=== PATIENT | male | born 1950 | race Caucasian/White ===

== ENCOUNTER 2020-04-08 06:34 | Outpatient (CLI) | payer MEDICARE, SELFPAY ==
[2020-04-08 17:27] LABS: SARS-CoV-2 RNA PCR Negative
== END 2020-04-08 06:35 | disposition home or self-care (01) ==
LOC: ANHCOVIDDT 06:34
PROVIDERS: Visit Provider Internal Medicine Gastroenterology
DX: Z01.812 Encounter for preprocedural laboratory examination (principal); Z11.59 Encounter for screening for other viral diseases
CPT/HCPCS: 87635; C9803; U0003

== ENCOUNTER 2020-04-11 02:51 | Day surgery (SDC) | payer MEDICARE, SELFPAY ==
[2020-04-05 14:35] VITALS: BMI 39.1
[2020-04-11 12:25] VITALS: BP 179/49; PULSE 88; RESP 20; TEMP 37.4; O2SAT 95
[2020-04-11 12:34] LABS: Glucose Point of Care 105 (65-105)
[2020-04-11] MEDS: SODIUM CHLORIDE 0.9% IV 500 ML 10 ML IV CONT (12:58)
--- NOTE | 2020-04-11 13:07 | WPDANESEPPF ---
Anes - Initial Pre Proc Eval Procedure: Operation Date: 04/11/20 13:30 Proposed Procedures p Esophagogastroduodenoscopy&Screen Colon - Martinez Blake MD Date/Time: 04/11/20 13:07 Surgeon: Martinez Blake MD Pre Op Diagnosis: Dysphagia, Neoplasm Screening Patient Data Age: 69 Gender: M Height: 5 ft 6 in Weight: 109.1 kg Last Vital Signs Temp 99.4 F 04/11/20 12:25 Pulse 88 04/11/20 12:25 Resp 20 04/11/20 12:25 BP 179/49 H 04/11/20 12:25 Pulse Ox 95 04/11/20 12:25 Allergies Allergy/AdvReac Type Severity Reaction Status Date / Time chlordiazepoxide Allergy Mild Confusion Verified 04/05/20 15:04 clarithromycin Allergy Mild Unknown Verified 04/05/20 15:04 Home Medications Medication Instructions Recorded Confirmed Type amlodipine 5 mg tablet 2.5 mg PO DAILY 03/27/20 04/05/20 History apixaban 5 mg tablet 5 mg PO BID 03/27/20 04/05/20 History furosemide 40 mg tablet 40 mg PO BID 03/27/20 04/05/20 History gabapentin 300 mg capsule 300 mg PO BID 03/27/20 04/05/20 History metoclopramide HCl 5 mg tablet 5 mg PO .prn tablet 03/27/20 04/05/20 History naloxegol 25 mg tablet 25 mg PO .PRN tablet 03/27/20 04/05/20 History ondansetron HCl 4 mg tablet 4 mg PO Q8H 03/27/20 04/05/20 History rosuvastatin 20 mg tablet 20 mg PO DAILY 03/27/20 04/05/20 History acetaminophen-codeine 1 tablet PO Q4H PRN 04/05/20 04/05/20 History [Tylenol-Codeine #3] amiodarone 200 mg PO DAILY 04/05/20 04/05/20 History cholecalciferol (vitamin D3) 50 mcg PO DAILY 04/05/20 04/05/20 History [Vitamin D3] ferrous sulfate 27 mg PO TID 04/05/20 04/05/20 History hydralazine 50 mg PO TID 04/05/20 04/05/20 History insulin aspart U-100 [Novolog 1 sliding scale dose SUBCUT 04/05/20 04/05/20 History U-100 Insulin aspart] USEASDIRECTD levothyroxine 125 mcg PO DAILY 04/05/20 04/05/20 History peg 3350-electrolytes 236 240 ml PO Q10M #4000 ml 04/05/20 Rx gram-22.74 gram-6.74 gram-5.86 gram solution tizanidine 4 mg PO HS 04/05/20 04/05/20 History triazolam 0.25 mg PO HS PRN 04/05/20 04/05/20 History Laboratory Tests 04/11/20 12:31 POC Capillary Glucose 105 mg/dl mg/dl (65-105) Patient hx anesthesia problems: none Family hx anesthesia problems: none FOR[facility], [facility] Past Medical History Medical History (Updated 04/11/20 @ 13:07 by Aime Perez MD) Afib CAD (coronary artery disease) had ablation done for AF; 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, rate of 40's since ablation, HR 88 today Constipation End stage renal disease being monitored per Dr Lei; no dialysis at present time Polyp, colonic Anes - Eval Final PreProcedure Day of Procedure 04/11/20 13:07 Patient weight: obese Heart: regular rate and rhythm Lungs: clear to auscultation Airway: Mallampati scale class III Neurological: alert and oriented Last oral intake: >/= 8 hours ASA classification: IV Emergent: no Anesthetic plan: proceed Anesthesia type and monitoring: general GIVS and standard monitoring Informed Consent: The patient's anesthetic plan and its attendant risks and benefits were discussed with the patient/family/POA. Questions were solicited and answers provided to the satisfaction of the patient/family/POA.
--- NOTE | 2020-04-11 13:25 | WPDHPUPDATE1 ---
History and Physical Update Update Date/Time: 04/11/20 13:25 History and Physical has been reviewed, including an updated exam of the patient. There are NO changes in the patient's condition. Risks, benefits, and alternatives have been discussed and questions answered. Patient agrees to proceed with procedure.
[2020-04-11 14:16] VITALS: BP 135/77; PULSE 74; RESP 13; O2SAT 98
[2020-04-11 14:26] VITALS: BP 167/60; PULSE 89; RESP 16; O2SAT 97
[2020-04-11 14:36] VITALS: BP 170/68; PULSE 84; RESP 16; O2SAT 97
== END 2020-04-11 15:23 | disposition home or self-care (01) ==
PROVIDERS: Visit Provider Internal Medicine Gastroenterology
PROC: 0DJ08ZZ Inspection of Upper Intestinal Tract, Via Natural or Artificial Opening Endoscopic (ICD-10-PCS; CPT 43235; principal; 2020-04-11 13:30)
DX: Z12.11 Encounter for screening for malignant neoplasm of colon (principal); K63.5 Polyp of colon; D12.2 Benign neoplasm of ascending colon; R13.10 Dysphagia, unspecified; K29.50 Unspecified chronic gastritis without bleeding; K44.9 Diaphragmatic hernia without obstruction or gangrene; K22.10 Ulcer of esophagus without bleeding; I48.91 Unspecified atrial fibrillation; I25.10 Atherosclerotic heart disease of native coronary artery without angina pectoris; N18.6 End stage renal disease; E66.9 Obesity, unspecified; Z68.38 Body mass index [BMI] 38.0-38.9, adult; Z79.4 Long term (current) use of insulin; Z79.01 Long term (current) use of anticoagulants
CPT/HCPCS: 45385; 45381; 43239; 87635; 88305; 88342; C9803; J2704; J7040; U0003

== ENCOUNTER 2021-04-23 22:04 | Inpatient (IN) | payer MEDICARE, SELFPAY ==
--- NOTE | ~2021-04-23 | CT_ITS ---
EXAMINATION: CT brain wo con EXAM DATE: 04/26/2021 22:39 INDICATION: Altered mental status. Confusion. TECHNIQUE: Spiral CT of the head was performed without contrast. Axial, coronal and sagittal images were reviewed. The dose-length product (DLP) for this examination was 681.00 mGy-cm. The exposure w as tailored according to patient size, and iterative reconstruction (ASIR) was used as additional dos e reduction technique. Comparison is made to prior examination from 04/24/2021. FINDINGS: There is no acute intraparenchymal hemorrhage. No evidence of intraparenchymal brain mass lesion. No evidence of acute infarction. Please note that initial head CT has limited sensitivity f or small or acute infarctions. There is mild periventricular and subcortical hypodensity, nonspecific but probably related to small vessel ischemic disease. There is mild to moderate prominence of the sulci and ventricles related to cerebral atrophy. There is intracranial carotid arteriosclerosis. There are no extra-axial collections. There is no mass effect or midline shift. The orbits are unr emarkable. Soft tissue is unremarkable. The visualized sinuses and mastoid air cells are well aerat ed. There is no significant interval change. IMPRESSION: 1. No acute intracranial findings. 2. Chronic age related findings. Reviewed, dictated and finalized at location A.
--- NOTE | ~2021-04-23 | XR_ITS ---
EXAMINATION: XR barium swallow modified DATE: 04/25/2021 14:52 INDICATION: Aspiration TECHNIQUE: The patient was given barium-containing material of multiple consistencies to swallow by t vito speech pathologist while I performed fluoroscopy. Dose-area product was 0.9 Gy-cm2. 1.3 minutes fluoroscopy time FINDINGS: Oral Stage: Within functional limits Pharyngeal Phase: Reduced laryngeal elevation Reduced laryngeal abduction Minimal vallecular and piriform sinus residue Laryngeal penetration with 3 cc thin fluid and pudding Aspiration with 5 cc thin fluid. Cough was triggered. Cervical/Esophageal Stage: Within functional limits IMPRESSION: Modified esophagram findings as above. Please refer [facility]. Reviewed, dictated and finalized at Location A. Reviewed, dictated and finalized at location A. IMPRESSION: Modified esophagram findings as above. Please refer to the speech t herapy report for specific recommendations.
--- NOTE | ~2021-04-23 | NM_ITS ---
EXAMINATION: NM bone scan whole body DATE: 04/26/2021 15:40 INDICATION: Hypercalcemia TECHNIQUE: 23.6 mCi Tc-99m HDP was administered intravenously. Delayed whole-body scintigrams were o btained. COMPARISON: Chest radiograph dated 04/25/2021. No other recent relevant imaging studies at our institu tion. FINDINGS: There is a small ring like focus of moderate increased uptake at the posterior right greater trochant er. Mild increased uptake is seen at the L1, L2, L4 and L5 vertebral bodies. Likely degenerative join t centered uptake at the bilateral sternoclavicular and acromioclavicular joints. Increased uptake an teriorly at the lower cervical spine most likely degenerative in etiology. IMPRESSION: 1. Atypical focus of increased uptake at the right greater trochanter which in absence of other imagi ng has a wide differential including malignant, infectious, posttraumatic or degenerative etiologies. Recommend right hip radiographs for correlation. 2. Additional mild increased uptake at the lower cervical spine and at multiple lumbar vertebral bodi es. The uptake at the vertebral bodies appears more extensive than typical for degenerative change an d would recommend additional lumbar spine radiographs for correlation. Reviewed, dictated and finalized at location A. IMPRESSION: 1. Atypical focus of increased uptake at the right greater trochanter which in absence of other imaging has a wide differential including malignant, infectiou s, posttraumatic or degenerative etiologies. Recommend right hip radiographs fo r correlation. 2. Additional mild increased uptake at the lower cervical spine and at multiple lumbar vertebral bodies. The uptake at the vertebral bodies appears more exten sive than typical for degenerative change and would recommend additional lumbar spine radiographs for correlation.
--- NOTE | ~2021-04-23 | XR_ITS ---
EXAMINATION: XR barium swallow modified DATE: 04/27/2021 15:06 INDICATION: Dysphagia. Aspiration pneumonia. TECHNIQUE: The patient was given barium-containing material of multiple consistencies to swallow by theron padron speech pathologist while I performed fluoroscopy. Dose-area product was 0.5 Gy-cm2. 0.7 minutes fluoroscopy time FINDINGS: Oral Stage: Within functional limits Pharyngeal Phase: Reduced laryngeal elevation, contrast material filling the valleculae prior to swa llow. Laryngeal penetration with thin liquids and pudding Aspiration with 5 cc thin liquids. Cough reflex was triggered. Cervical/Esophageal Stage: Within functional limits IMPRESSION: Modified esophagram findings as above. Please refer to the speech therapy report for spec ific recommendations. Reviewed, dictated and finalized at Location [facility]. Reviewed, dictated and finalized at location A. IMPRESSION: Modified esophagram findings as above. Please refer to the speech t herapy report for specific recommendations.
--- NOTE | ~2021-04-23 | CT_ITS ---
EXAMINATION: CT brain wo con DATE: 04/24/2021 13:13 INDICATION: Confusion and atrial fibrillation. TECHNIQUE: Computed tomography (CT) of the head was performed without intravenous contrast. Sagittal and coronal reconstructions were performed. The mA was adjusted according to patient size. Iterative reconstruction technique was employed. The dose-length product was 681.00 mGy-cm. COMPARISON: None FINDINGS: No acute intracranial hemorrhage, acute infarction or abnormal extra axial fluid collection. There is mild scattered white matter hypoattenuation consistent with chronic small vessel ischemic disease. S ymmetric prominence of the sulci consistent with mild age-appropriate diffuse cerebral volume loss. Ventricles are normal and symmetric. No mass/mass effect. Changes of left intraocular lens replacemen t. The orbits, paranasal sinuses and mastoid air cells are normal. Intracranial calcified cerebral at herosclerosis is noted. IMPRESSION: 1. No acute intracranial process. 2. Age-related changes including mild diffuse volume loss and mild scattered white matter hypoattenua tion consistent with chronic small vessel ischemic disease. Reviewed, dictated and finalized at location A. IMPRESSION: 1. No acute intracranial process. 2. Age-related changes including mild diffuse volume loss and mild scattered wh ite matter hypoattenuation consistent with chronic small vessel ischemic diseas e.
--- NOTE | ~2021-04-23 | US_ITS ---
EXAMINATION: US renal BI DATE: 04/26/2021 14:16 INDICATION: Hematuria TECHNIQUE: Multiple ultrasound grayscale images of the kidneys were obtained. COMPARISON: 01/06/2017 FINDINGS: The right kidney measures 9.6 x 5.3 x 5.0 cm. The left kidney measures 10.0 x 5.4 x 4.1 cm. The kidne ys demonstrate normal echogenicity. There is no hydronephrosis in either kidney. No stones identifie d. The bladder is decompressed around a Jaimes catheter which limits evaluation. IMPRESSION: 1. Normal kidneys without hydronephrosis. Reviewed, dictated and finalized at location A.
--- NOTE | ~2021-04-23 | XR_ITS ---
XR lumbar spine 2-3V DATE: 04/27/2021 12:16 INDICATION: Abnormal bone scan TECHNIQUE: AP, lateral, coned lateral lumbosacral views COMPARISON: 04/26/2021 radionuclide bone scan FINDINGS: Very prominent bridging osteophytes of the lumbar spine are noted. There is very prominent degenerative change at the apophyseal joints L4-5 and L5-S1 with associated g rade 1 anterolisthesis at L4-5. There is prominent degenerative disc disease at L5-S1, moderately prominent degenerative disc disease at L4-5. No fracture or bone destruction is evident. The lumbar pedicles appear intact. Extensive arterial calcifications Bilateral vas deferens calcifications suggesting diabetes. IMPRESSION: Extensive degenerative changes of the lumbar spine which account for the increased uptake noted on the 04/26/2021 Reviewed, dictated and finalized at location A. IMPRESSION: Extensive degenerative changes of the lumbar spine which account fo r the increased uptake noted on the 04/26/2021
--- NOTE | ~2021-04-23 | XR_ITS ---
EXAMINATION: XR chest 1V portable DATE: 04/25/2021 05:51 INDICATION: Aspiration TECHNIQUE: frontal view of the chest was obtained. COMPARISON: Chest radiograph dated 04/24/2021 FINDINGS: Cardiomegaly with pulmonary vascular congestion. Increasing opacities with peribronchial cuffing in t he bilateral mid and lower lung zones. No pleural effusion or pneumothorax. Dual lead pacemaker seen with leads projecting over the expected locations of the right atrium and right ventricle. IMPRESSION: 1. Increasing opacities and peribronchial cuffing in the bilateral mid and lower lung zones which cou ld represent pulmonary edema, pneumonia and/or aspiration pneumonitis. 2. Cardiomegaly with pulmonary vascular congestion. Reviewed, dictated and finalized at location A. IMPRESSION: 1. Increasing opacities and peribronchial cuffing in the bilateral mid and lowe r lung zones which could represent pulmonary edema, pneumonia and/or aspiration pneumonitis. 2. Cardiomegaly with pulmonary vascular congestion.
--- NOTE | ~2021-04-23 | XR_ITS ---
XR hip RT min 3V w AP pelvis DATE: 04/27/2021 12:16 INDICATION: Abnormal bone scan TECHNIQUE: AP pelvis. AP, lateral and crosstable lateral views of right hip COMPARISON: 04/26/2021 radionuclide bone scan FINDINGS: No pelvic fracture or bone destruction. The pubic symphysis and sacroiliac joints are intac t. No fracture, dislocation, avascular necrosis or bone destruction of the right hip is evident. Ther e is mild osteoarthritis at the hip joints. Extensive iliac and femoral arterial calcifications. Bilateral vas deferens calcifications, suggesting diabetes. No radiographic correlate for the increased activity overlying the right greater trochanter on the po sterior bone scan image is noted. There is no corresponding increased uptake on the anterior bone sca n image. Consider possible contamination. IMPRESSION: Mild bilateral hip osteoarthritis Extensive arterial calcifications and bilateral vas deferens calcifications, suggesting diabetes Reviewed, dictated and finalized at location A. IMPRESSION: Mild bilateral hip osteoarthritis Extensive arterial calcifications and bilateral vas deferens calcifications, peterson ggesting diabetes
--- NOTE | ~2021-04-23 | XR_ITS ---
EXAMINATION: XR chest 1V portable EXAM DATE: 04/24/2021 00:21 INDICATION: Epigastric pain, hx of afib and pace maker. TECHNIQUE: Portable AP frontal chest x-ray was obtained. Comparison is made to prior examination from 06/05/2017. FINDINGS: There has been interval placement of a dual-lead pacemaker. There is cardiomegaly. No confl uent consolidation, pneumothorax or pleural effusion suspected. There are no osseous abnormalities id entified. IMPRESSION: Cardiomegaly. Reviewed, dictated and finalized at location G. IMPRESSION: Cardiomegaly.
--- NOTE | ~2021-04-23 | XR_ITS ---
MODIFIED ESOPHAGRAM HISTORY: Aspiration. Dysphagia. TECHNIQUE: Modified barium esophagram was performed by speech pathologist under radiologist fluorosco pic guidance. This was recorded on tape. The exam was reviewed on 05/02/2021 10:15 CDT. The DAP for this procedure was 0.736 Gycm2. Fluoroscopy time is 1.2 minutes. FINDINGS: Lateral projection of the cervical spine demonstrates normal alignment with prominent alina dging osteophytes anteriorly.. Oral stage of swallowing is within normal limits. During pharyngeal st age there is reduced laryngeal elevation, reduced laryngeal adduction, reduced tongue base retraction with vallecular residue. There is laryngeal penetration with aspiration. The cervical esophageal pha se is within normal limits.. IMPRESSION: 1: Laryngeal penetration with aspiration. 2: Please refer to speech pathologist report for additional detail. Reviewed, dictated and finalized at location A.
[2021-04-23 22:34] VITALS: BP 160/56; PULSE 69; RESP 14; TEMP 36.3; O2SAT 98
[2021-04-24] VITALS (12 sets, daily range): BP systolic 147–182; BP diastolic 65–108; PULSE 103–139; RESP 18–24; TEMP 36–37.3; O2SAT 95–99; BMI 33.9
--- NOTE | 2021-04-24 | ECHO_ITS ---
Patient Info Name: Ramin Colon Age: 70 years : 1950 Gender: Male Ht: 67 in Wt: 216 lbs BSA: 2.19 m2 HR: 110 bpm BP: 174 / 65 mmHg Heart Rhythm: Atrial Fibrillation Technical Quality: Good Exam Date: 04/24/2021 2:11 PM Exam Location: [facility] Patient Status: Inpatient Admit Date: 04/24/2021 Staff Ordering Physician: Mic Delarosa MD Senior Software Project Manager: Vu Mast, BRUCE, RT Attending Provider: Brandi Alves PA-C Exam Type: CA echo dop color flow w con Study Info Indications I50.9 - Heart failure, unspecified Complete two-dimensional, color flow and Doppler transthoracic echocardiogram is performed with contrast to opacify the left ventricle and to improve the deliniation of the left ventricle endocardial borders. Summary 1. Technically difficult study with limited views despite definity echo contrast enhancement due to poor endomyocardial border definition. 2. Left ventricular chamber dimension is normal. 3. Left ventricular systolic function is normal, estimated at 55-60%. 4. There is moderate concentric increased left ventricular wall thickness. 5. Left atrial chamber dimension is severely enlarged. 6. Unable to estimate PA systolic pressure due to poor spectral resolution of tricuspid regurgitant jet velocity. Left Ventricle Left ventricular chamber dimension is normal. Left ventricular systolic function is normal, estimated at 55-60%. There is moderate concentric increased left ventricular wall thickness. The left ventricular diastolic function is indeterminate. Technically difficult study with limited views despite definity echo contrast enhancement due to poor endomyocardial border definition. Right Ventricle Right ventricular chamber dimension is not well visualized. Left Atria Left atrial chamber dimension is severely enlarged. Right Atria Right atrial chamber dimension is mildly enlarged. Aortic Valve The aortic valve is not well visualized. There is mild aortic valve sclerosis. There is no aortic valve stenosis. There is no aortic valve regurgitation. Pulmonic Valve The pulmonic valve is not well visualized. Mitral Valve The mitral valve has thickened leaflets. There is mild mitral valve regurgitation. The mitral valve annulus is mildly calcified. Tricuspid Valve The tricuspid valve leaflets are not well visualized. There is trace tricuspid valve regurgitation. Unable to estimate PA systolic pressure due to poor spectral resolution of tricuspid regurgitant jet velocity. Pericardium/Pleural The pericardium appears normal. There is small pericardial effusion. Aorta The aortic root size at the sinus of Valsalva is normal. Left Ventricular Outflow Tract Name Value Normal LVOT 2D LVOT Diameter 2.05 cm LVOT Doppler LVOT Peak Gradient 6 mmHg LVOT Mean Gradient 3 mmHg LVOT VTI 20.81 cm LVOT VTI/AV VTI Ratio 0.81 LVOT Stroke Volume 68.76 ml LVOT CO 7.88 l/min LVOT CI
--- NOTE | 2021-04-24 00:01 | ECG_ITS ---
Measurements Intervals [place] Rate: 121 P: VA: 0 QRS: -23 QRSD: 101 T: 124 QT: 321 QTc: 456 Interpretive Statements ATRIAL FIBRILLATION WITH RAPID VENTRICULAR RESPONSE DELAYED PRECORDIAL R/S TRANSITION ST-T WAVE ABNORMALITY IN HIGH LATERAL LEADS- CONSIDER ISCHEMIA BASELINE ARTIFACT- I, II, III, AVR, AVL, AVF ABNORMAL ECG Electronically Signed On 04-24-2021 6:41:36 CDT by Orlando Milner D.O.
--- NOTE | 2021-04-24 00:03 | ED.GENADULT ---
HPI - General Adult General Chief complaint: Recheck/Abnormal Lab/Rx Stated complaint: abnormal labs Time Seen by Provider: 04/23/21 23:57 History of Present Illness HPI narrative: Patient 70-year-old gentleman who presents the emergency department with chief complaint of abnormal labs. Patient reports that he has history of renal insufficiency and has been taking a large number of times daily about 6 to 7/day every day for chronic epigastric discomfort and reflux. The patient reports that he has been weaker than normal and actually having difficulty ambulating and grasping things. The patient reports that his primary fur machine operator today did labs on him and called him this evening and told him that his calcium levels were extremely elevated. Patient was recommended to go to the emergency department as soon as possible for hydration and admission Related Data Home Medications Medication Instructions Recorded Confirmed apixaban 5 mg tablet 5 mg PO BID 03/27/20 04/05/20 furosemide 40 mg tablet 40 mg PO BID 03/27/20 04/05/20 metoclopramide HCl 5 mg tablet 5 mg PO .prn tablet 03/27/20 04/05/20 naloxegol 25 mg tablet 25 mg PO .PRN tablet 03/27/20 04/05/20 ondansetron HCl 4 mg tablet 4 mg PO Q8H 03/27/20 04/05/20 rosuvastatin 20 mg tablet 20 mg PO DAILY 03/27/20 04/05/20 acetaminophen-codeine 1 tablet PO Q4H PRN 04/05/20 04/05/20 [Tylenol-Codeine #3] cholecalciferol (vitamin D3) 50 mcg PO DAILY 04/05/20 04/05/20 [Vitamin D3] ferrous sulfate 27 mg PO TID 04/05/20 04/05/20 hydralazine 50 mg PO TID 04/05/20 04/05/20 insulin aspart U-100 [Novolog 1 sliding scale dose SUBCUT 04/05/20 04/05/20 U-100 Insulin aspart] USEASDIRECTD levothyroxine 125 mcg PO DAILY 04/05/20 04/05/20 tizanidine 4 mg PO HS 04/05/20 04/05/20 triazolam 0.25 mg PO HS PRN 04/05/20 04/05/20 Allergies Allergy/AdvReac Type Severity Reaction Status Date / Time chlordiazepoxide Allergy Mild Confusion Verified 10/03/20 10:13 clarithromycin Allergy Mild Unknown Verified 10/03/20 10:13 Review of Systems Review of Systems: Narrative: A 10 system review of systems was completed on the patient and is negative except for what is stated in the HPI. Nursing and ancillary documentation was reviewed. PENDING SALE TO [facility] Past Medical History Medical History Afib CAD (coronary artery disease) had ablation done for AF; 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, rate of 40's since ablation, HR 88 today Constipation End stage renal disease being monitored per Dr Lei; no dialysis at present time Polyp, colonic Social History Social History Smoking status: Never smoker Exam Narrative: Exam Narrative: GENERAL: Well-appearing, well-nourished, and in no acute distress. HEAD: Normocephalic, atraumatic. EYES: PERRLA and EOMI. ENT: Nares clear, no rhinorrhea or epistaxis. Mucous membranes moist. NECK: Supple. CHEST: Clear to auscultation. No respiratory distress. HEART: Regular rate and rhythm. No murmur heard. Normal peripheral pulses. ABDOMEN: Soft, nontender, nondistended, normal active bowel sounds. EXTREMITIES: Normal range of motion. No edema. SKIN: Warm, dry, no rash. NEURO: No focal deficits. Alert and oriented x3. PSYCH: Normal mood and affect. Course Vital Signs Vital signs: Vital Signs Temperature 36.3 C L 04/23/21 22:34 Pulse Rate 69 04/23/21 22:34 Respiratory Rate 14 04/23/21 22:34 Blood Pressure 160/56 H 04/23/21 22:34 Pulse Oximetry 98 04/23/21 22:34 Temperature 36.3 C L 04/23/21 22:34 Pulse Rate 69 04/23/21 22:34 Respiratory Rate 14 04/23/21 22:34 Blood Pressure 160/56 H 04/23/21 22:34 Pulse Oximetry 98 04/23/21 22:34 Medical Decision Making Vital Signs Vital Signs: Vital Signs Temperature 36.3 C L 04/23/21 22:34 Pulse Rate 69 04/23/21 22:34 Respiratory Rate 14 04/05
[2021-04-24 01:17] LABS: Basophils Percent Auto 0.6 % (0.2-1.2); Eosinophils Absolute Auto 0.2 K/mm3 (0-0.3); Eosinophils Percent Auto 3.1 % (0-4.4); Hematocrit 34.8 % (42.0-52.0); Hemoglobin 10.8 g/dL (14.0-18.0); Immature Granulocyte Absolute 0.03 K/mm3 (0.00-0.031); Immature Granulocyte Percent A 0.5 % (0-0.5); Immature Platelet Fraction Pct 6.2 % (0.9-11.2); Lymphocytes Absolute Auto 1.64 K/mm3 (0.9-3.2); Lymphocytes Percent Auto 25.5 % (18.3-44.2); Mean Corpuscular Volume 90.2 fl (80-100); Mean Platelet Volume 11.4 fl (7.4-10.4); Monocytes Absolute Auto 0.5 K/mm3 (0.1-0.6); Monocytes Percent Auto 8.2 % (2.6-8.5); Neutrophils Percent Auto 62.1 % (45.5-73.1); Platelet Count Result 129 k/mm3 (150-375); Red Blood Count 3.86 M/mm3 (4.6-6.20); Red Cell Distribution Width 14.3 % (11.5-14.5); White Blood Count 6.4 K/mm3 (4.5-10.0)
[2021-04-24] MEDS: SODIUM CHLORIDE 0.9% IV 1,000 ML 999 ML IV CONT ×2 (01:18→02:40)
[2021-04-24] MEDS: MORPHINE SULFATE (*CRX) 4 MG/ML INJ IV PUSH (01:19)
[2021-04-24 01:32] LABS: Alanine Aminotransferase 19 U/L (4-50); Albumin Level 4.1 g/dL (3.5-5.1); Alkaline Phosphatase 85 U/L (38-126); Anion Gap 7 mmol/L (8-16); Aspartate Amino Transferase 58 U/L (17-59); Bilirubin,Total 0.5 mg/dL (0.2-1.3); Blood Urea Nitrogen 37 mg/dL (9-20); Calcium 13.7 mg/dL (8.4-10.2); Carbon Dioxide 37 mmol/L (22-30); Chloride 89 mmol/L (98-107); Estimated CRCL calculation 25 ml/min; Estimated Glomerular Filt Rate 21; Glucose 172 mg/dL (65-110); Magnesium 2.7 mg/dL (1.6-2.3); Potassium 3.6 mmol/L (3.4-5.0); Sodium 133 mmol/L (137-145)
[2021-04-24 01:56] LABS: Troponin I 0.672 ng/mL (0.000-0.034)
[2021-04-24 01:59] LABS: Add Urine Microscopic? YES; Appearance Urine Clear (Clear); Bacteria Urine Trace /hpf; Bilirubin Urine Negative (Negative); Blood Urine 2+ (Negative); Color Urine Yellow (Yellow); Glucose Urine UA 2+ mg/dL (Negative); Ketones Urine Negative (Negative); Leukocyte Esterase Ur Negative LEU/UL (Negative); Mucus Urine Rare /lpf; Nitrate Urine Negative (Negative); Protein Urine 1+ mg/dL (Negative); RBC Urine 51-75 /hpf (0-2); Specific Grav Ur 1.011 (1.001-1.035); Urobilinogen Urine Negative mg/dL (<2.0); WBC Urine 0-3 /hpf
[2021-04-24] MEDS: HYDROmorphone HCL INJ (*CRX) 1 MG/ML SYR IV PUSH (02:04)
--- NOTE | 2021-04-24 03:51 | PM.IMHP ---
H&P: HPI History of Present Illness Date/Time: 04/24/21 03:51 Chief Complaint: ABNORMAL LAB VALUE Narrative: THIS IS A 70-YEAR-OLD MALE WITH PAST MEDICAL HISTORY SIGNIFICANT FOR TYPE 2 DIABETES MELLITUS INSULIN DEPENDENT, GERD, DYSLIPIDEMIA, CHRONIC KIDNEY DISEASE, HYPERTENSION, ON CHRONIC ANTICOAGULATION, INTRACARDIAC DEVICE INSITU. 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 PATIENT STATES THAT HE HAS HAD EPIGASTRIC DISCOMFORT AND HIS HAS BEEN TAKING TUMS 6-7 TABS DAILY HE ALSO HAS BEEN FEELING VERY WEAK. HE DENIES ANY FEVERS RIGORS OR CHILLS NO CHEST PAIN NO NAUSEA NO VOMITING NO DIARRHEA NO SHORTNESS OF BREATH NO COUGH NO SPUTUM PRODUCTION NO PND NO ORTHOPNEA. PRELIMINARY WORKUP WAS SIGNIFICANT FOR A TOTAL CALCIUM OF 13, CREATININE OF 3. TROPONIN OF 0.672. Review of Systems Review of Systems: Narrative: ABNORMAL LAB VALUE Constitutional: Constitutional: Denies chills, Reports fatigue, Denies malaise and Reports weakness Eyes: Eyes: Denies change in vision ENT: Denies dysphagia, Denies nasal discharge, Denies nasal obstruction and Denies odynophagia Cardiovascular: Cardiovascular: Denies irregular heart rhythm, Denies radiating jaw, neck or arm pain, Denies palpitations and Denies dyspnea on exertion Respiratory: Respiratory: Denies cough and Denies dyspnea Gastrointestinal: Gastrointestinal: Reports abdominal pain ( EPIGASTRIC DISCOMFORT), Reports dyspepsia, Reports heartburn, Denies nausea and Denies vomiting Genitourinary: Genitourinary: Reports no additional male genitourinary complaints Musculoskeletal: Musculoskeletal: Reports no additional musculoskeletal complaints Integumentary/Breasts: Skin/Breast: Reports system reviewed and no additional complaints, except as docu Neurologic: Reports system reviewed and no additional complaints, except as documented Psychiatric: Psychiatric: Reports no additional psychiatric complaints Endocrine: Endocrine: Reports no additional endocrine complaints Hematologic/Lymphatic: Hematologic/Lymphatic: Reports no additional hematologic/lymphatic complaints Allergic/Immunologic: Allergic/Immunologic: Reports no additional allergic/immunologic complaints PMFSH Past Medical History Medical History Afib CAD (coronary artery disease) had ablation done for AF; 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, rate of 40's since ablation, HR 88 today Constipation End stage renal disease being monitored per Dr Lei; no dialysis at present time Polyp, colonic Family History Family History (Updated 04/24/21 @ 04:05 by Lynette Rooney RN) Father Heart disease Social History Social History Smoking status: Never smoker Meds Home Medications and Allergies Home Medications Medication Instructions Recorded Confirmed Type apixaban 5 mg tablet 5 mg PO BID 03/27/20 04/05/20 History furosemide 40 mg tablet 40 mg PO BID 03/27/20 04/05/20 History metoclopramide HCl 5 mg tablet 5 mg PO .prn tablet 03/27/20 04/05/20 History naloxegol 25 mg tablet 25 mg PO .PRN tablet 03/27/20 04/05/20 History ondansetron HCl 4 mg tablet 4 mg PO Q8H 03/27/20 04/05/20 History rosuvastatin 20 mg tablet 20 mg PO DAILY 03/27/20 04/05/20 History acetaminophen-codeine 1 tablet PO Q4H PRN 04/05/20 04/05/20 History [Tylenol-Codeine #3] cholecalciferol (vitamin D3) 50 mcg PO DAILY 04/05/20 04/05/20 History [Vitamin D3] ferrous sulfate 27 mg PO TID 04/05/20 04/05/20 History hydralazine 50 mg PO TID 04/05/20 04/05/20 History insulin aspart U-100 [Novolog 1 sliding scale dose SUBCUT 04/05/20 04/05/20 History U-100 Insulin aspart] USEASDIRECTD levothyroxine 125 mcg PO DAILY 04/05/20 04/05/20 History tizanidine
--- NOTE | 2021-04-24 04:23 | ADMGEN ---
This patient, Ramin Colon, was admitted to IMU Room 205-01. Patient/family oriented to hospital policies and general routines including ID bracelet, bed and alarms, visiting hours, pain management, procedures, bathroom and other care routines, personal items, smoking policy, room service/diet, and visiting hours. Information on how to activate the Rapid Response Team has been discussed. Patient/Family are encouraged to report perceived risks to care and to ask questions if they do not understand what they are told or what they should do. report Javi AVINA [id number]
[2021-04-24] MEDS: SODIUM CHLORIDE 0.9% IV 1,000 ML 125 ML IV CONT ×3 (05:10→20:43)
[2021-04-24 06:26] LABS: Anion Gap 10 mmol/L (8-16); Blood Urea Nitrogen 33 mg/dL (9-20); Calcium 12.9 mg/dL (8.4-10.2); Carbon Dioxide 29 mmol/L (22-30); Chloride 96 mmol/L (98-107); Estimated CRCL calculation 25 ml/min; Estimated Glomerular Filt Rate 23; Glucose 154 mg/dL (65-110); Potassium 3.1 mmol/L (3.4-5.0); Sodium 135 mmol/L (137-145)
--- NOTE | 2021-04-24 07:03 | PM.CNNEP ---
Assessment and Plan Assessment and plan (1) Hypercalcemia: Code(s): E83.52 - Hypercalcemia Status: Acute Assessment and Plan: The patient has hypercalcemia. This is most likely due to excess Tums ingestion in the presence of stage 4 chronic kidney disease. He had a PTH level at the same time as his calcium as an outpatient and was less than 8. Will hold off on the Tums. He is getting Calcitonin. I adjusted the dose. He does have some constipation which is probably from hypercalcemia. (2) Elevated troponin: Code(s): R77.8 - Other specified abnormalities of plasma proteins Status: Acute Assessment and Plan: The patient is elevated troponins. The indigestion is having does not seem to be exertional but he is at high risk for coronary disease. He says that he has not ever had a heart attack but he does have atrial fibrillation a pacemaker diabetes hypertension and chronic kidney disease all of which would increase the risk for him having coronary disease. Cardiology has been consulted. The patient is on Eliquis and aspirin. (3) Chronic kidney disease, stage 4 (severe): Code(s): N18.4 - Chronic kidney disease, stage 4 (severe) Status: Acute Assessment and Plan: The patient's creatinine stable. Etiology is diabetes and hypertension. (4) Afib: Code(s): I48.91 - Unspecified atrial fibrillation Status: Acute Assessment and Plan: The patient has AFib . Heart rate has been anywhere between 70 and 120. Will add metoprolol for his blood pressure anyway Which should help with his rate as well.. (5) Essential (primary) hypertension: Code(s): I10 - Essential (primary) hypertension Status: Acute Assessment and Plan: His blood pressure is high. Will restart his outpatient meds. 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 (7) Type 2 diabetes mellitus with diabetic nephropathy: Code(s): E11.21 - Type 2 diabetes mellitus with diabetic nephropathy Status: Acute Assessment and Plan: On meds per hospitalist History of Present Illness Reason for Consult Consult date: 04/24/21 Chief Complaint Chief complaint: Hypercalcemia,Elevated Troponin,Acute Kidney Injur History of Present Illness Narrative: Ramin is a very pleasant 70-year-old gentleman who has multiple medical problems including chronic kidney disease with a baseline creatinine of about 2.4, atrial fibrillation, permanent pacemaker, colonic polyp, GERD, vitamin-D deficiency, anemia, hypertension, diabetes, hypothyroidism, hyperlipidemia. The patient had some blood work done yesterday for appointment in my office and his calcium level was 14.7. I called him and talked to his . He has been having indigestion has been taking 6 or 7 times per day. The patient was feeling awful with weakness so I asked him to go to the emergency room. In the ER he was evaluated and his calcium was still high at 12.7. His troponin was elevated as well so he was admitted. The patient says that his indigestion comes after meals usually. it does not come with exertion. He says that he climbs steps yesterday with the help of his and he did not develop indigestion climbing the steps. He does not have any shortness of breath. He does not have any discomfort in his chest arm or jaw. Review of Systems Constitutional: Constitutional: Reports no additional constitutional complaints Eyes: Eyes: Reports no additional eye complaints ENT: Reports system reviewed and no additional complaints, except as documented Cardiovascular: Cardiovascular: Reports no additional cardiovascular complaints Respiratory: Respiratory: Reports no additional respiratory complaints Gastrointestinal: Gastrointestinal: Reports no ad
[2021-04-24 08:42] LABS: Troponin I 0.438 ng/mL (0.000-0.034)
--- NOTE | 2021-04-24 08:51 | PM.CNCAR ---
Assessment and Plan Assessment and plan (1) Atrial fibrillation with RVR: Code(s): I48.91 - Unspecified atrial fibrillation Status: Acute Assessment and Plan: 70-year-old male with multiple medical problems- hypertension, atrial fibrillation on anticoagulation ( history of multiple DC cardioversions, ?? ablation), Bradyarrhythmia status post pacemaker placement at outside hospital ( procedure note not available), diabetes mellitus on insulin, CKD, hypothyroidism on thyroxine replacement, dyslipidemia. patient admitted to the hospital with generalized weakness and hypercalcemia in the setting of excessive intake of tums which patient was taken for dyspepsia. Patient was also found to be in atrial fibrillation with RVR. currently in AFib with heart rates in 100s. - Optimize rate control, increase metoprolol tartrate dose to 100 mg p.o. b.i.d.. Patient's blood pressure is elevated, and will be able to tolerate the higher dose. Also, patient has permanent pacemaker. Patient has history of persistent atrial fibrillation with multiple cardioversions. Rate control strategy will be pursued unless rhythm control is necessary for any hemodynamic instability. - May resume anticoagulation with apixaban, unless a surgical procedure is anticipated. Continue PPI. - Patient has mild troponin elevation in the setting of AFib with RVR CKD. No active ischemic symptoms at present. Will check echocardiogram with Doppler to assess LV function and wall motion. Patient does not recall any history of known obstructive CAD. He has been following up with a hoop flaring machine operator in [place]. Need for any ischemic workup will be determined based on patient's clinical course and echo findings. - Continue to monitor on telemetry. (2) Hypercalcemia: Code(s): E83.52 - Hypercalcemia Status: Acute Assessment and Plan: Hydration, calcitonin. Management as per primary team and Nephrology (3) Chronic kidney disease, stage 4 (severe): Code(s): N18.4 - Chronic kidney disease, stage 4 (severe) Status: Acute Assessment and Plan: Management as per nephrology History of Present Illness History of Present Illness Consult date/time: 04/24/21 08:51 DATE OF CONSULT:04/24/2021 REASON FOR CONSULT: atrial fibrillation REQUESTING PHYSICIAN:Nicky Mortensen MD CHIEF COMPLAINT: HPI: 70-year-old male with hypertension, atrial fibrillation on anticoagulation ( history of multiple DC cardioversions, ?? ablation), Bradyarrhythmia status post pacemaker placement at outside hospital ( procedure note not available), diabetes mellitus on insulin, CKD, hypothyroidism on thyroxine replacement, dyslipidemia. Patient presented to [facility] on 04/23/2021 with Complains of generalized weakness and abnormal labs. Patient has been taking Tums multiple times a day for dyspepsia, for about 1 year. He was found to have abnormal labs with elevated calcium levels and was advised to come to the hospital by his ssas developer. His calcium at presentation was 13.7. has been receiving IV fluids and calcitonin. Patient denies palpitations, chest pain or shortness of breath. He has sedentary lifestyle. He is somewhat a poor historian. Review of medical records indicate that he had cardioversion multiple times at [facility], 1st cardioversion was in October 2011; 3 cardioversions in 2017. He reports compliance with chronic anticoagulation with apixaban, denies any major bleeding complications. He states that he follows up with a hoop flaring machine operator in [place]. He does not recall the name. EKG at presentation on my personal evaluation showed atrial fibrillation with RVR, ventricular rate 121 beats per minute, ST-T abnormality. chest x-ray showed cardiomegaly without pulmonary vascular congestion. Troponins are mildly elevated with peak troponin level of 0.672 which is trending downwards. Reason For Visit: Hypercalcemia,Elevated Tropo
[2021-04-24] MEDS: PANTOPRAZOLE 40 MG TABLET PO (08:54)
[2021-04-24] MEDS: METOPROLOL TARTRATE 50 MG TAB PO (08:54)
[2021-04-24] MEDS: ASPIRIN 81 MG CHEWABLE TABLET PO (08:55)
[2021-04-24] MEDS: amLODIPine BESYLATE 5 MG TABLET PO (08:55)
[2021-04-24] MEDS: ISOSORBIDE MONONITRATE 30 MG TAB.ER.24H PO (08:56)
[2021-04-24] MEDS: CALCITONIN SALMON INJ 400 UNITS/2 ML VIAL SUB-Q ×2 (09:29→17:18)
[2021-04-24] MEDS: POTASSIUM CHLORIDE 20 MEQ TABLET 40 MEQ PO (12:21)
--- NOTE | 2021-04-24 12:22 | PM.IMPN ---
Progress Note: A&P Assessment and Plan (1) Hypercalcemia: Code(s): E83.52 - Hypercalcemia Status: Acute Assessment and Plan: Related to excess use of TUMs. Avoid TUMs. Appreciate nephrology consultation Continue with calcitonin Monitor calcium levels closely (2) Atrial fibrillation with RVR: Code(s): I48.91 - Unspecified atrial fibrillation Status: Acute Assessment and Plan: With rate up to 140 appreciate cardiology consultation metoprolol tartrate has been increased to 100 mg bid resume Eliquis monitor on telemetry (3) Elevated troponin: Code(s): R77.8 - Other specified abnormalities of plasma proteins Status: Acute Assessment and Plan: elevated with peak up to 0.672. may be demand ischemia given atrial fibrillation with RVR. he is asymptomatic. appreciate cardiology consultation Echocardiogram has been ordered monitor on telemetry (4) Chronic kidney disease, stage 4 (severe): Code(s): N18.4 - Chronic kidney disease, stage 4 (severe) Status: Acute Assessment and Plan: he is established with Nephrology. Renal function is stable at this time monitor renal function closely. renally dose medications. (5) Essential (primary) hypertension: Code(s): I10 - Essential (primary) hypertension Status: Acute Assessment and Plan: Blood pressure has been elevated above target. last BP 174/65 metoprolol tartrate has been increased monitor blood pressure trends with this medication adjustment to ensure able to tolerate. Holding hydralazine and Lasix at this time. resume when clinically appropriate (6) Type 2 diabetes mellitus with diabetic nephropathy: Code(s): E11.21 - Type 2 diabetes mellitus with diabetic nephropathy Status: Acute Assessment and Plan: blood sugars generally well controlled. begin Accu-Cheks, sliding scale insulin, hypoglycemic protocol Lantus 15 units qHS. uptitrate as needed based on blood sugar trends check updated A1c (7) Confusion: Code(s): R41.0 - Disorientation, unspecified Status: Acute Assessment and Plan: He exhibits confusion when answering questions. Discussed with who reports confusion ongoing a little over 1 week. Etiology unclear. Possibly due to electrolyte abnormality/hypercalcemia. Plan as above. Will obtain head CT. Less likely to be acute CVA given duration of symptoms, but he has been in Afib. Monitor mental status closely (8) Generalized weakness: Code(s): R53.1 - Weakness Status: Acute Assessment and Plan: also reports difficulty ambulating approximately 1 week. 2 days prior to presentation he developed need to use walker for assistance. PT/OT dioni appreciated Subjective Date/time seen: 04/24/21 12:22 Interval history: date of service 04/24/2021 Ramin Colon is a 70-year-old male with a history chronic kidney disease stage 4, CAD, atrial fibrillation, hypertension, type 2 diabetes mellitus is seen in follow-up for hypercalcemia. he is feeling fairly well today and is only complaint is that he feels bloated. He estimates that his last bowel movement was 3 days ago. He is passing gas. Denies nausea or vomiting. He tolerated his diet today. He also complains of pain in his neck and back which is chronic in nature. He feels very weak and is unable to get up without assistance. Denies dizziness or lightheadedness. Denies dysphagia or speech changes. Denies numbness tingling in the extremities. Denies unilateral weakness. He denies headaches or body aches. His responses were mostly appropriate , but after talking with him for a while, I was able to discern that he was subtly confused. He repeated some of his questions and exhibited some confusion in others. I spoke with his who notes that for a little over a week, he has become qu
[2021-04-24] MEDS: PERFLUTREN LIPID MICROSPHERES 1.5 ML VIAL DILUTED TO 10 ML TOTAL VOLUME IV PUSH (14:41)
[2021-04-24 16:32] LABS: Glucose Point of Care 240 mg/dl (65-105)
[2021-04-24] MEDS: APIXABAN 5 MG TABLET PO (17:17)
[2021-04-24] MEDS: traMADol HCL (*CRX) 50 MG TABLET PO (17:18)
[2021-04-24] MEDS: INSULIN ASPART (*BKC) 100 UNITS/ML SUB-Q (17:21)
[2021-04-24] MEDS: ONDANSETRON INJ 4 MG/2 ML VIAL IV PUSH (17:32)
[2021-04-24] MEDS: ACETAMINOPHEN/CODEINE (*CRX) 300/30 MG TABLET 1 TAB PO (20:41)
[2021-04-24] MEDS: INSULIN GLARGINE (*BKC) 100 UNITS/ML 15 UNITS SUB-Q (20:42)
[2021-04-24] MEDS: METOPROLOL TARTRATE 50 MG TAB 100 MG PO (20:42)
[2021-04-24 21:19] LABS: Glucose Point of Care 205 mg/dl (65-105)
[2021-04-25] VITALS (15 sets, daily range): BP systolic 108–170; BP diastolic 68–105; PULSE 95–119; RESP 20–22; TEMP 36.6–37.6; O2SAT 91–96
--- NOTE | 2021-04-25 01:40 | PC.NURSE ---
Pt just threw up in bed it appears to just be clear liquid. While cleaning him up I saw his urine is now red w clots. Earlier in the shift it was not like this. Dr Mortensen is aware.
--- NOTE | 2021-04-25 04:24 | PC.NURSE ---
Went in to check pt cause he sounded like he was choking he had his water pitcher and was sipping it. He appeared to be choking on the water He was upright in bed. He had an episode earlier where he vomited clear liquid on the bed. That time was not witnessed but he said he had just taken a drink. Called Dr. Mortensen for orders to make NPO until speech can evaluate and put in for a CXR.
[2021-04-25 05:25] LABS: Basophils Percent Auto 0.1 % (0.2-1.2); Hematocrit 33.5 % (42.0-52.0); Hemoglobin 10.2 g/dL (14.0-18.0); Immature Granulocyte Absolute 0.09 K/mm3 (0.00-0.031); Immature Granulocyte Percent A 0.6 % (0-0.5); Lymphocytes Absolute Auto 1.27 K/mm3 (0.9-3.2); Lymphocytes Percent Auto 7.9 % (18.3-44.2); Mean Corpuscular HGB Conc 30.4 g/dl (32-36); Mean Corpuscular Hemoglobin 27.7 pg (26-34); Mean Platelet Volume 11.5 fl (7.4-10.4); Monocytes Absolute Auto 0.8 K/mm3 (0.1-0.6); Monocytes Percent Auto 4.9 % (2.6-8.5); Neutrophils Absolute Auto 13.9 K/mm3 (1.3-6.7); Neutrophils Percent Auto 86.5 % (45.5-73.1); Platelet Count Result 157 k/mm3 (150-375); Red Blood Count 3.68 M/mm3 (4.6-6.20); Red Cell Distribution Width 14.8 % (11.5-14.5)
[2021-04-25 05:43] LABS: Alanine Aminotransferase 19 U/L (4-50); Albumin Level 3.6 g/dL (3.5-5.1); Alkaline Phosphatase 66 U/L (38-126); Anion Gap 7 mmol/L (8-16); Aspartate Amino Transferase 52 U/L (17-59); Bilirubin,Total 0.7 mg/dL (0.2-1.3); Blood Urea Nitrogen 29 mg/dL (9-20); Calcium 11.2 mg/dL (8.4-10.2); Carbon Dioxide 25 mmol/L (22-30); Chloride 110 mmol/L (98-107); Estimated CRCL calculation 28 ml/min; Estimated Glomerular Filt Rate 26; Glucose 191 mg/dL (65-110); Phosphorus 2.9 mg/dL (2.5-4.5); Potassium 4.2 mmol/L (3.4-5.0); Sodium 142 mmol/L (137-145)
--- NOTE | 2021-04-25 09:48 | P.PNIM_ITS ---
Progress Note: A&P Assessment and Plan (1) Hypercalcemia: Code(s): E83.52 - Hypercalcemia Status: Acute Assessment and Plan: Related to excess use of TUMs. * Calcium levels continue to improve - 11.2 today * Avoid TUMs. * Appreciate nephrology consultation * Continue with calcitonin * Monitor calcium levels closely (2) Atrial fibrillation with RVR: Code(s): I48.91 - Unspecified atrial fibrillation Status: Acute Assessment and Plan: With rate up to 140. Improving but still elevated in the 110s. * appreciate cardiology consultation * metoprolol tartrate has been increased to 125 mg bid * continue Eliquis * monitor on telemetry (3) Aspiration pneumonia: Code(s): J69.0 - Pneumonitis due to inhalation of food and vomit Status: Acute Assessment and Plan: Noted to have dyspnea with new onset course lung sounds yesterday evening. * CXR concerning for aspiration pneumonia with increasing opacities in the bilateral mid and lower lung zones * WBC count increased to 16.0. Low-grade fever 99.7 * begin IV Unasyn * NPO diet currently. Awaiting bedside swallow study * aspiration precautions * supportive care including bronchodilators, expectorants, incentive spirometry * maintaining adequate oxygenation on room air. Supplemental O2 as needed with goal sat 92% or above (4) Elevated troponin: Code(s): R77.8 - Other specified abnormalities of plasma proteins Status: Acute Assessment and Plan: elevated with peak up to 0.672. may be demand ischemia given atrial fibrillation with RVR. he is asymptomatic. * appreciate cardiology consultation * Echocardiogram reviewed * monitor on telemetry (5) Chronic kidney disease, stage 4 (severe): Code(s): N18.4 - Chronic kidney disease, stage 4 (severe) Status: Acute Assessment and Plan: he is established with Nephrology. Renal function is stable at this time * monitor renal function closely. renally dose medications. (6) Essential (primary) hypertension: Code(s): I10 - Essential (primary) hypertension Status: Acute Assessment and Plan: Blood pressure has been elevated above target. last BP 170/80 * metoprolol tartrate has been increased * resume home hydralazine * Holding lasix given electrolyte imbalance/CKD * Monitor BP trends (7) Type 2 diabetes mellitus with diabetic nephropathy: Code(s): E11.21 - Type 2 diabetes mellitus with diabetic nephropathy Status: Acute Assessment and Plan: blood sugars generally well controlled. * Accu-Cheks, sliding scale insulin, hypoglycemic protocol * Increase Lantus to 20 units qHS. uptitrate as needed based on blood sugar trends * check updated A1c (8) Confusion: Code(s): R41.0 - Disorientation, unspecified Status: Acute Assessment and Plan: Ongoing for 1 week. He is A&Ox4 today but exhibits confusion in conversation * Etiology unclear. Possibly due to electrolyte abnormality/hypercalcemia. Plan as above. * Head CT reviewed with no acute findings * Will repeat UA given hematuria * Check ammonia * Monitor mental status closely (9) Generalized weakness: Code(s): R53.1 - Weakness Status: Acute Assessment and Plan: also reports pt has had difficulty ambulating approximately 1 week. 2 days prior to presentation he developed need to use walker for assistance
--- NOTE | 2021-04-25 09:48 | PM.IMPN ---
Progress Note: A&P Assessment and Plan (1) Hypercalcemia: Code(s): E83.52 - Hypercalcemia Status: Acute Assessment and Plan: Related to excess use of TUMs. Calcium levels continue to improve - 11.2 today Avoid TUMs. Appreciate nephrology consultation Continue with calcitonin Monitor calcium levels closely (2) Atrial fibrillation with RVR: Code(s): I48.91 - Unspecified atrial fibrillation Status: Acute Assessment and Plan: With rate up to 140. Improving but still elevated in the 110s. appreciate cardiology consultation metoprolol tartrate has been increased to 125 mg bid continue Eliquis monitor on telemetry (3) Aspiration pneumonia: Code(s): J69.0 - Pneumonitis due to inhalation of food and vomit Status: Acute Assessment and Plan: Noted to have dyspnea with new onset course lung sounds yesterday evening. CXR concerning for aspiration pneumonia with increasing opacities in the bilateral mid and lower lung zones WBC count increased to 16.0. Low-grade fever 99.7 begin IV Unasyn NPO diet currently. Awaiting bedside swallow study aspiration precautions supportive care including bronchodilators, expectorants, incentive spirometry maintaining adequate oxygenation on room air. Supplemental O2 as needed with goal sat 92% or above (4) Elevated troponin: Code(s): R77.8 - Other specified abnormalities of plasma proteins Status: Acute Assessment and Plan: elevated with peak up to 0.672. may be demand ischemia given atrial fibrillation with RVR. he is asymptomatic. appreciate cardiology consultation Echocardiogram reviewed monitor on telemetry (5) Chronic kidney disease, stage 4 (severe): Code(s): N18.4 - Chronic kidney disease, stage 4 (severe) Status: Acute Assessment and Plan: he is established with Nephrology. Renal function is stable at this time monitor renal function closely. renally dose medications. (6) Essential (primary) hypertension: Code(s): I10 - Essential (primary) hypertension Status: Acute Assessment and Plan: Blood pressure has been elevated above target. last BP 170/80 metoprolol tartrate has been increased resume home hydralazine Holding lasix given electrolyte imbalance/CKD Monitor BP trends (7) Type 2 diabetes mellitus with diabetic nephropathy: Code(s): E11.21 - Type 2 diabetes mellitus with diabetic nephropathy Status: Acute Assessment and Plan: blood sugars generally well controlled. Accu-Cheks, sliding scale insulin, hypoglycemic protocol Increase Lantus to 20 units qHS. uptitrate as needed based on blood sugar trends check updated A1c (8) Confusion: Code(s): R41.0 - Disorientation, unspecified Status: Acute Assessment and Plan: Ongoing for 1 week. He is A&Ox4 today but exhibits confusion in conversation Etiology unclear. Possibly due to electrolyte abnormality/hypercalcemia. Plan as above. Head CT reviewed with no acute findings Will repeat UA given hematuria Check ammonia Monitor mental status closely (9) Generalized weakness: Code(s): R53.1 - Weakness Status: Acute Assessment and Plan: also reports pt has had difficulty ambulating approximately 1 week. 2 days prior to presentation he developed need to use walker for assistance. PT/OT eval appreciated Check TSH, B12, and folate (10) Hematuria: Code(s): R31.9 - Hematuria, unspecified Status: Acute Assessment and Plan: Urine visualized in maya bag clear, straw colored. Today is very dark red. Possibly trauma. Nursing reports pt not tugging at or irritating Will repeat UA Consider renal US vs CT a/p based on results of UA. Subjective Date/time seen: 04/25/21 09:48 Interval history: date of service 04/25/2021 Ted
--- NOTE | 2021-04-25 10:02 | PM.PNNEP ---
Progress Note: A&P Assessment and Plan (1) Hypercalcemia: Code(s): E83.52 - Hypercalcemia Status: Acute Assessment and Plan: The patient has hypercalcemia. This is most likely due to excess Tums ingestion in the presence of stage 4 chronic kidney disease. He had a PTH level at the same time as his calcium as an outpatient and was less than 8. He is getting Calcitonin. The calcium is down to 11 today. (2) Elevated troponin: Code(s): R77.8 - Other specified abnormalities of plasma proteins Status: Acute Assessment and Plan: The patient has atrial fibrillation with rapid ventricular rate. This caused a leak of troponin per Cardiology. (3) Chronic kidney disease, stage 4 (severe): Code(s): N18.4 - Chronic kidney disease, stage 4 (severe) Status: Acute Assessment and Plan: The patient's creatinine stable. Etiology is diabetes and hypertension. (4) Afib: Code(s): I48.91 - Unspecified atrial fibrillation Status: Acute Assessment and Plan: The patient has AFib . Cardiology saw. They increase the metoprolol. He continues on Eliquis shortness of breath: The patient has shortness of breath. He may have aspirated last night. He is also getting IV fluids and could have some element of volume overload. Oxygen saturations are fine. Will stop IV fluids and give a dose of Lasix. He is NPO now and will get investigated for aspiration. (5) Essential (primary) hypertension: Code(s): I10 - Essential (primary) hypertension Status: Acute Assessment and Plan: His blood pressure is high. he is on isorbide, amlodipine 5, metoprolol 100. will increase the amlodipine to 10 (6) Erythropoietin-resistant anemia: Code(s): D63.1 - Anemia in chronic kidney disease Status: Acute Assessment and Plan: Hemoglobin is target at 10.8. (7) Type 2 diabetes mellitus with diabetic nephropathy: Code(s): E11.21 - Type 2 diabetes mellitus with diabetic nephropathy Status: Acute Assessment and Plan: On meds per hospitalist Subjective Date/time seen: 04/25/21 10:02 Interval history: Ramin is confused today. He recognizes me and can answer questions of orientation however he is tangential and says strange things during our conversation. He looks short of breath to me. He had nausea and vomiting overnight. The nurse thinks that he aspirated last night. She is ordered a swallow eval and made him NPO. Review of Systems Cardiovascular: Cardiovascular: Reports no additional cardiovascular complaints Respiratory: Respiratory: Reports no additional respiratory complaints Gastrointestinal: Gastrointestinal: Reports no additional gastrointestinal complaints Genitourinary: Genitourinary: Reports no additional male genitourinary complaints Exam Narrative: Exam Narrative: WDWN in NAD skin no rash head ncat lungs Coarse bilaterally. Some upper airway secretions as well. cor reg no rub abd BS+ nontender and soft ext no edema. Objective Data Vital Signs Vital Signs: Vital Signs - 24 hr 04/24/21 12:00 04/24/21 14:00 04/24/21 16:00 Temperature 37.2 C 36.4 C L Pulse Rate 117 H 130 H 123 H Respiratory Rate 24 H 24 H Blood Pressure 166/75 H 147/108 H Pulse Oximetry 98 99 04/24/21 18:00 04/24/21 20:00 04/24/21 20:42 Temperature 37.3 C Pulse Rate 103 H 116 H 115 H Respiratory Rate Blood Pressure 171/80 H Pulse Oximetry 98 04/24/21 22:00 04/25/21 00:00 04/25/21 02:00 Temperature 37.6 C Pulse Rate 116 H 105 H 98 Respiratory Rate 22 H Blood Pressure 108/93 H Pulse Oximetry 94 04/25/21 04:00 04/25/21 06:00 04/25/21 08:00 Temperature 37.6 C H 37.5 C Pulse Rate 100 113 H 119 H Respiratory Rate 22 H 20 Blood Pressure 141/68 H 170/80 H Pulse Oximetry 94 94 Intake/Output Intake/Output: Intake & Output 04/22
[2021-04-25] MEDS: AMPICILLIN SULB 3 GM/NS 100 ML 3 GM/100 ML VIAL IVPB ×2 (10:23→20:48)
[2021-04-25] MEDS: CALCITONIN SALMON INJ 400 UNITS/2 ML VIAL SUB-Q ×2 (10:23→17:37)
[2021-04-25 10:44] LABS: Ammonia 19 umol/L (9-30)
[2021-04-25 10:45] LABS: Hemoglobin A1C 5.6 % (<5.7)
[2021-04-25] MEDS: FUROSEMIDE INJ 100 MG/10 ML VIAL 80 MG IV PUSH (10:45)
[2021-04-25] MEDS: APIXABAN 5 MG TABLET PO ×2 (10:45→16:48)
[2021-04-25] MEDS: amLODIPine BESYLATE 5 MG TABLET PO (10:45)
[2021-04-25] MEDS: ASPIRIN 81 MG CHEWABLE TABLET PO (10:46)
[2021-04-25] MEDS: PANTOPRAZOLE 40 MG TABLET PO (10:46)
[2021-04-25] MEDS: METOPROLOL TARTRATE 50 MG TAB 100 MG PO (10:46)
[2021-04-25] MEDS: CHOLECALCIFEROL 1,000 UNITS TABLET 1000 UNITS PO (10:46)
[2021-04-25] MEDS: ISOSORBIDE MONONITRATE 30 MG TAB.ER.24H PO (10:46)
[2021-04-25] MEDS: ROSUVASTATIN 10 MG TABLET 20 MG PO (10:47)
[2021-04-25 11:06] LABS: Add Urine Microscopic? YES; Appearance Urine Cloudy (Clear); Bilirubin Urine Negative (Negative); Blood Urine 3+ (Negative); Glucose Urine UA 3+ mg/dL (Negative); Ketones Urine Negative (Negative); Leukocyte Esterase Ur 2+ LEU/UL (Negative); Mucus Urine Rare /lpf; Nitrate Urine Negative (Negative); Protein Urine 3+ mg/dL (Negative); RBC Urine >75 /hpf (0-2); Specific Grav Ur 1.013 (1.001-1.035); Squamous Epithelial Cell Urine Few /hpf (Few); Urobilinogen Urine Negative mg/dL (<2.0); WBC Clumps Urine Present /HPF; WBC Urine >75 /hpf
[2021-04-25 11:13] LABS: Color Urine Light Red (Yellow)
--- NOTE | 2021-04-25 11:18 | PM.PNCARD ---
Progress Note: A&P Assessment and Plan (1) Atrial fibrillation with RVR: Code(s): I48.91 - Unspecified atrial fibrillation Status: Acute Assessment and Plan: 70-year-old male with multiple medical problems- hypertension, atrial fibrillation on anticoagulation ( history of multiple DC cardioversions, ?? ablation), Bradyarrhythmia status post pacemaker placement at outside hospital ( procedure note not available), diabetes mellitus on insulin, CKD, hypothyroidism on thyroxine replacement, dyslipidemia. patient admitted to the hospital with generalized weakness and hypercalcemia in the setting of excessive intake of tums which patient was taken for dyspepsia. Patient was also found to be in atrial fibrillation with RVR. currently in AFib with heart rates in 100s. - Optimize rate control, increase metoprolol tartrate dose to 125 mg p.o. b.i.d.. Patient's blood pressure remains elevated, and will be able to tolerate the higher dose. -Patient has permanent pacemaker. Patient has history of persistent atrial fibrillation with multiple cardioversions. Rate control strategy will be pursued unless rhythm control is necessary for any hemodynamic instability. - May resume anticoagulation with apixaban, unless a surgical procedure is anticipated. Continue PPI. - Patient has mild troponin elevation in the setting of AFib with RVR CKD. No active ischemic symptoms at present. Echo from 04/24/21 showed normal systolic function. No indication for ischemic evaluation at this time. He follows with a implementation manager in [place], [place]. - Continue to monitor on telemetry. (2) Hypercalcemia: Code(s): E83.52 - Hypercalcemia Status: Acute Assessment and Plan: Hydration, calcitonin. Management as per primary team and Nephrology (3) Chronic kidney disease, stage 4 (severe): Code(s): N18.4 - Chronic kidney disease, stage 4 (severe) Status: Acute Assessment and Plan: Management as per nephrology Subjective Date/time seen: 04/25/21 11:18 Interval history: Cardiology follow-up for atrial fibrillation Date of service 04/25/2021: Patient says he is feeling well today. He states that he had some issues with nausea and vomiting last night. Denies any palpitations, shortness of breath, chest pain. He remains confused today. Review of Systems Constitutional: Constitutional: Reports fatigue, Denies lethargy and Reports weakness Eyes: Eyes: Denies change in vision ENT: Denies epistaxis Cardiovascular: Cardiovascular: Denies chest pain, Denies pedal edema, Denies leg edema and Denies palpitations Respiratory: Respiratory: Reports cough Gastrointestinal: Gastrointestinal: Reports nausea and Reports vomiting Genitourinary: Genitourinary: Denies hematuria Musculoskeletal: Musculoskeletal: Reports back pain Neurologic: Reports confusion Psychiatric: Psychiatric: Reports confusion Hematologic/Lymphatic: Hematologic/Lymphatic: Denies easy bleeding and Denies easy bruising Exam Narrative: Exam Narrative: Ill-appearing older male. Alert but confused. Cooperative. Const: General: comfortable and no acute distress HENMT: Head: normal to inspection Eyes: General: appearance normal, both eyes and all related structures Neck: Neck: supple and no JVD Resp: Effort & Inspection: normal respiratory effort Auscultation: clear to auscultation bilaterally Cardio: Rate: tachycardic Rhythm: abnormal rhythm irregularly irregular GI: GI Palp: Yes Soft to palpation Auscultation: normal bowel sounds Urinary Catheter: Urinary Catheter: patent and draining and urine dark Skin: General skin exam: normal color Wounds: wounds noted Neuro: Cognition (Neuro): abnormal cognition Extrem: General: normal to inspection, no edema and no pedal edema Psych: Mental Status: mental status grossly abnormal Affect: No normal affect Objective Data Vital Signs Vital Signs: Vi
--- NOTE | 2021-04-25 15:27 | PCSTNOTE ---
Please refer to the Bedside Swallow Evaluation in the EMR. Please note, silent aspiration cannot be ruled out at bedside.
--- NOTE | 2021-04-25 15:27 | PCSTNOTE ---
Please refer to the Modified Barium Swallow Evaluation in the EMR.
[2021-04-25] MEDS: INSULIN ASPART (*BKC) 100 UNITS/ML SUB-Q (16:49)
[2021-04-25 16:50] LABS: Glucose Point of Care 176 mg/dl (65-105)
[2021-04-25 16:50] LABS: Glucose Point of Care 204 mg/dl (65-105)
[2021-04-25 17:00] LABS: Glucose Point of Care 207 mg/dl (65-105)
[2021-04-25 18:42] LABS: Creatine Kinase 146 U/L (55-170)
[2021-04-25 20:03] LABS: Glucose Point of Care 176 mg/dl (65-105)
[2021-04-25] MEDS: guaiFENesin 12 HR 600 MG TABCR PO (20:53)
[2021-04-25] MEDS: INSULIN GLARGINE (*BKC) 100 UNITS/ML 20 UNITS SUB-Q (20:57)
[2021-04-25] MEDS: hydrALAZINE HCL 50 MG TABLET PO (21:00)
[2021-04-25 23:21] LABS: Glucose Point of Care 180 mg/dl (65-105)
[2021-04-26] VITALS (15 sets, daily range): BP systolic 128–163; BP diastolic 53–81; PULSE 70–111; RESP 18–21; TEMP 35.9–37; O2SAT 94–96
[2021-04-26] MEDS: traMADol HCL (*CRX) 50 MG TABLET PO (01:40)
[2021-04-26 05:19] LABS: Hematocrit 31.5 % (42.0-52.0); Hemoglobin 9.9 g/dL (14.0-18.0); Mean Corpuscular HGB Conc 31.4 g/dl (32-36); Mean Corpuscular Volume 89.2 fl (80-100); Mean Platelet Volume 11.8 fl (7.4-10.4); Platelet Count Result 164 k/mm3 (150-375); Red Blood Count 3.53 M/mm3 (4.6-6.20); Red Cell Distribution Width 15.1 % (11.5-14.5); White Blood Count 17.6 K/mm3 (4.5-10.0)
[2021-04-26 05:33] LABS: Alanine Aminotransferase 20 U/L (4-50); Albumin Level 3.7 g/dL (3.5-5.1); Alkaline Phosphatase 59 U/L (38-126); Anion Gap 13 mmol/L (8-16); Aspartate Amino Transferase 43 U/L (17-59); Bilirubin,Total 0.8 mg/dL (0.2-1.3); Blood Urea Nitrogen 46 mg/dL (9-20); Calcium 10.9 mg/dL (8.4-10.2); Carbon Dioxide 24 mmol/L (22-30); Chloride 107 mmol/L (98-107); Estimated CRCL calculation 25 ml/min; Estimated Glomerular Filt Rate 23; Glucose 181 mg/dL (65-110); Magnesium 2.2 mg/dL (1.6-2.3); Phosphorus 3.2 mg/dL (2.5-4.5); Potassium 3.9 mmol/L (3.4-5.0); Sodium 144 mmol/L (137-145)
[2021-04-26] MEDS: hydrALAZINE HCL 50 MG TABLET PO ×2 (05:57→16:27)
[2021-04-26] MEDS: LEVOTHYROXINE SODIUM 100 MCG TABLET PO (05:57)
[2021-04-26] MEDS: LEVOTHYROXINE SODIUM 75 MCG TABLET PO (05:57)
[2021-04-26 06:15] LABS: Thyroid Stimulating Hormone Reflex 0.134 uIU/mL (0.465-4.68)
--- NOTE | 2021-04-26 08:25 | PM.PNNEP ---
Progress Note: A&P Assessment and Plan (1) Hypercalcemia: Code(s): E83.52 - Hypercalcemia Status: Acute Assessment and Plan: The patient has hypercalcemia. This is most likely due to excess Tums ingestion in the presence of stage 4 chronic kidney disease. however, it is taking a long time for his calcium to improve considering it was just due to Tums ingestion. Will check a bone scan and for paraprotein issues. He had a PTH level at the same time as his calcium as an outpatient and was less than 8. He is getting Calcitonin. Two more doses to go. The calcium is below 11 today. (2) Elevated troponin: Code(s): R77.8 - Other specified abnormalities of plasma proteins Status: Acute Assessment and Plan: The patient has atrial fibrillation with rapid ventricular rate. This caused a leak of troponin per Cardiology. (3) Chronic kidney disease, stage 4 (severe): Code(s): N18.4 - Chronic kidney disease, stage 4 (severe) Status: Acute Assessment and Plan: The patient's creatinine stable. Etiology is diabetes and hypertension. (4) Afib: Code(s): I48.91 - Unspecified atrial fibrillation Status: Acute Assessment and Plan: The patient has AFib . Cardiology Is on the case. He continues on Eliquis shortness of breath: breathing is better today. (5) Essential (primary) hypertension: Code(s): I10 - Essential (primary) hypertension Status: Acute Assessment and Plan: His blood pressure is high. he is on isorbide, amlodipine 5, metoprolol 100. will increase the amlodipine to 10 (6) Erythropoietin-resistant anemia: Code(s): D63.1 - Anemia in chronic kidney disease Status: Acute Assessment and Plan: Hemoglobin is target at 10.8. (7) Type 2 diabetes mellitus with diabetic nephropathy: Code(s): E11.21 - Type 2 diabetes mellitus with diabetic nephropathy Status: Acute Assessment and Plan: On meds per hospitalist Subjective Date/time seen: 04/26/21 08:25 Interval history: Ramin is confused still. I went to the baseball game last night breathing is better. No more nausea or vomiting. Exam Narrative: Exam Narrative: WDWN in NAD skin no rash head ncat lungs Less course cor reg no rub or gallop abd BS+ nontender and soft ext no edema. Objective Data Vital Signs Vital Signs: Vital Signs - 24 hr 04/25/21 10:00 04/25/21 10:46 04/25/21 12:00 Temperature 36.6 C Pulse Rate 110 H 112 H 110 H Respiratory Rate 20 Blood Pressure 148/76 H Pulse Oximetry 95 04/25/21 13:51 04/25/21 14:00 04/25/21 16:00 Temperature 36.8 C Pulse Rate 112 H 102 H Respiratory Rate 22 H Blood Pressure 145/72 H Pulse Oximetry 94 91 04/25/21 18:00 04/25/21 20:00 04/25/21 20:53 Temperature 37.0 C Pulse Rate 112 H 101 H 102 H Respiratory Rate 20 Blood Pressure 134/105 H Pulse Oximetry 95 04/25/21 22:00 04/26/21 00:00 04/26/21 02:00 Temperature 36.9 C Pulse Rate 111 H 109 H 111 H Respiratory Rate 18 Blood Pressure 137/74 Pulse Oximetry 94 04/26/21 04:00 04/26/21 05:50 Temperature 37.0 C Pulse Rate 98 100 Respiratory Rate 20 Blood Pressure 144/81 H Pulse Oximetry 94 Intake/Output Intake/Output: Intake & Output 04/23/21 04/24/21 04/25/21 04/26/21 23:59 23:59 23:59 23:59 Intake Total 3000 1198 0 Output Total 2150 2250 550 Balance 850 -1052 -550 Meds/Results Medications: Active Medications Generic Name Dose Route Start Last Admin Trade Name Freq PRN Reason Stop Dose Admin Acetaminophen 650 mg 04/25/21 10:07 Acetaminophen 325 Mg Tablet PO Q4H PRN Pain 1-3, Fever Acetaminophen/Codeine Phosphate 1 tab 04/24/21 16:32 04/24/21 20:41 Acetaminophen/Codeine (*Crx) 300/30 Mg Tablet PO 1 tab Q4H PRN Administration Pain Rated 4-6 Albuterol 2.5 mg
[2021-04-26] MEDS: ASPIRIN 81 MG CHEWABLE TABLET PO (08:27)
[2021-04-26] MEDS: APIXABAN 5 MG TABLET PO (08:27)
[2021-04-26] MEDS: ROSUVASTATIN 10 MG TABLET 20 MG PO (08:27)
[2021-04-26] MEDS: guaiFENesin 12 HR 600 MG TABCR PO (08:27)
[2021-04-26] MEDS: PANTOPRAZOLE 40 MG TABLET PO (08:27)
[2021-04-26] MEDS: ISOSORBIDE MONONITRATE 30 MG TAB.ER.24H PO (08:27)
[2021-04-26] MEDS: CHOLECALCIFEROL 1,000 UNITS TABLET 1000 UNITS PO (08:27)
[2021-04-26] MEDS: amLODIPine BESYLATE 5 MG TABLET PO (08:27)
[2021-04-26] MEDS: CALCITONIN SALMON INJ 400 UNITS/2 ML VIAL SUB-Q ×2 (08:28→16:28)
[2021-04-26] MEDS: AMPICILLIN SULB 3 GM/NS 100 ML 3 GM/100 ML VIAL IVPB ×2 (08:28→23:20)
--- NOTE | 2021-04-26 09:59 | PM.PNCARD ---
Progress Note: A&P Assessment and Plan (1) Atrial fibrillation with RVR: Code(s): I48.91 - Unspecified atrial fibrillation Status: Acute Assessment and Plan: 70-year-old male with multiple medical problems- hypertension, atrial fibrillation on anticoagulation ( history of multiple DC cardioversions, ?? ablation), Bradyarrhythmia status post pacemaker placement at outside hospital ( procedure note not available), diabetes mellitus on insulin, CKD, hypothyroidism on thyroxine replacement, dyslipidemia. patient admitted to the hospital with generalized weakness and hypercalcemia in the setting of excessive intake of tums which patient was taken for dyspepsia. Patient was also found to be in atrial fibrillation with RVR. currently in AFib with heart rates 90's-low 100's. - Optimize rate control, metoprolol tartrate dose 125 mg p.o. b.i.d.. Patient's blood pressure remains elevated, would tolerate increase if necessary. Continue current dose for now. -Patient has permanent pacemaker. Patient has history of persistent atrial fibrillation with multiple cardioversions. Rate control strategy will be pursued unless rhythm control is necessary for any hemodynamic instability. - May resume anticoagulation with apixaban, unless a surgical procedure is anticipated. Continue PPI. - Patient has mild troponin elevation in the setting of AFib with RVR CKD. No active ischemic symptoms at present. Echo from 04/24/21 showed normal systolic function. No indication for ischemic evaluation at this time. He follows with a desizing machine operator in [place], [place]. - Continue to monitor on telemetry. (2) Hypercalcemia: Code(s): E83.52 - Hypercalcemia Status: Acute Assessment and Plan: Hydration, calcitonin. Management as per primary team and Nephrology (3) Chronic kidney disease, stage 4 (severe): Code(s): N18.4 - Chronic kidney disease, stage 4 (severe) Status: Acute Assessment and Plan: Management as per nephrology Subjective Date/time seen: 04/26/21 09:59 Interval history: Cardiology follow-up for atrial fibrillation Date of service 04/25/2021: Patient says he is feeling well today. He states that he had some issues with nausea and vomiting last night. Denies any palpitations, shortness of breath, chest pain. He remains confused today. Date of service 04/26/2021: He is more confused today. Denies palpitations, shortness of breath, chest pain. Remains in atrial fibrillation with a rate in the 90s to low 100s. Okay to downgrade to med/tele. Review of Systems Constitutional: Constitutional: Reports fatigue, Denies lethargy and Reports weakness Eyes: Eyes: Denies change in vision ENT: Denies epistaxis Cardiovascular: Cardiovascular: Denies chest pain, Denies pedal edema, Denies leg edema and Denies palpitations Respiratory: Respiratory: Reports cough Gastrointestinal: Gastrointestinal: Reports nausea and Reports vomiting Genitourinary: Genitourinary: Denies hematuria Musculoskeletal: Musculoskeletal: Reports back pain Neurologic: Reports confusion and Reports weakness Psychiatric: Psychiatric: Reports confusion Endocrine: Endocrine: Reports fatigue and Denies palpitations Hematologic/Lymphatic: Hematologic/Lymphatic: Denies easy bleeding and Denies easy bruising Exam Narrative: Exam Narrative: Ill-appearing older male. Alert but confused. Cooperative. Const: General: comfortable, no acute distress and confusion Orientation/consciousness: confusion HENMT: Head: normal to inspection Eyes: General: appearance normal, both eyes and all related structures Neck: Neck: supple and no JVD Resp: Effort & Inspection: normal respiratory effort Auscultation: clear to auscultation bilaterally Cardio: Rate: tachycardic Rhythm: abnormal rhythm irregularly irregular GI: Auscultation: normal bowel sounds Urinary Catheter: Urinary Catheter: patent and
[2021-04-26 10:40] LABS: Free T4 Free Thyroxine Reflex 1.76 ng/dL (0.78-2.19)
--- NOTE | 2021-04-26 11:01 | P.PNIM_ITS ---
Progress Note: A&P Assessment and Plan (1) Hypercalcemia: Code(s): E83.52 - Hypercalcemia Status: Acute Assessment and Plan: Related to excess use of TUMs. * Calcium levels continue to improve - 10.9 today * Avoid TUMs. * Appreciate nephrology consultation * Continue with calcitonin * Monitor calcium levels closely * Bone scan being performed today per nephrology (2) Atrial fibrillation with RVR: Code(s): I48.91 - Unspecified atrial fibrillation Status: Acute Assessment and Plan: With rate up to 140. Improved in the 90s-100 today. * appreciate cardiology consultation * Continue metoprolol tartrate at increased dose 125 mg bid * continue Eliquis * monitor on telemetry (3) Aspiration pneumonia: Code(s): J69.0 - Pneumonitis due to inhalation of food and vomit Status: Acute Assessment and Plan: Noted to have dyspnea with new onset course lung sounds 04/24. * CXR concerning for aspiration pneumonia with increasing opacities in the bilateral mid and lower lung zones * WBC count increased to 17.6. One temp slightly elevated at 99.7 with no additional fevers * Continue IV Unasyn. Add IV Vancomycin * Evidence of aspiration on MBS. Continue NPO diet per ST recs. Will begin IV fluids. * Continue speech therapy with plans to repeat MBS based on progression. Hopefully mental status will improve which should help his swallowing. * aspiration precautions * supportive care including bronchodilators, expectorants, incentive spirometry * maintaining adequate oxygenation on room air. Supplemental O2 as needed with goal sat 92% or above (4) Elevated troponin: Code(s): R77.8 - Other specified abnormalities of plasma proteins Status: Acute Assessment and Plan: Elevated with peak up to 0.672. Likely demand ischemia given atrial fibri llation with RVR. he is asymptomatic. * appreciate cardiology consultation * Echocardiogram reviewed (5) Chronic kidney disease, stage 4 (severe): Code(s): N18.4 - Chronic kidney disease, stage 4 (severe) Status: Acute Assessment and Plan: He is established with Nephrology. Renal function is consistent with his baseline * monitor renal function closely. renally dose medications. (6) Essential (primary) hypertension: Code(s): I10 - Essential (primary) hypertension Status: Acute Assessment and Plan: Blood pressure has been elevated above target; improving last BP 156/63 * Continue metoprolol tartrate at increased dose * continue home hydralazine * Holding lasix * Monitor BP trends (7) Type 2 diabetes mellitus with diabetic nephropathy: Code(s): E11.21 - Type 2 diabetes mellitus with diabetic nephropathy Status: Acute Assessment and Plan: blood sugars generally well controlled. A1c is 5.6 * Accu-Cheks, sliding scale insulin, hypoglycemic protocol * Increase Lantus to 25 units qHS. uptitrate as needed based on blood sugar trends (8) Confusion: Code(s): R41.0 - Disorientation, unspecified Status: Acute Assessment and Plan: Ongoing for 1 week. He is A&Ox4 but exhibits confusion in conversation and now seems to be having auditory and visual hallucinations * Etiology unclear. Possibly due to electrolyte abnormality/hypercalcemia. Plan as above. * May be due to acute infection - aspiration pneumonia vs UTI * Head CT reviewed with no acute findings * Ammonia,
--- NOTE | 2021-04-26 11:01 | PM.IMPN ---
Progress Note: A&P Assessment and Plan (1) Hypercalcemia: Code(s): E83.52 - Hypercalcemia Status: Acute Assessment and Plan: Related to excess use of TUMs. Calcium levels continue to improve - 10.9 today Avoid TUMs. Appreciate nephrology consultation Continue with calcitonin Monitor calcium levels closely Bone scan being performed today per nephrology (2) Atrial fibrillation with RVR: Code(s): I48.91 - Unspecified atrial fibrillation Status: Acute Assessment and Plan: With rate up to 140. Improved in the 90s-100 today. appreciate cardiology consultation Continue metoprolol tartrate at increased dose 125 mg bid continue Eliquis monitor on telemetry (3) Aspiration pneumonia: Code(s): J69.0 - Pneumonitis due to inhalation of food and vomit Status: Acute Assessment and Plan: Noted to have dyspnea with new onset course lung sounds 04/24. CXR concerning for aspiration pneumonia with increasing opacities in the bilateral mid and lower lung zones WBC count increased to 17.6. One temp slightly elevated at 99.7 with no additional fevers Continue IV Unasyn. Add IV Vancomycin Evidence of aspiration on MBS. Continue NPO diet per ST recs. Will begin IV fluids. Continue speech therapy with plans to repeat MBS based on progression. Hopefully mental status will improve which should help his swallowing. aspiration precautions supportive care including bronchodilators, expectorants, incentive spirometry maintaining adequate oxygenation on room air. Supplemental O2 as needed with goal sat 92% or above (4) Elevated troponin: Code(s): R77.8 - Other specified abnormalities of plasma proteins Status: Acute Assessment and Plan: Elevated with peak up to 0.672. Likely demand ischemia given atrial fibrillation with RVR. he is asymptomatic. appreciate cardiology consultation Echocardiogram reviewed (5) Chronic kidney disease, stage 4 (severe): Code(s): N18.4 - Chronic kidney disease, stage 4 (severe) Status: Acute Assessment and Plan: He is established with Nephrology. Renal function is consistent with his baseline monitor renal function closely. renally dose medications. (6) Essential (primary) hypertension: Code(s): I10 - Essential (primary) hypertension Status: Acute Assessment and Plan: Blood pressure has been elevated above target; improving last BP 156/63 Continue metoprolol tartrate at increased dose continue home hydralazine Holding lasix Monitor BP trends (7) Type 2 diabetes mellitus with diabetic nephropathy: Code(s): E11.21 - Type 2 diabetes mellitus with diabetic nephropathy Status: Acute Assessment and Plan: blood sugars generally well controlled. A1c is 5.6 Accu-Cheks, sliding scale insulin, hypoglycemic protocol Increase Lantus to 25 units qHS. uptitrate as needed based on blood sugar trends (8) Confusion: Code(s): R41.0 - Disorientation, unspecified Status: Acute Assessment and Plan: Ongoing for 1 week. He is A&Ox4 but exhibits confusion in conversation and now seems to be having auditory and visual hallucinations Etiology unclear. Possibly due to electrolyte abnormality/hypercalcemia. Plan as above. May be due to acute infection - aspiration pneumonia vs UTI Head CT reviewed with no acute findings Ammonia, B12, and folate wnl. TSH low with normal T4 Consult to neurology. Input is appreciated Pt family denies alcohol use in patient May be due to withdrawal from benzodiazepines. Will resume home alprazolam. Monitor mental status closely (9) Generalized weakness: Code(s): R53.1 - Weakness Status: Acute Assessment and Plan: reports pt has had difficulty ambulating approximately 1 week. 2 days prior to presentation he developed need to use walker for
[2021-04-26 11:40] LABS: INR 1.9; Prothrombin Time 21.4 Seconds (11.1-14.7)
--- NOTE | 2021-04-26 11:43 | PCNFU ---
Nutrition Follow-Up Complete: Nutrition Diagnosis: Involuntary weight loss related to multiple medical issues, including indigestion, as evidenced by documented 10% weight loss x 7 months without trying. Nutrition Goal: Patient to consume 50% of meals/supplements or greater. Goal not met. Patient NPO with FIELD SUPPORT SPECIALIST recommendation for non-oral feedings. Patient more confused today, per RN. If no improvement in the next few days, will need to consider nutrition support. Last recorded weight is 98.2 kg which is stable with last review. Bowel Motility: Last documented BM on 04/25/21. Labs Reviewed: WBC (17.6), RBC (3.53), Hgb (9.9), Hct (31.5), Glu (181), BUN (46), Cr (2.8), Alb (3.7), Ca (10.9) Meds Noted: Norvasc, Unasyn, Calcitonin, Apresoline, Lantus, Imdur, Synthroid, Metoprolol, Protonix, Crestor, Vancomycin, Vitamin D Additional Notes: Ionized calcium pending. No documented skin breakdown. Will continue to monitor with same goal. Nutrition Monitoring and Evaluation: Follow up every 3 days.
[2021-04-26 12:15] LABS: Glucose Point of Care 237 mg/dl (65-105)
[2021-04-26 12:18] LABS: Total Triiodothyronine (T3) 0.56 NG/ML (0.97-1.69)
[2021-04-26] MEDS: INSULIN ASPART (*BKC) 100 UNITS/ML SUB-Q (12:24)
[2021-04-26] MEDS: SODIUM CHLORIDE 0.9% IV 1,000 ML 100 ML IV CONT (13:07)
--- NOTE | 2021-04-26 14:31 | PCPTNOTE ---
Attempted to see patient x3 this date, however patient unavailable during AM due to being with OT and patient out of room for testing. Attempted to see patient in PM, however Per RN, hold off for now due to medication. Will continue per POC. Candice Smith, SCOOPING MACHINE TENDER
[2021-04-26] MEDS: TIZANIDINE HCL 4 MG TABLET PO (16:28)
[2021-04-26 21:12] LABS: Glucose Point of Care 191 mg/dl (65-105)
[2021-04-26 22:02] LABS: Ionized Calcium 7.1 mg/dL (4.8-5.6)
[2021-04-26] MEDS: INSULIN GLARGINE (*BKC) 100 UNITS/ML 25 UNITS SUB-Q (22:51)
--- NOTE | 2021-04-26 23:36 | PC.NURSE ---
Son, Ernst Dias, notified of change in condition, worsening confusion. Questions and concerns addressed.
[2021-04-27] VITALS (9 sets, daily range): BP systolic 137–158; BP diastolic 56–62; PULSE 54–110; RESP 16–22; TEMP 36.3–36.4; O2SAT 97
[2021-04-27 00:36] LABS: Glucose Point of Care 175 mg/dl (65-105)
[2021-04-27 01:11] LABS: Glucose Point of Care 189 mg/dl (65-105)
[2021-04-27] MEDS: SODIUM CHLORIDE 0.9% IV 1,000 ML 100 ML IV CONT ×3 (02:08→21:55)
[2021-04-27 05:18] LABS: Hematocrit 30.1 % (42.0-52.0); Hemoglobin 9.5 g/dL (14.0-18.0); Mean Corpuscular HGB Conc 31.6 g/dl (32-36); Mean Corpuscular Hemoglobin 28.4 pg (26-34); Mean Corpuscular Volume 90.1 fl (80-100); Mean Platelet Volume 11.6 fl (7.4-10.4); Platelet Count Result 156 k/mm3 (150-375); Red Blood Count 3.34 M/mm3 (4.6-6.20); Red Cell Distribution Width 15.1 % (11.5-14.5); White Blood Count 13.5 K/mm3 (4.5-10.0)
[2021-04-27 05:42] LABS: Albumin Level 3.5 g/dL (3.5-5.1); Anion Gap 13 mmol/L (8-16); Blood Urea Nitrogen 65 mg/dL (9-20); Calcium 9.8 mg/dL (8.4-10.2); Carbon Dioxide 21 mmol/L (22-30); Chloride 113 mmol/L (98-107); Estimated CRCL calculation 28 ml/min; Estimated Glomerular Filt Rate 26; Glucose 179 mg/dL (65-110); Phosphorus 3.5 mg/dL (2.5-4.5); Potassium 3.6 mmol/L (3.4-5.0); Sodium 147 mmol/L (137-145)
[2021-04-27] MEDS: AMPICILLIN SULB 3 GM/NS 100 ML 3 GM/100 ML VIAL IVPB ×2 (08:27→21:53)
[2021-04-27] MEDS: amLODIPine BESYLATE 5 MG TABLET PO (10:46)
[2021-04-27] MEDS: CHOLECALCIFEROL 1,000 UNITS TABLET 1000 UNITS PO (10:46)
[2021-04-27] MEDS: ASPIRIN 81 MG CHEWABLE TABLET PO (10:47)
--- NOTE | 2021-04-27 11:12 | PM.PNCARD ---
Progress Note: A&P Assessment and Plan (1) Atrial fibrillation with RVR: Code(s): I48.91 - Unspecified atrial fibrillation Status: Acute Assessment and Plan: 70-year-old male with multiple medical problems- hypertension, atrial fibrillation on anticoagulation ( history of multiple DC cardioversions, ?? ablation), Bradyarrhythmia status post pacemaker placement at outside hospital ( procedure note not available), diabetes mellitus on insulin, CKD, hypothyroidism on thyroxine replacement, dyslipidemia. patient admitted to the hospital with generalized weakness and hypercalcemia in the setting of excessive intake of tums which patient was taken for dyspepsia. Patient was also found to be in atrial fibrillation with RVR. currently in AFib with heart rates 90's-low 100's. - Optimize rate control, increase metoprolol tartrate dose 150 mg p.o. b.i.d.. Patient's blood pressure elevated - will tolerate BB increase. -Patient has permanent pacemaker. Patient has history of persistent atrial fibrillation with multiple cardioversions. Rate control strategy will be pursued unless rhythm control is necessary for any hemodynamic instability. - May resume anticoagulation with apixaban, unless a surgical procedure is anticipated. Continue PPI. - Patient has mild troponin elevation in the setting of AFib with RVR CKD. No active ischemic symptoms at present. Echo from 04/24/21 showed normal systolic function. No indication for ischemic evaluation at this time. He follows with a sorter pricer in [place], [place]. - Continue to monitor on telemetry. (2) Hypercalcemia: Code(s): E83.52 - Hypercalcemia Status: Acute Assessment and Plan: Hydration, calcitonin. Management as per primary team and Nephrology (3) Chronic kidney disease, stage 4 (severe): Code(s): N18.4 - Chronic kidney disease, stage 4 (severe) Status: Acute Assessment and Plan: Management as per nephrology Subjective Date/time seen: 04/27/21 11:12 Interval history: Cardiology follow-up for atrial fibrillation Date of service 04/25/2021: Patient says he is feeling well today. He states that he had some issues with nausea and vomiting last night. Denies any palpitations, shortness of breath, chest pain. He remains confused today. Date of service 04/26/2021: He is more confused today. Denies palpitations, shortness of breath, chest pain. Remains in atrial fibrillation with a rate in the 90s to low 100s. Okay to downgrade to med/tele. Date of service 04/27/2021: Feeling better today. Frustrated that he's not able to have any water. No palpitations, shortness of breath. Afib rate in the low 100's mostly. Less confused today. Review of Systems Constitutional: Constitutional: Reports fatigue, Denies lethargy and Reports weakness Eyes: Eyes: Denies change in vision ENT: Denies epistaxis Cardiovascular: Cardiovascular: Denies chest pain, Denies pedal edema, Denies leg edema and Denies palpitations Respiratory: Respiratory: Reports cough Gastrointestinal: Gastrointestinal: Reports nausea and Reports vomiting Genitourinary: Genitourinary: Denies hematuria Musculoskeletal: Musculoskeletal: Reports back pain Neurologic: Reports confusion and Reports weakness Psychiatric: Psychiatric: Reports confusion Endocrine: Endocrine: Reports fatigue and Denies palpitations Hematologic/Lymphatic: Hematologic/Lymphatic: Denies easy bleeding and Denies easy bruising Exam Narrative: Exam Narrative: Ill-appearing older male. Alert but confused. Cooperative. Const: General: comfortable, no acute distress and confusion Orientation/consciousness: confusion HENMT: Head: normal to inspection Eyes: General: appearance normal, both eyes and all related structures Neck: Neck: supple and no JVD Resp: Effort & Inspection: normal respiratory effort Auscultation: clear to auscultation bilaterally Cardio:
--- NOTE | 2021-04-27 11:19 | WPDNEURCNPN ---
Assessment and Plan Additional Plan generalized weakness most likely metabolic in nature will obtain the serum aldolase and CPk Consult date: 04/27/21 Time Seen: 11:00 HPI: Ramin Colon is a 70 year old male admitted to the hospital with the ongoing history of 1. Diabetes mellitus insulin-dependent 2. GERD 3. Chronic kidney disease 4. Hypertension 5. Chronic anticoagulation therapy 6. Intracardiac device in situ he was reportedly found to have hypercalcemia on routine workup along with the epigastric discomfort for which she has been taking Tums 6 to 7 tablets daily and documented calcium of 13 with creatinine of 3 , troponin 0.67 to initial examination was consistent with inability to ambulate, further investigation documented abnormal chest x-ray with cardiomegaly and pulmonary vascular congestion, negative CT scan of the head, bone scan consistent with atypical focus of increased uptake at the right greater trochanter and the lower cervical spine and multiple lumbar vertebral bodies and chest x-ray with cardiomegaly abnormal UA abnormal routine lab 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, rate of 40's since ablation, HR 88 today Chronic kidney disease, stage 4 (severe) Constipation End stage renal disease being monitored per Dr Lei; no dialysis at present time Erythropoietin-resistant anemia Essential (primary) hypertension Polyp, 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 Family History Family History Father Heart disease Social History Social History Smoking packs per day: 1 Smoking cigarettes per day: 20.0 Years smoked: 20 Smoking pack-years: 20.00 Smoking status: Former smoker Alcohol intake: current Substance use: current Substance use type: does not use Gender identity (if verbalized by the patient): Male Spiritual care concerns: No Meds Home Medications and Allergies Home Medications Medication Instructions Recorded Confirmed Type apixaban 5 mg tablet 5 mg PO BID 03/27/20 04/24/21 History metoclopramide HCl 5 mg tablet 5 mg PO .prn PRN tablet 03/27/20 04/24/21 History ondansetron HCl 4 mg tablet 4 mg PO Q8H PRN 03/27/20 04/24/21 History rosuvastatin 20 mg tablet 20 mg PO DAILY 03/27/20 04/24/21 History cholecalciferol (vitamin D3) 1,000 unit PO DAILY 04/05/20 04/24/21 History [Vitamin D3] ferrous sulfate 27 mg PO TID 04/05/20 04/24/21 History hydralazine 75 mg PO TID 04/05/20 04/26/21 History insulin aspart U-100 [Novolog 1 sliding scale dose SUBCUT 04/05/20 04/24/21 History U-100 Insulin aspart] USEASDIRECTD levothyroxine 175 mcg PO DAILY 04/05/20 04/24/21 History tizanidine 4 mg PO QID 04/05/20 04/24/21 History polyethylene glycol 3350 17 17 g PO DAILY PRN #510 g 10/03/20 04/24/21 Rx gram/dose oral powder alprazolam 1 mg PO HS 04/24/21 04/24/21 History docusate sodium [Colace] 100 mg PO TID 04/24/21 04/24/21 History insulin degludec [Tresiba 40 unit SUBCUT HS 04/24/21 04/24/21 History FlexTouch U-100] pantoprazole 40 mg PO DAILY 04/24/21 04/24/21 History acetaminophen-codeine 1 - 2 tablet PO Q4-6H PRN 04/26/21 04/26/21 History furosemide 80 mg PO DAILY 04/26/21 04/26/21 History Allergies Allergy/AdvReac Type Severity Reaction Status Date / Time chlordiazepoxide Allergy Mild Confusion Verified 10/03/20 10:13 clarithromycin Allergy Mild Unknown Verified 10/03/20 10:13 Vital Signs Vital Signs - 24 hr 04/26/21 12:00 04/26/21 12:26 04/26/21 14:00 Temperature 36.4 C Pulse Rate 88 99 82 Respiratory Rate 20 Blood Pressure 163/79 H Pulse Oximetry 94 94 04/26/21 1
--- NOTE | 2021-04-27 11:35 | PM.PNNEP ---
Progress Note: A&P Assessment and Plan (1) Hypercalcemia: Code(s): E83.52 - Hypercalcemia Status: Acute Assessment and Plan: The patient has hypercalcemia. This is most likely due to excess Tums ingestion in the presence of stage 4 chronic kidney disease. his calcium is normal now. (2) Elevated troponin: Code(s): R77.8 - Other specified abnormalities of plasma proteins Status: Acute Assessment and Plan: The patient has atrial fibrillation with rapid ventricular rate. This caused a leak of troponin per Cardiology. He looks more euvolemic. Appreciate Cardiology input (3) Chronic kidney disease, stage 4 (severe): Code(s): N18.4 - Chronic kidney disease, stage 4 (severe) Status: Acute Assessment and Plan: The patient's creatinine stable. Etiology is diabetes and hypertension. (4) Afib: Code(s): I48.91 - Unspecified atrial fibrillation Status: Acute Assessment and Plan: The patient has AFib . Cardiology Is on the case. He continues on Eliquis shortness of breath: breathing is better today. he clearly aspirates. Now NPO and getting swallow evaluation. Repeat head CT to look at the reason. Neurology consult. Back on IV fluids since he is NPO. (5) Essential (primary) hypertension: Code(s): I10 - Essential (primary) hypertension Status: Acute Assessment and Plan: His blood pressure is high. he is on isorbide, amlodipine 5, metoprolol 100. Will keep amlodipine at 5 for permissive hypertension since he may have had a stroke. 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 (7) Type 2 diabetes mellitus with diabetic nephropathy: Code(s): E11.21 - Type 2 diabetes mellitus with diabetic nephropathy Status: Acute Assessment and Plan: On meds per hospitalist Subjective Date/time seen: 04/27/21 11:35 Interval history: patient seems much more together today. No delusions that I can see this morning. breathing is better. He still chokes any time he puts any liquids in his mouth Exam Narrative: Exam Narrative: WDWN in NAD skin no rash head ncat lungs Less course cor reg no rub or gallop abd BS+ nontender and soft ext no edema or cyanosis Objective Data Vital Signs Vital Signs: Vital Signs - 24 hr 04/26/21 12:00 04/26/21 12:26 04/26/21 14:00 Temperature 36.4 C Pulse Rate 88 99 82 Respiratory Rate 20 Blood Pressure 163/79 H Pulse Oximetry 94 94 04/26/21 16:00 04/26/21 17:48 04/26/21 20:00 Temperature 35.9 C L Pulse Rate 102 H 85 77 Respiratory Rate 21 H Blood Pressure 138/69 Pulse Oximetry 96 04/26/21 22:55 04/27/21 00:00 04/27/21 04:00 Temperature 36.5 C Pulse Rate 95 93 103 H Respiratory Rate 20 Blood Pressure 128/53 L Pulse Oximetry 95 04/27/21 08:00 04/27/21 10:46 Temperature 36.4 C L Pulse Rate 54 L 104 H Respiratory Rate 22 H Blood Pressure 158/62 H Pulse Oximetry 97 Intake/Output Intake/Output: Intake & Output 04/24/21 04/25/21 04/26/21 04/27/21 23:59 23:59 23:59 23:59 Intake Total 3000 1198 909.4 900.6 Output Total 2150 2250 1000 1100 Balance 850 -1052 -90.6 -199.4 Meds/Results Medications: Active Medications Generic Name Dose Route Start Last Admin Trade Name Freq PRN Reason Stop Dose Admin Acetaminophen 650 mg 04/25/21 10:07 Acetaminophen 325 Mg Tablet PO Q4H PRN Pain 1-3, Fever Hydrocodone Bitart/Acetaminophen 1 tab 04/26/21 16:50 Hydrocodone/Acetaminophen (*Crx) 5-325 Mg Tablet PO Q4H PRN Pain Rated 4-6 Albuterol 2.5 mg 04/25/21 09:53 Albuterol Sulfate Neb 2.5 Mg/0.5 Ml Inh INHALATION Q6HRT PRN Shortness Of Breath Alprazolam 1 mg 04/26/21 21:00 04/26/21 23:16 Al
--- NOTE | 2021-04-27 11:45 | P.PNIM_ITS ---
Progress Note: A&P Assessment and Plan (1) Hypercalcemia: Code(s): E83.52 - Hypercalcemia Status: Acute Assessment and Plan: Related to excess use of TUMs in the setting of CKD. * Calcium levels have normalized * Avoid TUMs. * Appreciate nephrology consultation * Calcitonin has been discontinued * Monitor calcium levels closely * Bone scan performed yesterday with abnormalities of the hip and lumbar spine; being followed up with X-rays today (2) Atrial fibrillation with RVR: Code(s): I48.91 - Unspecified atrial fibrillation Status: Acute Assessment and Plan: Improved. Rate is in the 80-90s today * appreciate cardiology consultation * Continue metoprolol tartrate at increased dose 150 mg bid * Eliquis held due to hematuria. Will resume * monitor on telemetry (3) Aspiration pneumonia: Code(s): J69.0 - Pneumonitis due to inhalation of food and vomit Status: Acute Assessment and Plan: Noted to have dyspnea with new onset course lung sounds 04/24. * CXR concerning for aspiration pneumonia with increasing opacities in the bilateral mid and lower lung zones * WBC count increased to 17.6; has improved to 13 today * Continue IV Unasyn and Vancomycin * Evidence of aspiration on MBS. ST evaluated pt and recommended NPO diet. Will plan to repeat swallow study today as he is more alert. * aspiration precautions * supportive care including bronchodilators and incentive spirometry * maintaining adequate oxygenation on room air. Supplemental O2 as needed with goal sat 92% or above (4) Elevated troponin: Code(s): R77.8 - Other specified abnormalities of plasma proteins Status: Acute Assessment and Plan: Elevated with peak up to 0.672. Likely demand ischemia given atrial fibrillation with RVR. he is asymptomatic. * appreciate cardiology consultation * Echocardiogram reviewed (5) Chronic kidney disease, stage 4 (severe): Code(s): N18.4 - Chronic kidney disease, stage 4 (severe) Status: Acute Assessment and Plan: He is established with Nephrology. Renal function is consistent with his baseline * monitor renal function closely. renally dose medications. * did have elevation in BUN today which is likely due to diuresis (6) Essential (primary) hypertension: Code(s): I10 - Essential (primary) hypertension Status: Acute Assessment and Plan: Blood pressure has been elevated above target; improving last BP 158/62 * Continue metoprolol tartrate at increased dose * continue home hydralazine * Holding lasix * Monitor BP trends (7) Type 2 diabetes mellitus with diabetic nephropathy: Code(s): E11.21 - Type 2 diabetes mellitus with diabetic nephropathy Status: Acute Assessment and Plan: blood sugars generally well controlled. A1c is 5.6 * Accu-Cheks, sliding scale insulin, hypoglycemic protocol * Increase Lantus to 30 units qHS. uptitrate as needed based on blood sugar trends (8) Confusion: Code(s): R41.0 - Disorientation, unspecified Status: Acute Assessment and Plan: Ongoing for 1 week. He is A&Ox4 but exhibits confusion in conversation. Experienced auditory and visual hallucinations yesterday. Seems more alert today * Etiology unclear. Possibly due to electrolyte abnormality/hypercalcemia. Plan as above. * May be due to acute infection - continue IV antibiotics * Head CT reviewed with no acute findin
--- NOTE | 2021-04-27 11:45 | PM.IMPN ---
Progress Note: A&P Assessment and Plan (1) Hypercalcemia: Code(s): E83.52 - Hypercalcemia Status: Acute Assessment and Plan: Related to excess use of TUMs in the setting of CKD. Calcium levels have normalized Avoid TUMs. Appreciate nephrology consultation Calcitonin has been discontinued Monitor calcium levels closely Bone scan performed yesterday with abnormalities of the hip and lumbar spine; being followed up with X-rays today (2) Atrial fibrillation with RVR: Code(s): I48.91 - Unspecified atrial fibrillation Status: Acute Assessment and Plan: Improved. Rate is in the 80-90s today appreciate cardiology consultation Continue metoprolol tartrate at increased dose 150 mg bid Eliquis held due to hematuria. Will resume monitor on telemetry (3) Aspiration pneumonia: Code(s): J69.0 - Pneumonitis due to inhalation of food and vomit Status: Acute Assessment and Plan: Noted to have dyspnea with new onset course lung sounds 04/24. CXR concerning for aspiration pneumonia with increasing opacities in the bilateral mid and lower lung zones WBC count increased to 17.6; has improved to 13 today Continue IV Unasyn and Vancomycin Evidence of aspiration on MBS. ST evaluated pt and recommended NPO diet. Will plan to repeat swallow study today as he is more alert. aspiration precautions supportive care including bronchodilators and incentive spirometry maintaining adequate oxygenation on room air. Supplemental O2 as needed with goal sat 92% or above (4) Elevated troponin: Code(s): R77.8 - Other specified abnormalities of plasma proteins Status: Acute Assessment and Plan: Elevated with peak up to 0.672. Likely demand ischemia given atrial fibrillation with RVR. he is asymptomatic. appreciate cardiology consultation Echocardiogram reviewed (5) Chronic kidney disease, stage 4 (severe): Code(s): N18.4 - Chronic kidney disease, stage 4 (severe) Status: Acute Assessment and Plan: He is established with Nephrology. Renal function is consistent with his baseline monitor renal function closely. renally dose medications. did have elevation in BUN today which is likely due to diuresis (6) Essential (primary) hypertension: Code(s): I10 - Essential (primary) hypertension Status: Acute Assessment and Plan: Blood pressure has been elevated above target; improving last BP 158/62 Continue metoprolol tartrate at increased dose continue home hydralazine Holding lasix Monitor BP trends (7) Type 2 diabetes mellitus with diabetic nephropathy: Code(s): E11.21 - Type 2 diabetes mellitus with diabetic nephropathy Status: Acute Assessment and Plan: blood sugars generally well controlled. A1c is 5.6 Accu-Cheks, sliding scale insulin, hypoglycemic protocol Increase Lantus to 30 units qHS. uptitrate as needed based on blood sugar trends (8) Confusion: Code(s): R41.0 - Disorientation, unspecified Status: Acute Assessment and Plan: Ongoing for 1 week. He is A&Ox4 but exhibits confusion in conversation. Experienced auditory and visual hallucinations yesterday. Seems more alert today Etiology unclear. Possibly due to electrolyte abnormality/hypercalcemia. Plan as above. May be due to acute infection - continue IV antibiotics Head CT reviewed with no acute findings. Repeat head CT 04/26 again no acute findings Ammonia, B12, and folate wnl. TSH low with normal T4 Consult to neurology. Input is appreciated Pt family denies alcohol use in patient May be due to withdrawal from benzodiazepines. Home alprazolam resumed. Monitor mental status closely Per family, confusion onset was 1 week prior to presentation. (9) Generalized weakness: Code(s): R53.1 - Weakness Status: Acute Assessment and Plan: Wi
[2021-04-27 11:46] LABS: Glucose Point of Care 178 mg/dl (65-105)
--- NOTE | 2021-04-27 12:00 | PC.NURSE ---
Patient traveling to radiology for x-rays then being transferred to medical floor room 332 on 04/27/21 at 1200. Personal belongings sent to room 332. Report given to KAILYN Willett. Appropriate documentation sent with patient.
--- NOTE | 2021-04-27 12:01 | PCDIET ---
Nutrition Follow-Up Complete: Nutrition Diagnosis: Involuntary weight loss related to multiple medical issues, including indigestion, as evidenced by documented 10% weight loss x 7 months without trying. Nutrition Goal: Patient to consume 50% of meals/supplements or greater. Goal not met. Patient remains NPO per [employer] recommendation. Recommend feeding tube placement with Nepro beginning at 20mL/hr. Suggest advancing by 10mL/hr every 6-8 hours, as tolerated, to goal of 45mL/hr. Given approximate daily infusion of 22 hours, this will provide 1782kcal, 80g protein and 719mL free water. Suggest 30mL water flush every 4 hours while IV fluids infusing. Last recorded weight is 98.4 kg which is stable with last review. Bowel Motility: BM x 3 documented today. Labs Reviewed: WBC (13.5), RBC (3.34), Hgb (9.5), Hct (30.1), Glu (179), BUN (65), Cr (2.5), Na (147), Cl (113) Meds Noted: Albuterol, Norvasc, Unasyn, Vitamin D, Vancomycin, Lantus, Imdur, Lopressor, Protonix, NS at 100mL/hr Additional Notes: Noted potassium and phosphorus normal; however, given CKD stage IV with calcium on high end of normal, would suggest Nepro versus Glucerna which will also provide fewer grams protein per kcal provided. Ionized calcium still pending. Will continue to monitor with same goal. Nutrition Monitoring and Evaluation: Follow up every 3 days.
--- NOTE | 2021-04-27 13:00 | PC.NURSE ---
Patient transferred from IMU at 1220. Report received from KAILYN Dennis. at bedside. Patient sleeping with HOB elevated.
--- NOTE | 2021-04-27 13:16 | PCSTNOTE ---
The patient treatment/Bedside Swallow Evaluation was not able to be completed at noon time on 04/27/21 due to patient fatigue, sleeping and would not arouse for therapist or his . Will plan to continue treatment/evaluation per plan of care and orders when patient awake and alert.
[2021-04-27] MEDS: hydrALAZINE HCL 50 MG TABLET PO ×2 (13:30→21:43)
--- NOTE | 2021-04-27 14:04 | PCSTNOTE ---
Please refer to the current Bedside Swallow Evaluation in the EMR. Please note, silent aspiration cannot be ruled out at bedside.
--- NOTE | 2021-04-27 15:16 | PCSTNOTE ---
Please refer to the Modified Barium Swallow Evaluation in the EMR.
--- NOTE | 2021-04-27 16:30 | PM.PNNEP ---
Subjective Date/time seen: 04/27/21 16:30 Objective Data Vital Signs Vital Signs: Vital Signs - 24 hr 04/26/21 17:48 04/26/21 20:00 04/26/21 22:55 Temperature 35.9 C L 36.5 C Pulse Rate 85 77 95 Respiratory Rate 21 H 20 Blood Pressure 138/69 128/53 L Pulse Oximetry 96 95 04/27/21 00:00 04/27/21 04:00 04/27/21 08:00 Temperature 36.4 C L Pulse Rate 93 103 H 54 L Respiratory Rate 22 H Blood Pressure 158/62 H Pulse Oximetry 97 04/27/21 10:46 04/27/21 14:00 Temperature 36.3 C L Pulse Rate 104 H 93 Respiratory Rate 16 Blood Pressure 137/56 L Pulse Oximetry 97 Intake/Output Intake/Output: Intake & Output 04/24/21 04/25/21 04/26/21 04/27/21 23:59 23:59 23:59 23:59 Intake Total 3000 1198 909.4 1900.6 Output Total 2150 2250 1000 1100 Balance 850 -1052 -90.6 800.6 Meds/Results Medications: Active Medications Generic Name Dose Route Start Last Admin Trade Name Freq PRN Reason Stop Dose Admin Acetaminophen 650 mg 04/25/21 10:07 Acetaminophen 325 Mg Tablet PO Q4H PRN Pain 1-3, Fever Hydrocodone Bitart/Acetaminophen 1 tab 04/26/21 16:50 Hydrocodone/Acetaminophen (*Crx) 5-325 Mg Tablet PO Q4H PRN Pain Rated 4-6 Albuterol 2.5 mg 04/25/21 09:53 Albuterol Sulfate Neb 2.5 Mg/0.5 Ml Inh INHALATION Q6HRT PRN Shortness Of Breath Alprazolam 1 mg 04/26/21 21:00 04/26/21 23:16 Alprazolam (*Crx) 0.5 Mg Tablet PO Not Given HS SHABNAM Amlodipine Besylate 5 mg 04/24/21 09:00 04/27/21 10:46 Amlodipine Besylate 5 Mg Tablet PO 5 mg QAM SHABNAM Administration Apixaban 5 mg 04/24/21 17:00 04/26/21 08:27 Apixaban 5 Mg Tablet PO 5 mg BID SHABNAM Administration Aspirin 81 mg 04/24/21 08:00 04/27/21 10:47 Aspirin 81 Mg Chewable Tablet PO 81 mg DAILY@0800 SHABNAM Administration Dextrose 12.5 gm 04/24/21 12:31 Dextrose 50% 25 Gm/50 Ml Syringe IV PUSH PRN PRN Hypoglycemia Protocol Docusate Sodium 100 mg 04/24/21 07:14 Docusate Sodium 100 Mg Capsule PO Q12H PRN Constipation Glucagon 1 mg 04/24/21 12:31 Glucagon For Inj 1 Mg Vial IM PRN PRN Hypoglycemia Protocol Glucose 15 gm 04/24/21 12:31 Glucose Oral Gel 15 Gm Of Glucse In 37.5 Gm Tube PO PRN PRN Hypoglycemia Protocol Hydralazine HCl 50 mg 04/25/21 14:00 04/27/21 13:30 Hydralazine Hcl 50 Mg Tablet PO 50 mg Q8HR SHABNAM Administration Dextrose 1,000 mls @ 100 mls/hr 04/24/21 12:31 Dextrose 5% 1,000 Ml IVPB PRN PRN Hypoglycemia Protocol Ampicillin Sodium/Sulbactam Sodium 3 gm in 100 mls @ 200 mls/hr 04/25/21 10:00 04/27/21 08:57 Unasyn 3 Gm/Ns 100 Ml IVPB Infused Q12HR SHABNAM Infusion Vancomycin HCl 1,500 mg in 500 mls @ 333.333 mls/hr 04/26/21 11:00 04/26/21 16:25 Vancomycin 1,500 Mg/D5w 500 Ml IVPB Infused Q36H SHABNAM Infusion Sodium Chloride 1,000 mls @ 100 mls/hr 04/26/21 12:35 04/27/21 13:31 Normal Saline Iv IV CONT 100 mls/hr .Q10H SHABNAM Administration Insulin Aspart 4 - 8 units 04/25/21 18:00 04/27/21 11:57 Insulin Aspart (*Bkc) 100 Units/Ml SUB-Q Not Given Q6H SHABNAM Protocol Insulin Glargine 30 units 04/27/21 21:00 Insulin Glargine (*Bkc) 100 Units/Ml SUB-Q HS SHABNAM Isosorbide Mononitrate 30 mg 04/24/21 09:00 04/27/21 10:47 Isosorbide Mononitrate 30 Mg Tab.Er.24h PO Not Given QAM SHABNAM Levothyroxine Sodium 100 mcg 04/25/21 06:30 04/27/21 05:52 Levothyroxine Sodium 100 Mcg Tablet PO Not Given DAILY@0630 [facility] Levothyroxine Sodium 75 mcg 04/25/21 06:30 04/27/21 05:52 Levothyroxine Sodium 75 Mcg Tablet PO Not Given DAILY@0630 [facility] Metoprolol Tartrate 150 mg 04/27/21 21:00 Metoprolol Tartrate 50 Mg Tab PO Q12HR [facility] Ondansetron HCl 4 mg 04/24/21 02:16 04/24/21 17:32 Ondansetron Inj 4 Mg/2 Ml Vial IV PUSH 4 mg Q4H PRN Administration Nausea Pantoprazole So
[2021-04-27 17:56] LABS: Glucose Point of Care 163 mg/dl (65-105)
[2021-04-27] MEDS: ACETAMINOPHEN 325 MG TABLET 650 MG PO (21:36)
[2021-04-27] MEDS: ALPRAZolam (*CRX) 0.5 MG TABLET 1 MG PO (21:40)
[2021-04-27] MEDS: METOPROLOL TARTRATE 50 MG TAB 150 MG PO (21:41)
[2021-04-27] MEDS: INSULIN GLARGINE (*BKC) 100 UNITS/ML 30 UNITS SUB-Q (21:50)
[2021-04-27 22:54] LABS: Glucose Point of Care 186 mg/dl (65-105)
[2021-04-27 23:50] LABS: Glucose Point of Care 182 mg/dl (65-105)
[2021-04-28] VITALS (10 sets, daily range): BP systolic 165–169; BP diastolic 67–80; PULSE 74–110; RESP 18–24; TEMP 36.2–36.9; O2SAT 95–98
[2021-04-28] MEDS: LORazepam INJ (*CRX) 2 MG/ML VIAL 1 MG IV PUSH (01:10)
[2021-04-28] MEDS: LEVOTHYROXINE SODIUM 100 MCG TABLET PO (05:30)
[2021-04-28] MEDS: LEVOTHYROXINE SODIUM 75 MCG TABLET PO (05:30)
[2021-04-28 05:31] LABS: Glucose Point of Care 177 mg/dl (65-105)
[2021-04-28] MEDS: hydrALAZINE HCL 50 MG TABLET PO (05:31)
[2021-04-28 06:51] LABS: Hematocrit 28.3 % (42.0-52.0); Hemoglobin 9.2 g/dL (14.0-18.0); Mean Corpuscular HGB Conc 32.5 g/dl (32-36); Mean Corpuscular Hemoglobin 28.6 pg (26-34); Mean Corpuscular Volume 87.9 fl (80-100); Mean Platelet Volume 11.9 fl (7.4-10.4); Platelet Count Result 142 k/mm3 (150-375); Red Blood Count 3.22 M/mm3 (4.6-6.20); Red Cell Distribution Width 15.3 % (11.5-14.5); White Blood Count 9.8 K/mm3 (4.5-10.0)
[2021-04-28 07:34] LABS: Anion Gap 11 mmol/L (8-16); Blood Urea Nitrogen 68 mg/dL (9-20); Calcium 9.6 mg/dL (8.4-10.2); Carbon Dioxide 20 mmol/L (22-30); Chloride 117 mmol/L (98-107); Estimated CRCL calculation 31 ml/min; Estimated Glomerular Filt Rate 30; Glucose 186 mg/dL (65-110); Magnesium 2.2 mg/dL (1.6-2.3); Potassium 3.4 mmol/L (3.4-5.0); Sodium 148 mmol/L (137-145)
--- NOTE | 2021-04-28 08:51 | PM.PNNEP ---
Progress Note: A&P Assessment and Plan (1) Hypercalcemia: Code(s): E83.52 - Hypercalcemia Status: Acute Assessment and Plan: The patient has hypercalcemia. This is most likely due to excess Tums ingestion in the presence of stage 4 chronic kidney disease. his calcium is normal now. (2) Elevated troponin: Code(s): R77.8 - Other specified abnormalities of plasma proteins Status: Acute Assessment and Plan: The patient has atrial fibrillation with rapid ventricular rate. This caused a leak of troponin per Cardiology. He looks euvolemic. Appreciate Cardiology input (3) Chronic kidney disease, stage 4 (severe): Code(s): N18.4 - Chronic kidney disease, stage 4 (severe) Status: Acute Assessment and Plan: The patient's creatinine stable. Etiology is diabetes and hypertension. (4) Afib: Code(s): I48.91 - Unspecified atrial fibrillation Status: Acute Assessment and Plan: The patient has AFib . Cardiology Is on the case. He continues on Eliquis shortness of breath: breathing is better today. he clearly aspirates. getting speech therapy (5) Essential (primary) hypertension: Code(s): I10 - Essential (primary) hypertension Status: Acute Assessment and Plan: His blood pressure is high. he is on isorbide, amlodipine 5, metoprolol 100. Will keep amlodipine at 5 for permissive hypertension since he may have had a stroke. 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 (7) Type 2 diabetes mellitus with diabetic nephropathy: Code(s): E11.21 - Type 2 diabetes mellitus with diabetic nephropathy Status: Acute Assessment and Plan: On meds per hospitalist (8) Aspiration pneumonia: Code(s): J69.0 - Pneumonitis due to inhalation of food and vomit Status: Acute Assessment and Plan: etiology of the swelling issues is unclear. Neurology has been consulted he is on antibiotics Subjective Date/time seen: 04/28/21 08:51 Interval history: patient is feeling okay today. Just woke up. Speech therapy in the room and will be working with the patient. No shortness of breath or cough today Exam Narrative: Exam Narrative: WDWN in NAD skin no rash head ncat lungs clear today cor reg no rub abd BS+ nontender and soft ext no edema. Objective Data Vital Signs Vital Signs: Vital Signs - 24 hr 04/27/21 10:46 04/27/21 12:00 04/27/21 14:00 Temperature 36.3 C L Pulse Rate 104 H 98 93 Respiratory Rate 16 Blood Pressure 137/56 L Pulse Oximetry 97 04/27/21 16:00 04/27/21 20:00 04/27/21 21:41 Temperature Pulse Rate 60 74 74 Respiratory Rate Blood Pressure Pulse Oximetry 04/28/21 00:00 04/28/21 04:00 04/28/21 06:59 Temperature 36.2 C L Pulse Rate 74 98 91 Respiratory Rate 18 Blood Pressure 169/67 H Pulse Oximetry 98 Intake/Output Intake/Output: Intake & Output 04/25/21 04/26/21 04/27/21 04/28/21 23:59 23:59 23:59 23:59 Intake Total 1198 909.4 2900.6 0 Output Total 2250 1000 1200 800 Balance -1052 -90.6 1700.6 -800 Meds/Results Medications: Active Medications Generic Name Dose Route Start Last Admin Trade Name Freq PRN Reason Stop Dose Admin Acetaminophen 650 mg 04/25/21 10:07 04/27/21 21:36 Acetaminophen 325 Mg Tablet PO 650 mg Q4H PRN Administration Pain 1-3, Fever Hydrocodone Bitart/Acetaminophen 1 tab 04/26/21 16:50 Hydrocodone/Acetaminophen (*Crx) 5-325 Mg Tablet PO Q4H PRN Pain Rated 4-6 Albuterol 2.5 mg 04/25/21 09:53 Albuterol Sulfate Neb 2.5 Mg/0.5 Ml Inh INHALATION Q6HRT PRN Shortness Of Breath Alprazolam 1 mg 04/26/21 21:00 04/27/21 21:40 Alprazolam (*Crx) 0.5 Mg Tablet
[2021-04-28 10:03] LABS: Basophils Percent Auto 0.1 % (0.2-1.2); Eosinophils Percent Auto 0.1 % (0-4.4); Hematocrit 30.8 % (42.0-52.0); Hemoglobin 9.2 g/dL (14.0-18.0); Immature Granulocyte Absolute 0.06 K/mm3 (0.00-0.031); Immature Granulocyte Percent A 0.6 % (0-0.5); Lymphocytes Absolute Auto 1.42 K/mm3 (0.9-3.2); Mean Corpuscular HGB Conc 29.9 g/dl (32-36); Mean Corpuscular Volume 93.6 fl (80-100); Mean Platelet Volume 11.3 fl (7.4-10.4); Monocytes Absolute Auto 0.6 K/mm3 (0.1-0.6); Monocytes Percent Auto 6.4 % (2.6-8.5); Neutrophils Absolute Auto 7.4 K/mm3 (1.3-6.7); Neutrophils Percent Auto 77.8 % (45.5-73.1); Platelet Count Result 156 k/mm3 (150-375); Red Blood Count 3.29 M/mm3 (4.6-6.20); Red Cell Distribution Width 15.5 % (11.5-14.5); White Blood Count 9.5 K/mm3 (4.5-10.0)
[2021-04-28 10:11] LABS: Partial Thromboplastin Time 31.2 SECONDS (22.3-36.8)
[2021-04-28 10:17] LABS: Alanine Aminotransferase 24 U/L (4-50); Albumin Level 3.6 g/dL (3.5-5.1); Alkaline Phosphatase 60 U/L (38-126); Anion Gap 15 mmol/L (8-16); Aspartate Amino Transferase 43 U/L (17-59); Bilirubin,Total 0.8 mg/dL (0.2-1.3); Blood Urea Nitrogen 64 mg/dL (9-20); Calcium 9.8 mg/dL (8.4-10.2); Carbon Dioxide 21 mmol/L (22-30); Chloride 115 mmol/L (98-107); Estimated CRCL calculation 29 ml/min; Estimated Glomerular Filt Rate 27; Glucose 171 mg/dL (65-110); Magnesium 2.3 mg/dL (1.6-2.3); Potassium 2.9 mmol/L (3.4-5.0); Sodium 151 mmol/L (137-145)
[2021-04-28 10:25] LABS: Transferrin 222 mg/dL (206-381)
[2021-04-28] MEDS: ASPIRIN 81 MG CHEWABLE TABLET PO (10:46)
[2021-04-28] MEDS: PANTOPRAZOLE SODIUM IV 40 MG VIAL IV PUSH (10:47)
[2021-04-28] MEDS: AMINO ACIDS 4.25%/D5W/LYTES/CA 2,000 ML 80 ML IV CONT (10:48)
[2021-04-28] MEDS: FAT EMULSIONS IV 20% 250 ML 20.83 ML IVPB (10:52)
--- NOTE | 2021-04-28 11:56 | PM.PNCARD ---
Progress Note: A&P Assessment and Plan (1) Atrial fibrillation with RVR: Code(s): I48.91 - Unspecified atrial fibrillation Status: Acute Assessment and Plan: 70-year-old male with multiple medical problems- hypertension, atrial fibrillation on anticoagulation ( history of multiple DC cardioversions, ?? ablation), Bradyarrhythmia status post pacemaker placement at outside hospital ( procedure note not available), diabetes mellitus on insulin, CKD, hypothyroidism on thyroxine replacement, dyslipidemia. patient admitted to the hospital with generalized weakness and hypercalcemia in the setting of excessive intake of tums which patient was taken for dyspepsia. Patient was also found to be in atrial fibrillation with RVR. currently in AFib with heart rates 90's. - Optimize rate control, increase metoprolol tartrate dose 150 mg p.o. b.i.d.. -Patient has permanent pacemaker. Patient has history of persistent atrial fibrillation with multiple cardioversions. Rate control strategy will be pursued unless rhythm control is necessary for any hemodynamic instability. - continue apixaban. - Patient has mild troponin elevation in the setting of AFib with RVR CKD. No active ischemic symptoms at present. Echo from 04/24/21 showed normal systolic function. No indication for ischemic evaluation at this time. He follows with a hiv nurse in [place], [place]. - Continue to monitor on telemetry. - We will follow on p.r.n. basis (2) Hypercalcemia: Code(s): E83.52 - Hypercalcemia Status: Acute Assessment and Plan: management per Nephrology (3) Chronic kidney disease, stage 4 (severe): Code(s): N18.4 - Chronic kidney disease, stage 4 (severe) Status: Acute Assessment and Plan: Management as per nephrology Subjective Date/time seen: 04/28/21 11:56 Date of Service: 04/28/2021: interval history:Patient denies chest pain or shortness of breath. He is slightly confused. Patient's son is in the room. As per staff, patient is on TPN since he has been aspirating. On telemetry, patient is in atrial fibrillation with heart rate is in 90s. Exam Narrative: Exam Narrative: PHYSICAL EXAMINATION: GENERAL: Ill-appearing male MENTAL STATUS: affect appropriate to mood EYES: Extraocular movements intact, no pallor EARS: External ears appear normal, hearing grossly normal NOSE: Normal and patent, no discharge MOUTH: Mucous membranes moist, tongue normal NECK: Supple, no JVD CHEST: decreased respiratory effort HEART: Normal rate, irregularly irregular rhythm ABDOMEN: Soft, nontender NEUROLOGICAL: slightly confused MUSCULOSKELETAL: No major deformity, no amputation EXTREMITIES: No pedal edema, no clubbing, no cyanosis SKIN: no rash on the exposed area, no cyanosis PSYCHIATRIC: slightly confused Objective Data Vital Signs Vital Signs: Vital Signs - 24 hr 04/27/21 12:00 04/27/21 14:00 04/27/21 16:00 Temperature 36.3 C L Pulse Rate 98 93 60 Respiratory Rate 16 Blood Pressure 137/56 L Pulse Oximetry 97 04/27/21 20:00 04/27/21 21:41 04/28/21 00:00 Temperature Pulse Rate 74 74 74 Respiratory Rate Blood Pressure Pulse Oximetry 04/28/21 04:00 04/28/21 06:59 Temperature 36.2 C L Pulse Rate 98 91 Respiratory Rate 18 Blood Pressure 169/67 H Pulse Oximetry 98 Intake/Output Intake/Output: Intake & Output 04/25/21 04/26/21 04/27/21 04/28/21 23:59 23:59 23:59 23:59 Intake Total 1198 909.4 2900.6 0 Output Total 2250 1000 1200 800 Balance -1052 -90.6 1700.6 -800 Meds/Results Medications: Active Medications Generic Name Dose Route Start Last Admin Trade Name Freq PRN Reason Stop Dose Admin Albuterol 2.5 mg 04/25/21 09:53 Albuterol Sulfate Neb 2.5 Mg/0.5 Ml Inh INHALATION Q6HRT PRN Shortness Of Breath Apixaban 5 mg 04/24/21 17:00 04/27/21 16:47 Apixaban 5 Mg Tablet PO Not Giv
[2021-04-28 12:47] LABS: Glucose Point of Care 170 mg/dl (65-105)
[2021-04-28] MEDS: APIXABAN 5 MG TABLET PO ×2 (15:12→17:14)
[2021-04-28] MEDS: METOPROLOL TARTRATE 50 MG TAB 150 MG PO ×2 (15:12→20:32)
[2021-04-28] MEDS: AMPICILLIN SULB 3 GM/NS 100 ML 3 GM/100 ML VIAL IVPB ×2 (15:12→20:16)
--- NOTE | 2021-04-28 16:52 | P.PNIM_ITS ---
Progress Note: A&P Assessment and Plan (1) Encephalopathy: Code(s): G93.40 - Encephalopathy, unspecified Status: Acute Assessment and Plan: Presented with confusion ongoing for 1 week. Seems to be improving. Previously with auditory and visual hallucinations that are resolved. Does not exhibit confusion conversation today. * Suspect metabolic encephalopathy given renal failure and hypercalcemia as well as acute infection * Head CT reviewed with no acute findings. Repeat head CT 04/26 again no acute findings * Ammonia, B12, and folate wnl. TSH low with normal T4 * Consult to neurology. Input is appreciated * Pt family denies alcohol use in patient * May be due to withdrawal from narcotic medications or benzodiazepines. Sedating medications have been discontinued. * Monitor mental status closely (2) Hypercalcemia: Code(s): E83.52 - Hypercalcemia Status: Acute Assessment and Plan: Related to excess use of TUMs in the setting of CKD. * Calcium levels have normalized * Avoid TUMs. * Appreciate nephrology consultation * Treated with calcitonin which has since been discontinued * Monitor calcium levels closely * Bone scan performed yesterday with abnormalities of the hip and lumbar spine; follow-up radiographs without concern (3) Atrial fibrillation with RVR: Code(s): I48.91 - Unspecified atrial fibrillation Status: Acute Assessment and Plan: Improved. Rate is in the 80-90s today * appreciate cardiology consultation * Continue metoprolol tartrate at increased dose 150 mg bid * Continue Eliquis * monitor on telemetry (4) Aspiration pneumonia: Code(s): J69.0 - Pneumonitis due to inhalation of food and vomit Status: Acute Assessment and Plan: Noted to have dyspnea with new onset course lung sounds 04/24. * CXR concerning for aspiration pneumonia with increasing opacities in the bilateral mid and lower lung zones * WBC count increased to 17.6; has normalized today * Continue IV Unasyn and Vancomycin * Evidence of aspiration on MBS x2 with recommendations patient remain NPO. He can take few medications crushed with applesauce. Clinimix initiated today. Continue with speech therapy and consider repeat swallow study if improvement * aspiration precautions * supportive care including bronchodilators and incentive spirometry * maintaining adequate oxygenation on room air. Supplemental O2 as needed with goal sat 92% or above (5) Elevated troponin: Code(s): R77.8 - Other specified abnormalities of plasma proteins Status: Acute Assessment and Plan: Elevated with peak up to 0.672. Likely demand ischemia given atrial fibrillation with RVR. Remains asymptomatic. * appreciate cardiology consultation * Echocardiogram reviewed (6) Chronic kidney disease, stage 4 (severe): Code(s): N18.4 - Chronic kidney disease, stage 4 (severe) Status: Acute Assessment and Plan: He is established with Nephrology. Renal function is consistent with his baseline * monitor renal function closely. renally dose medications. * BUN is elevated which is likely due to diuresis (7) Essential (primary) hypertension: Code(s): I10 - Essential (primary) hypertension Status: Acute Assessment and Plan: Blood pressure has been elevated above target; improving last BP 169/67 * Continue metoprolol tartrate at increased dose * IV hydralazine for systolic BP >160. Limiting oral medi
--- NOTE | 2021-04-28 16:52 | PM.IMPN ---
Progress Note: A&P Assessment and Plan (1) Encephalopathy: Code(s): G93.40 - Encephalopathy, unspecified Status: Acute Assessment and Plan: Presented with confusion ongoing for 1 week. Seems to be improving. Previously with auditory and visual hallucinations that are resolved. Does not exhibit confusion conversation today. Suspect metabolic encephalopathy given renal failure and hypercalcemia as well as acute infection Head CT reviewed with no acute findings. Repeat head CT 04/26 again no acute findings Ammonia, B12, and folate wnl. TSH low with normal T4 Consult to neurology. Input is appreciated Pt family denies alcohol use in patient May be due to withdrawal from narcotic medications or benzodiazepines. Sedating medications have been discontinued. Monitor mental status closely (2) Hypercalcemia: Code(s): E83.52 - Hypercalcemia Status: Acute Assessment and Plan: Related to excess use of TUMs in the setting of CKD. Calcium levels have normalized Avoid TUMs. Appreciate nephrology consultation Treated with calcitonin which has since been discontinued Monitor calcium levels closely Bone scan performed yesterday with abnormalities of the hip and lumbar spine; follow-up radiographs without concern (3) Atrial fibrillation with RVR: Code(s): I48.91 - Unspecified atrial fibrillation Status: Acute Assessment and Plan: Improved. Rate is in the 80-90s today appreciate cardiology consultation Continue metoprolol tartrate at increased dose 150 mg bid Continue Eliquis monitor on telemetry (4) Aspiration pneumonia: Code(s): J69.0 - Pneumonitis due to inhalation of food and vomit Status: Acute Assessment and Plan: Noted to have dyspnea with new onset course lung sounds 04/24. CXR concerning for aspiration pneumonia with increasing opacities in the bilateral mid and lower lung zones WBC count increased to 17.6; has normalized today Continue IV Unasyn and Vancomycin Evidence of aspiration on MBS x2 with recommendations patient remain NPO. He can take few medications crushed with applesauce. Clinimix initiated today. Continue with speech therapy and consider repeat swallow study if improvement aspiration precautions supportive care including bronchodilators and incentive spirometry maintaining adequate oxygenation on room air. Supplemental O2 as needed with goal sat 92% or above (5) Elevated troponin: Code(s): R77.8 - Other specified abnormalities of plasma proteins Status: Acute Assessment and Plan: Elevated with peak up to 0.672. Likely demand ischemia given atrial fibrillation with RVR. Remains asymptomatic. appreciate cardiology consultation Echocardiogram reviewed (6) Chronic kidney disease, stage 4 (severe): Code(s): N18.4 - Chronic kidney disease, stage 4 (severe) Status: Acute Assessment and Plan: He is established with Nephrology. Renal function is consistent with his baseline monitor renal function closely. renally dose medications. BUN is elevated which is likely due to diuresis (7) Essential (primary) hypertension: Code(s): I10 - Essential (primary) hypertension Status: Acute Assessment and Plan: Blood pressure has been elevated above target; improving last BP 169/67 Continue metoprolol tartrate at increased dose IV hydralazine for systolic BP >160. Limiting oral medications given aspiration. Monitor BP trends (8) Type 2 diabetes mellitus with diabetic nephropathy: Code(s): E11.21 - Type 2 diabetes mellitus with diabetic nephropathy Status: Acute Assessment and Plan: blood sugars generally well controlled. A1c is 5.6 Accu-Cheks, sliding scale insulin, hypoglycemic protocol Increase Lantus to 30 units qHS. uptitrate as needed based on blood sugar trends (9) Generalized we
[2021-04-28 18:41] LABS: Glucose Point of Care 208 mg/dl (65-105)
[2021-04-28] MEDS: INSULIN GLARGINE (*BKC) 100 UNITS/ML 35 UNITS SUB-Q (20:27)
[2021-04-28 22:42] LABS: Glucose Point of Care 207 mg/dl (65-105)
[2021-04-29] VITALS (10 sets, daily range): BP systolic 112–170; BP diastolic 48–80; PULSE 81–108; RESP 20; TEMP 35.7–36.7; O2SAT 94–100
[2021-04-29] MEDS: INSULIN ASPART (*BKC) 100 UNITS/ML SUB-Q ×2 (00:49→18:03)
[2021-04-29 01:02] LABS: Glucose Point of Care 222 mg/dl (65-105)
[2021-04-29] MEDS: LEVOTHYROXINE SODIUM INJ 100 MCG/5 ML VIAL 88 MCG IV PUSH (05:58)
[2021-04-29 06:00] LABS: Ionized Calcium 6.3 mg/dL (4.8-5.6)
[2021-04-29 06:15] LABS: Glucose Point of Care 196 mg/dl (65-105)
[2021-04-29] MEDS: ASPIRIN 81 MG CHEWABLE TABLET PO (08:07)
[2021-04-29] MEDS: METOPROLOL TARTRATE 50 MG TAB 150 MG PO ×2 (08:07→20:31)
[2021-04-29] MEDS: APIXABAN 5 MG TABLET PO ×2 (08:08→17:52)
[2021-04-29] MEDS: PANTOPRAZOLE SODIUM IV 40 MG VIAL IV PUSH (08:08)
[2021-04-29] MEDS: AMPICILLIN SULB 3 GM/NS 100 ML 3 GM/100 ML VIAL IVPB ×2 (08:12→20:30)
--- NOTE | 2021-04-29 09:06 | PM.PNNEP ---
Progress Note: A&P Assessment and Plan (1) Hypercalcemia: Code(s): E83.52 - Hypercalcemia Status: Acute Assessment and Plan: The patient has hypercalcemia. This is most likely due to excess Tums ingestion in the presence of stage 4 chronic kidney disease. his calcium is normal now. Hypernatremia patient is hypernatremic. Probable because of NPO status. He was placed on Clinimix which is hypotonic fluid but the sodium went up anyway. His potassium happens to be low. I will give him a K run which would be in D5W and repeat the BMP later today. If his sodium is still high I can given more D5W. (2) Elevated troponin: Code(s): R77.8 - Other specified abnormalities of plasma proteins Status: Acute Assessment and Plan: The patient has atrial fibrillation with rapid ventricular rate. This caused a leak of troponin per Cardiology. He looks euvolemic. Appreciate Cardiology input (3) Chronic kidney disease, stage 4 (severe): Code(s): N18.4 - Chronic kidney disease, stage 4 (severe) Status: Acute Assessment and Plan: The patient's creatinine stable. Etiology is diabetes and hypertension. (4) Afib: Code(s): I48.91 - Unspecified atrial fibrillation Status: Acute Assessment and Plan: The patient has AFib . Cardiology Is on the case. He continues on Eliquis shortness of breath: breathing is better today. he clearly aspirates. getting speech therapy . Lungs are much improved since n.p.o. (5) Essential (primary) hypertension: Code(s): I10 - Essential (primary) hypertension Status: Acute Assessment and Plan: His blood pressure is high. he is on isorbide, amlodipine 5, metoprolol 100. Will keep amlodipine at 5 for permissive hypertension since he may have had a stroke. 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 (7) Type 2 diabetes mellitus with diabetic nephropathy: Code(s): E11.21 - Type 2 diabetes mellitus with diabetic nephropathy Status: Acute Assessment and Plan: On meds per hospitalist (8) Aspiration pneumonia: Code(s): J69.0 - Pneumonitis due to inhalation of food and vomit Status: Acute Assessment and Plan: etiology of the swelling issues is unclear. Neurology has been consulted he is on antibiotics Subjective Date/time seen: 04/29/21 09:06 Interval history: patient is feeling okay today. Just woke up. Speech therapy in the room. he tolerated apple sauce. He is hoping we can advance diet tomorrow after her session with him. Exam Narrative: Exam Narrative: WDWN in NAD skin no rash head ncat lungs clear today cor irreg no rub abd BS+ nontender and soft ext no edema. Objective Data Vital Signs Vital Signs: Vital Signs - 24 hr 04/28/21 12:00 04/28/21 16:00 04/28/21 16:30 Temperature 36.7 C Pulse Rate 107 H 110 H 92 Respiratory Rate 20 Blood Pressure 165/68 H Pulse Oximetry 95 04/28/21 20:00 04/28/21 20:32 04/28/21 22:00 Temperature 36.9 C Pulse Rate 100 97 83 Respiratory Rate 24 H Blood Pressure 169/80 H Pulse Oximetry 98 04/29/21 00:00 04/29/21 04:00 04/29/21 06:00 Temperature 36.7 C Pulse Rate 81 108 H 89 Respiratory Rate 20 Blood Pressure 170/80 H Pulse Oximetry 98 04/29/21 08:00 Temperature 36.6 C Pulse Rate 92 Respiratory Rate 20 Blood Pressure 150/79 H Pulse Oximetry 99 Intake/Output Intake/Output: Intake & Output 04/26/21 04/27/21 04/28/21 04/29/21 23:59 23:59 23:59 23:59 Intake Total 909.4 3000.6 200 250 Output Total 1000 1200 800 900 Balance -90.6 1800.6 -600 -650 Meds/Results Medications: Active Medications Generic Name Dose Route Start Last Admin Trade Name Freq PRN Reason S
[2021-04-29 10:59] LABS: Triglycerides 192 mg/dL (<150)
[2021-04-29 11:00] LABS: Albumin Level 3.5 g/dL (3.5-5.1); Anion Gap 13 mmol/L (8-16); Blood Urea Nitrogen 62 mg/dL (9-20); Calcium 9.4 mg/dL (8.4-10.2); Carbon Dioxide 20 mmol/L (22-30); Chloride 116 mmol/L (98-107); Estimated CRCL calculation 33 ml/min; Estimated Glomerular Filt Rate 31; Glucose 210 mg/dL (65-110); Phosphorus 2.9 mg/dL (2.5-4.5); Potassium 3.2 mmol/L (3.4-5.0); Sodium 149 mmol/L (137-145)
--- NOTE | 2021-04-29 11:04 | P.PNIM_ITS ---
Progress Note: A&P Assessment and Plan (1) Encephalopathy: Code(s): G93.40 - Encephalopathy, unspecified Status: Acute Assessment and Plan: Improving. Presented with confusion ongoing for 1 week. Previously with auditory and visual hallucinations that are resolved. Does not exhibit confusion conversation today. * Suspect metabolic encephalopathy given renal failure and hypercalcemia as well as acute infection * Head CT reviewed with no acute findings. Repeat head CT 04/26 again no acute findings * Ammonia, B12, and folate wnl. TSH low with normal T4 * Consult to neurology. Input is appreciated * Pt family denies alcohol use in patient * May be due to withdrawal from narcotic medications or benzodiazepines. Sedating medications have been discontinued. * Monitor mental status closely (2) Hypercalcemia: Code(s): E83.52 - Hypercalcemia Status: Acute Assessment and Plan: Related to excess use of TUMs in the setting of CKD. * Calcium levels have normalized * Avoid TUMs. * Appreciate nephrology consultation * Treated with calcitonin which has since been discontinued * Bone scan performed 04/26 with abnormalities of the hip and lumbar spine; follow-up radiographs witho degenerative changes (3) Atrial fibrillation with RVR: Code(s): I48.91 - Unspecified atrial fibrillation Status: Acute Assessment and Plan: Improved. Rate is in the 90s today * appreciate cardiology consultation * Continue metoprolol tartrate at increased dose 150 mg bid * Continue Eliquis * monitor on telemetry (4) Aspiration pneumonia: Code(s): J69.0 - Pneumonitis due to inhalation of food and vomit Status: Acute Assessment and Plan: Noted to have dyspnea with new onset course lung sounds 04/24. * CXR concerning for aspiration pneumonia with increasing opacities in the bilateral mid and lower lung zones * WBC count increased to 17.6; has normalized today * Continue IV Unasyn and Vancomycin * Evidence of aspiration on MBS x2 with recommendations patient remain NPO. He is now more alert and progressing with ST. Discussed with BRASSWIND INSTRUMENT REPAIRER and will attempt pureed diet and thickened liquids. Continue ST and consider repeat MBS. Will discontinue clinimix with advancing diet. * aspiration precautions. He needs assistance with all meals and should have small portions with breaks to prevent fatigue * supportive care including bronchodilators and incentive spirometry * maintaining adequate oxygenation on room air. Supplemental O2 as needed with goal sat 92% or above (5) Elevated troponin: Code(s): R77.8 - Other specified abnormalities of plasma proteins Status: Acute Assessment and Plan: Elevated with peak up to 0.672. Likely demand ischemia given atrial fibrillation with RVR. Remains asymptomatic. * appreciate cardiology consultation * Echocardiogram reviewed (6) Chronic kidney disease, stage 4 (severe): Code(s): N18.4 - Chronic kidney disease, stage 4 (severe) Status: Acute Assessment and Plan: He is established with Nephrology. Renal function is consistent with his baseline * monitor renal function closely. renally dose medications. * appreciate nephrology consultation (7) Essential (primary) hypertension: Code(s): I10 - Essential (primary) hypertension Status: Acute Assessment and Plan: Blood pressure has been elevated above target; improving. last BP 150/79 * Continue metoprolol
--- NOTE | 2021-04-29 11:04 | PM.IMPN ---
Progress Note: A&P Assessment and Plan (1) Encephalopathy: Code(s): G93.40 - Encephalopathy, unspecified Status: Acute Assessment and Plan: Improving. Presented with confusion ongoing for 1 week. Previously with auditory and visual hallucinations that are resolved. Does not exhibit confusion conversation today. Suspect metabolic encephalopathy given renal failure and hypercalcemia as well as acute infection Head CT reviewed with no acute findings. Repeat head CT 04/26 again no acute findings Ammonia, B12, and folate wnl. TSH low with normal T4 Consult to neurology. Input is appreciated Pt family denies alcohol use in patient May be due to withdrawal from narcotic medications or benzodiazepines. Sedating medications have been discontinued. Monitor mental status closely (2) Hypercalcemia: Code(s): E83.52 - Hypercalcemia Status: Acute Assessment and Plan: Related to excess use of TUMs in the setting of CKD. Calcium levels have normalized Avoid TUMs. Appreciate nephrology consultation Treated with calcitonin which has since been discontinued Bone scan performed 04/26 with abnormalities of the hip and lumbar spine; follow-up radiographs witho degenerative changes (3) Atrial fibrillation with RVR: Code(s): I48.91 - Unspecified atrial fibrillation Status: Acute Assessment and Plan: Improved. Rate is in the 90s today appreciate cardiology consultation Continue metoprolol tartrate at increased dose 150 mg bid Continue Eliquis monitor on telemetry (4) Aspiration pneumonia: Code(s): J69.0 - Pneumonitis due to inhalation of food and vomit Status: Acute Assessment and Plan: Noted to have dyspnea with new onset course lung sounds 04/24. CXR concerning for aspiration pneumonia with increasing opacities in the bilateral mid and lower lung zones WBC count increased to 17.6; has normalized today Continue IV Unasyn and Vancomycin Evidence of aspiration on MBS x2 with recommendations patient remain NPO. He is now more alert and progressing with ST. Discussed with ADVISOR CONSULTANT and will attempt pureed diet and thickened liquids. Continue ST and consider repeat MBS. Will discontinue clinimix with advancing diet. aspiration precautions. He needs assistance with all meals and should have small portions with breaks to prevent fatigue supportive care including bronchodilators and incentive spirometry maintaining adequate oxygenation on room air. Supplemental O2 as needed with goal sat 92% or above (5) Elevated troponin: Code(s): R77.8 - Other specified abnormalities of plasma proteins Status: Acute Assessment and Plan: Elevated with peak up to 0.672. Likely demand ischemia given atrial fibrillation with RVR. Remains asymptomatic. appreciate cardiology consultation Echocardiogram reviewed (6) Chronic kidney disease, stage 4 (severe): Code(s): N18.4 - Chronic kidney disease, stage 4 (severe) Status: Acute Assessment and Plan: He is established with Nephrology. Renal function is consistent with his baseline monitor renal function closely. renally dose medications. appreciate nephrology consultation (7) Essential (primary) hypertension: Code(s): I10 - Essential (primary) hypertension Status: Acute Assessment and Plan: Blood pressure has been elevated above target; improving. last BP 150/79 Continue metoprolol tartrate at increased dose IV hydralazine for systolic BP >160. Limiting oral medications given aspiration. Monitor BP trends (8) Type 2 diabetes mellitus with diabetic nephropathy: Code(s): E11.21 - Type 2 diabetes mellitus with diabetic nephropathy Status: Acute Assessment and Plan: blood sugars generally well controlled, some readings slightly elevated. A1c is 5.6 Accu-Cheks, sliding scale insulin, hypoglycemi
[2021-04-29 11:25] LABS: Vancomycin Trough 12.4 ug/mL (10.0-20.0)
[2021-04-29 11:29] LABS: Hematocrit 29.4 % (42.0-52.0)
--- NOTE | 2021-04-29 11:52 | PCSTNOTE ---
Bedside swallow evaluation completed. Please see ST evaluation for details and recommendations.
--- NOTE | 2021-04-29 11:54 | PCSTNOTE ---
Please not error in documentation. Bedside swallow evaluation NOT completed for this pt. on this date. Bedside oral trials were administered and documented under ST treatment. Discussion with hospitalist to advance diet. Please see updated swallow precautions and recommendations reflecting these changes.
[2021-04-29 12:32] LABS: Glucose Point of Care 183 mg/dl (65-105)
[2021-04-29 17:12] LABS: Anion Gap 10 mmol/L (8-16); Blood Urea Nitrogen 61 mg/dL (9-20); Calcium 8.7 mg/dL (8.4-10.2); Carbon Dioxide 18 mmol/L (22-30); Chloride 112 mmol/L (98-107); Estimated CRCL calculation 36 ml/min; Estimated Glomerular Filt Rate 35; Glucose 248 mg/dL (65-110); Potassium 3.3 mmol/L (3.4-5.0); Sodium 140 mmol/L (137-145)
[2021-04-29] MEDS: POTASSIUM CHLORIDE 20 MEQ TABLET 40 MEQ PO (17:52)
[2021-04-29 18:09] LABS: Glucose Point of Care 225 mg/dl (65-105)
[2021-04-29] MEDS: INSULIN GLARGINE (*BKC) 100 UNITS/ML 35 UNITS SUB-Q (20:36)
[2021-04-29 23:07] LABS: Kappa\\Lambda Light Chains 1.39 (0.26-1.65)
[2021-04-30] VITALS (9 sets, daily range): BP systolic 125–149; BP diastolic 75–79; PULSE 65–100; RESP 18–26; TEMP 36–36.4; O2SAT 99–100
[2021-04-30 00:46] LABS: Glucose Point of Care 200 mg/dl (65-105)
[2021-04-30 00:46] LABS: Glucose Point of Care 117 mg/dl (65-105)
[2021-04-30] MEDS: LEVOTHYROXINE SODIUM INJ 100 MCG/5 ML VIAL 88 MCG IV PUSH (05:57)
[2021-04-30 06:15] LABS: Glucose Point of Care 108 mg/dl (65-105)
[2021-04-30 06:38] LABS: Basophils Percent Auto 0.1 % (0.2-1.2); Eosinophils Absolute Auto 0.1 K/mm3 (0-0.3); Eosinophils Percent Auto 1.3 % (0-4.4); Hematocrit 27.6 % (42.0-52.0); Hemoglobin 8.8 g/dL (14.0-18.0); Immature Granulocyte Absolute 0.07 K/mm3 (0.00-0.031); Immature Granulocyte Percent A 0.7 % (0-0.5); Lymphocytes Absolute Auto 1.54 K/mm3 (0.9-3.2); Lymphocytes Percent Auto 15.2 % (18.3-44.2); Mean Corpuscular HGB Conc 31.9 g/dl (32-36); Mean Corpuscular Hemoglobin 28.4 pg (26-34); Mean Platelet Volume 11.7 fl (7.4-10.4); Monocytes Absolute Auto 0.7 K/mm3 (0.1-0.6); Monocytes Percent Auto 6.4 % (2.6-8.5); Neutrophils Absolute Auto 7.7 K/mm3 (1.3-6.7); Neutrophils Percent Auto 76.3 % (45.5-73.1); Platelet Count Result 129 k/mm3 (150-375); Red Cell Distribution Width 15.5 % (11.5-14.5); White Blood Count 10.1 K/mm3 (4.5-10.0)
[2021-04-30 06:48] LABS: Albumin Level 3.1 g/dL (3.5-5.1); Anion Gap 11 mmol/L (8-16); Blood Urea Nitrogen 54 mg/dL (9-20); Calcium 8.6 mg/dL (8.4-10.2); Carbon Dioxide 20 mmol/L (22-30); Chloride 110 mmol/L (98-107); Estimated CRCL calculation 36 ml/min; Estimated Glomerular Filt Rate 35; Glucose 106 mg/dL (65-110); Phosphorus 2.3 mg/dL (2.5-4.5); Potassium 3.5 mmol/L (3.4-5.0); Sodium 141 mmol/L (137-145)
--- NOTE | 2021-04-30 07:43 | PC.NURSE ---
Patient had repeated requests through the night to lay in his bed or sit up. He had requests every 30-60 minutes. Frequent requests to use the BR to urinate (reminded that he had a maya) and BM's. Most BM's were small and he had some mild stool incontinence. He was often heard yelling Tatiana which he said was the name of his . He pulled out his IV in the morning, requiring an IV change. He was brought a recliner for comfort though he continued to want to alternate positions.
[2021-04-30] MEDS: APIXABAN 5 MG TABLET PO ×2 (09:37→17:19)
[2021-04-30] MEDS: AMPICILLIN SULB 3 GM/NS 100 ML 3 GM/100 ML VIAL IVPB ×2 (09:37→21:22)
[2021-04-30] MEDS: PANTOPRAZOLE SODIUM IV 40 MG VIAL IV PUSH (09:37)
[2021-04-30] MEDS: ASPIRIN 81 MG CHEWABLE TABLET PO (09:37)
[2021-04-30] MEDS: METOPROLOL TARTRATE 50 MG TAB 150 MG PO ×2 (09:37→21:23)
[2021-04-30 11:06] LABS: Transferrin 210 mg/dL (206-381)
[2021-04-30 12:14] LABS: Glucose Point of Care 177 mg/dl (65-105)
--- NOTE | 2021-04-30 12:53 | P.PNIM_ITS ---
Progress Note: A&P Assessment and Plan (1) Encephalopathy: Code(s): G93.40 - Encephalopathy, unspecified Status: Acute Assessment and Plan: Improving. Presented with confusion ongoing for 1 week. Previously with auditory and visual hallucinations that are resolved. Does not exhibit confusion today. * Suspect metabolic encephalopathy given renal failure and hypercalcemia as well as acute infection * Head CT reviewed with no acute findings. Repeat head CT 04/26 again no acute findings * Ammonia, B12, and folate wnl. TSH low with normal T4 * Has been seen in consultation by neurology * Pt family denies alcohol use in patient. May have been due to narcotic medications or benzos which have been held. * Monitor mental status closely (2) Hypercalcemia: Code(s): E83.52 - Hypercalcemia Status: Acute Assessment and Plan: Related to excess use of TUMs in the setting of CKD. * Calcium levels have normalized * Avoid TUMs. * Appreciate nephrology consultation * Treated with calcitonin which has since been discontinued * Bone scan performed 04/26 with abnormalities of the hip and lumbar spine; follow-up radiographs with degenerative changes (3) Atrial fibrillation with RVR: Code(s): I48.91 - Unspecified atrial fibrillation Status: Acute Assessment and Plan: Improved. Rate is in the 80-90s today * appreciate cardiology consultation * Continue metoprolol tartrate at increased dose 150 mg bid * Continue Eliquis * Will discontinue telemetry (4) Aspiration pneumonia: Code(s): J69.0 - Pneumonitis due to inhalation of food and vomit Status: Acute Assessment and Plan: Noted to have dyspnea with new onset course lung sounds 04/24. * CXR concerning for aspiration pneumonia with increasing opacities in the bilateral mid and lower lung zones * WBC count increased to 17.6 and has now normalized * Continue IV Unasyn (Day 6) and Vancomycin (Day 5) * Evidence of aspiration on MBS x2 with recommendations patient remain NPO. He is now more alert and progressing with ST. Discussed with AIRPLANE GAS TANK LINER ASSEMBLER and have attempted pureed diet and thickened liquids which he is tolerating. Continue ST and consider repeat MBS. Continuing to limit PO medications until further ST evaluation/recommendations * Aspiration precautions. He needs assistance with all meals and should have small portions with breaks to prevent fatigue * Supportive care including bronchodilators and incentive spirometry * Maintaining adequate oxygenation on room air. Supplemental O2 as needed with goal sat 92% or above (5) Elevated troponin: Code(s): R77.8 - Other specified abnormalities of plasma proteins Status: Acute Assessment and Plan: Elevated with peak up to 0.672. Likely demand ischemia given atrial fibrillation with RVR. Remains asymptomatic. * appreciate cardiology consultation * Echocardiogram reviewed (6) Chronic kidney disease, stage 4 (severe): Code(s): N18.4 - Chronic kidney disease, stage 4 (severe) Status: Acute Assessment and Plan: He is established with Nephrology. Renal function is consistent with his baseline and has improved throughout admission * monitor renal function closely. renally dose medications. * appreciate nephrology consultation (7) Essential (primary) hypertension: Code(s): I10 - Essential (primary) hypertension Status: Acute Assessment and Plan: Blood pressure has been elevated above targe
--- NOTE | 2021-04-30 12:53 | PM.IMPN ---
Progress Note: A&P Assessment and Plan (1) Encephalopathy: Code(s): G93.40 - Encephalopathy, unspecified Status: Acute Assessment and Plan: Improving. Presented with confusion ongoing for 1 week. Previously with auditory and visual hallucinations that are resolved. Does not exhibit confusion today. Suspect metabolic encephalopathy given renal failure and hypercalcemia as well as acute infection Head CT reviewed with no acute findings. Repeat head CT 04/26 again no acute findings Ammonia, B12, and folate wnl. TSH low with normal T4 Has been seen in consultation by neurology Pt family denies alcohol use in patient. May have been due to narcotic medications or benzos which have been held. Monitor mental status closely (2) Hypercalcemia: Code(s): E83.52 - Hypercalcemia Status: Acute Assessment and Plan: Related to excess use of TUMs in the setting of CKD. Calcium levels have normalized Avoid TUMs. Appreciate nephrology consultation Treated with calcitonin which has since been discontinued Bone scan performed 04/26 with abnormalities of the hip and lumbar spine; follow-up radiographs with degenerative changes (3) Atrial fibrillation with RVR: Code(s): I48.91 - Unspecified atrial fibrillation Status: Acute Assessment and Plan: Improved. Rate is in the 80-90s today appreciate cardiology consultation Continue metoprolol tartrate at increased dose 150 mg bid Continue Eliquis Will discontinue telemetry (4) Aspiration pneumonia: Code(s): J69.0 - Pneumonitis due to inhalation of food and vomit Status: Acute Assessment and Plan: Noted to have dyspnea with new onset course lung sounds 04/24. CXR concerning for aspiration pneumonia with increasing opacities in the bilateral mid and lower lung zones WBC count increased to 17.6 and has now normalized Continue IV Unasyn (Day 6) and Vancomycin (Day 5) Evidence of aspiration on MBS x2 with recommendations patient remain NPO. He is now more alert and progressing with ST. Discussed with APPLIANCE SERVICE TECHNICIAN and have attempted pureed diet and thickened liquids which he is tolerating. Continue ST and consider repeat MBS. Continuing to limit PO medications until further ST evaluation/recommendations Aspiration precautions. He needs assistance with all meals and should have small portions with breaks to prevent fatigue Supportive care including bronchodilators and incentive spirometry Maintaining adequate oxygenation on room air. Supplemental O2 as needed with goal sat 92% or above (5) Elevated troponin: Code(s): R77.8 - Other specified abnormalities of plasma proteins Status: Acute Assessment and Plan: Elevated with peak up to 0.672. Likely demand ischemia given atrial fibrillation with RVR. Remains asymptomatic. appreciate cardiology consultation Echocardiogram reviewed (6) Chronic kidney disease, stage 4 (severe): Code(s): N18.4 - Chronic kidney disease, stage 4 (severe) Status: Acute Assessment and Plan: He is established with Nephrology. Renal function is consistent with his baseline and has improved throughout admission monitor renal function closely. renally dose medications. appreciate nephrology consultation (7) Essential (primary) hypertension: Code(s): I10 - Essential (primary) hypertension Status: Acute Assessment and Plan: Blood pressure has been elevated above target; improving. last BP 149/79 Continue metoprolol tartrate at increased dose IV hydralazine for systolic BP >160. Limiting oral medications given aspiration. Resume PO antihypertensives when clinically appropriate Monitor BP trends (8) Type 2 diabetes mellitus with diabetic nephropathy: Code(s): E11.21 - Type 2 diabetes mellitus with diabetic nephropathy Status: Acute Assessment and Plan: Blood sugars g
--- NOTE | 2021-04-30 13:55 | PM.PNNEP ---
Progress Note: A&P Assessment and Plan (1) Hypercalcemia: Code(s): E83.52 - Hypercalcemia Status: Acute Assessment and Plan: The patient has hypercalcemia. This is most likely due to excess Tums ingestion in the presence of stage 4 chronic kidney disease. his calcium is now in the 8. Hypernatremia Resolved (2) Elevated troponin: Code(s): R77.8 - Other specified abnormalities of plasma proteins Status: Acute Assessment and Plan: The patient has atrial fibrillation with rapid ventricular rate. This caused a leak of troponin per Cardiology. He looks euvolemic. Appreciate Cardiology input (3) Chronic kidney disease, stage 4 (severe): Code(s): N18.4 - Chronic kidney disease, stage 4 (severe) Status: Acute Assessment and Plan: The patient's creatinine stable. Etiology is diabetes and hypertension. (4) Afib: Code(s): I48.91 - Unspecified atrial fibrillation Status: Acute Assessment and Plan: The patient has AFib . Cardiology Is on the case. He continues on Eliquis shortness of breath: breathing is better today. lungs sound really good he clearly aspirates. getting speech therapy . Lungs are much improved now. (5) Essential (primary) hypertension: Code(s): I10 - Essential (primary) hypertension Status: Acute Assessment and Plan: His blood pressure is high. he is on isorbide, amlodipine 5, metoprolol 100. Will keep amlodipine at 5 for permissive hypertension since he may have had a stroke. 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 (7) Type 2 diabetes mellitus with diabetic nephropathy: Code(s): E11.21 - Type 2 diabetes mellitus with diabetic nephropathy Status: Acute Assessment and Plan: On meds per hospitalist (8) Aspiration pneumonia: Code(s): J69.0 - Pneumonitis due to inhalation of food and vomit Status: Acute Assessment and Plan: etiology of the swelling issues is unclear. Neurology feels this is generalized weakness he is on antibiotics Subjective Date/time seen: 04/30/21 13:55 Interval history: patient is feeling okay today. Doing well eating some breakfast. Exam Narrative: Exam Narrative: WDWN in NAD skin no rash or subcu nodules head ncat lungs clear today cor irreg no rub or gallop abd BS+ nontender and soft ext no edema. Objective Data Vital Signs Vital Signs: Vital Signs - 24 hr 04/29/21 14:00 04/29/21 16:00 04/29/21 20:00 Temperature 36.4 C L Pulse Rate 100 101 H 91 Respiratory Rate 20 Blood Pressure 112/70 Pulse Oximetry 94 04/29/21 20:31 04/29/21 22:00 04/30/21 00:00 Temperature 35.7 C L Pulse Rate 101 H 87 83 Respiratory Rate 20 Blood Pressure 121/48 L Pulse Oximetry 100 04/30/21 04:00 04/30/21 06:00 04/30/21 08:00 Temperature 36.0 C L Pulse Rate 100 75 90 Respiratory Rate 26 H Blood Pressure 149/79 H Pulse Oximetry 100 04/30/21 09:37 04/30/21 12:00 Temperature Pulse Rate 75 90 Respiratory Rate Blood Pressure Pulse Oximetry Intake/Output Intake/Output: Intake & Output 04/27/21 04/28/21 04/29/21 04/30/21 23:59 23:59 23:59 23:59 Intake Total 3000.6 1700 4530 1300 Output Total 5082 134 2933 550 Balance 1800.6 900 2905 750 Meds/Results Medications: Active Medications Generic Name Dose Route Start Last Admin Trade Name Freq PRN Reason Stop Dose Admin Albuterol 2.5 mg 04/25/21 09:53 Albuterol Sulfate Neb 2.5 Mg/0.5 Ml Inh INHALATION Q6HRT PRN Shortness Of Breath Apixaban 5 mg 04/24/21 17:00 04/30/21 09:37 Apixaban 5 Mg Tablet PO 5 mg BID SHABNAM Administration Aspirin 81 mg 04/24/21 08:00 04/30/21 09:37 Aspirin 81 Mg Chewable Tab
--- NOTE | 2021-04-30 13:58 | PCNFU ---
Nutrition Follow-Up Complete: Involuntary weight loss related to multiple medical issues, including indigestion, as evidenced by documented 10% weight loss x 7 months without trying. Goal: Patient to consume 50% of meals/supplements or greater. Patient is not meeting goal. Will continue to work towards goal. Pt current nutrition is Regular, Pureed Level 4, Mildly thick liquids. Patient receiving Ensure Compact BID providing 220 kcals and 9 gm protein. Last recorded weight is 95.1 kg. Bowel Motility: Last BM: 04/30 Labs Reviewed: Hgb 8.8, Hct 27.6, Alb 3.1, Na 141, K 3.5, GFR 35, BUN 54, Cr 1.9, Glu 109 Meds Noted: Albuterol, Unasyn, Eliquis, Aspirin, Dextrose, Novolog, Lantus, Synthroid Inj, Lopressor, Zofran, Protonix, Vancomycin. Additional Notes: TPN has been stopped. Patient has been advanced to a Regular, Pureed level 4, mildly thickened liquid diet. Speech therapy is following. No known changes in weight. was in the room upon assessment and explained that the patient does not eat very well at home. also stated that the patient has swallowing difficulties at home, but she will cook him whatever he wants to eat. Patient is not hungry around meal times, yet makes himself eat. Will continue to monitor weight, food intake, and bowel motility. Follow up every 5 days.
--- NOTE | 2021-04-30 14:21 | PCNSR ---
On 04/30/21, the student,Azucena Rodriguez, provided care and completed [facility] documentation on this patient. I have reviewed the student's documentation and agree with the findings.
--- NOTE | 2021-04-30 16:15 | PCSTNOTE ---
Attempted treatment; unable on this date as during attempt; pt was with physician.
[2021-04-30 17:26] LABS: Glucose Point of Care 103 mg/dl (65-105)
[2021-04-30] MEDS: INSULIN GLARGINE (*BKC) 100 UNITS/ML 35 UNITS SUB-Q (21:23)
[2021-05-01] MEDS: LEVOTHYROXINE SODIUM INJ 100 MCG/5 ML VIAL 88 MCG IV PUSH (04:10)
[2021-05-01 04:38] LABS: Glucose Point of Care 149 mg/dl (65-105)
[2021-05-01 04:38] LABS: Glucose Point of Care 137 mg/dl (65-105)
[2021-05-01 04:38] LABS: Glucose Point of Care 150 mg/dl (65-105)
[2021-05-01 06:00] VITALS: BP 139/73; PULSE 93; RESP 20; TEMP 36.5; O2SAT 100
[2021-05-01 06:38] LABS: Hematocrit 27.2 % (42.0-52.0); Hemoglobin 8.8 g/dL (14.0-18.0); Mean Corpuscular HGB Conc 32.4 g/dl (32-36); Mean Corpuscular Hemoglobin 28.2 pg (26-34); Mean Corpuscular Volume 87.2 fl (80-100); Mean Platelet Volume 11.5 fl (7.4-10.4); Platelet Count Result 133 k/mm3 (150-375); Red Blood Count 3.12 M/mm3 (4.6-6.20); Red Cell Distribution Width 15.2 % (11.5-14.5); White Blood Count 11.2 K/mm3 (4.5-10.0)
[2021-05-01 06:53] LABS: Anion Gap 8 mmol/L (8-16); Blood Urea Nitrogen 48 mg/dL (9-20); Calcium 8.1 mg/dL (8.4-10.2); Carbon Dioxide 22 mmol/L (22-30); Chloride 108 mmol/L (98-107); Estimated CRCL calculation 38 ml/min; Estimated Glomerular Filt Rate 37; Glucose 142 mg/dL (65-110); Phosphorus 2.2 mg/dL (2.5-4.5); Potassium 3.7 mmol/L (3.4-5.0); Sodium 138 mmol/L (137-145)
--- NOTE | 2021-05-01 08:31 | PC.NURSE ---
Patient had frequent c/o back and neck pain somewhat relived by frequent position changes. He appeared to sleep for up to 1 hour after each position change before yelling for someone who wasn't in the hospital like his Tatiana. He had one episode of stool incontinence.
[2021-05-01 08:36] LABS: Triglycerides 138 mg/dL (<150)
[2021-05-01] MEDS: AMPICILLIN SULB 3 GM/NS 100 ML 3 GM/100 ML VIAL IVPB ×2 (09:36→21:57)
[2021-05-01 09:37] VITALS: PULSE 93
[2021-05-01] MEDS: ACETAMINOPHEN 500 MG TABLET 1000 MG PO ×2 (09:37→21:58)
[2021-05-01] MEDS: METOPROLOL TARTRATE 50 MG TAB 150 MG PO ×2 (09:37→21:56)
[2021-05-01] MEDS: APIXABAN 5 MG TABLET PO ×2 (09:38→17:47)
[2021-05-01] MEDS: ASPIRIN 81 MG CHEWABLE TABLET PO (09:38)
[2021-05-01] MEDS: PANTOPRAZOLE SODIUM IV 40 MG VIAL IV PUSH (09:38)
--- NOTE | 2021-05-01 10:18 | P.NEURO_ITS ---
Neurology EEG Report General Information Date of Study: 05/01/21 TEST EEG DIAGNOSIS change in the mental status CONDITION OF RECORDING drowsy and sleep EEG NUMBER [id number] CLINICAL HISTORY patient reported he has been admitted to the hospital for trouble in swallowing. EEG DESCRIPTION Background rhythm consists of low to medium voltage 5 to 7 hertz per 2nd theta admixed with low to medium voltage 3 to 4 hertz per 2nd delta. Bilateral sy mmetrical sleep activity seen during sleep. Hyperventilation not done. Photic stimulation not done. Non paroxysmal. Nonfocal. Nonlateralizing. IMPRESSION Abnormal record due to the presence of bihemispheric theta and delta activity. These abnormalities are suggestive of organic or metabolic encephalopathy. There is no evidence of any paroxysmal activity throughout the tracing clinical correlation recommended
--- NOTE | 2021-05-01 10:54 | WPDNEUROLOGY ---
Neurology EEG Report General Information Date of Study: 05/01/21 TEST EEG DIAGNOSIS change in the mental status CONDITION OF RECORDING drowsy and sleep EEG NUMBER [id number] CLINICAL HISTORY patient reported that he is here because he has trouble swallowing EEG DESCRIPTION whole record consists of low to medium voltage 5 to 7 hertz per 2nd theta admixed with low to medium voltage 3 to 4 hertz per 2nd delta activity. Bilateral symmetrical sleep activity seen during sleep. Hyperventilation not done. Photic stimulation not done. Non paroxysmal. Nonfocal. Nonlateralizing. IMPRESSION Abnormal record due to the absence of normal background rhythm, And due to the presence of bihemispheric theta and delta activity, he is finding suggestive of organic a metabolic encephalopathy, possibility of neuro degenerative process cannot be ruled out, clinical correlation recommended.
[2021-05-01] MEDS: POTASSIUM PHOS/SODIUM PHOS 250 MG TABLET PO (12:25)
[2021-05-01 12:42] LABS: Glucose Point of Care 190 mg/dl (65-105)
[2021-05-01 14:00] VITALS: BP 122/81; PULSE 88; RESP 18; TEMP 36.2; O2SAT 100
--- NOTE | 2021-05-01 15:46 | P.PNIM_ITS ---
Progress Note: A&P Assessment and Plan (1) Encephalopathy: Code(s): G93.40 - Encephalopathy, unspecified Status: Acute Assessment and Plan: Improving. Presented with confusion ongoing for 1 week. Previously with auditory and visual hallucinations that are resolved. Does not exhibit confusion today. * Suspect metabolic encephalopathy given renal failure and hypercalcemia as well as acute infection * Head CT 04/24 reviewed with no acute findings. Repeat head CT 04/26 again no acute findings * Ammonia, B12, and folate wnl. TSH low with normal T4 * Has been seen in consultation by neurology * Pt family denies alcohol use in patient. May have been due to narcotic medications or benzos which have been held. * Monitor mental status closely (2) Hypercalcemia: Code(s): E83.52 - Hypercalcemia Status: Acute Assessment and Plan: Related to excess use of TUMs in the setting of CKD. * Calcium levels have normalized * Avoid TUMs. * Appreciate nephrology consultation * Treated with calcitonin which has since been discontinued * Bone scan performed 04/26 with abnormalities of the hip and lumbar spine; follow-up radiographs with degenerative changes (3) Atrial fibrillation with RVR: Code(s): I48.91 - Unspecified atrial fibrillation Status: Acute Assessment and Plan: Improved. Rate is in 90s today * appreciate cardiology consultation * Continue metoprolol tartrate at increased dose 150 mg bid * Continue Eliquis * Will discontinue telemetry (4) Aspiration pneumonia: Code(s): J69.0 - Pneumonitis due to inhalation of food and vomit Status: Acute Assessment and Plan: Noted to have dyspnea with new onset coarse lung sounds 04/24. * CXR concerning for aspiration pneumonia with increasing opacities in the bilateral mid and lower lung zones * WBC count increased to 17.6 and has now imrpoved * Continue IV Unasyn (Day 7) and Vancomycin (Day 6) * Evidence of aspiration on MBS x2 with recommendations patient remain NPO. He is now more alert and progressing with ST. Previous provider discussed with [employer] and have attempted pureed diet and thickened liquids which he is tolerating. Continue ST and plan for repeat MBS tomorrow. Continuing to limit PO medications until further ST evaluation/recommendations * Aspiration precautions. He needs assistance with all meals and should have small portions with breaks to prevent fatigue * Supportive care including bronchodilators and incentive spirometry * Maintaining adequate oxygenation on room air. Supplemental O2 as needed with goal sat 92% or above (5) Elevated troponin: Code(s): R77.8 - Other specified abnormalities of plasma proteins Status: Acute Assessment and Plan: Elevated with peak up to 0.672. Likely demand ischemia given atrial fibrillation with RVR. Remains asymptomatic. * Appreciate cardiology consultation * Echocardiogram reviewed (6) Chronic kidney disease, stage 4 (severe): Code(s): N18.4 - Chronic kidney disease, stage 4 (severe) Status: Acute Assessment and Plan: He is established with Nephrology. Renal function is consistent with his baseline and has improved throughout admission (Cr 3.0 on arrival improved and stable at 1.8 today). * monitor renal function closely. renally dose medications. * appreciate nephrology consultation (7) Essential (primary) hypertension: Code(s): I10 - Essential (primary) hypertension Status: Acute
--- NOTE | 2021-05-01 15:46 | PM.IMPN ---
Progress Note: A&P Assessment and Plan (1) Encephalopathy: Code(s): G93.40 - Encephalopathy, unspecified Status: Acute Assessment and Plan: Improving. Presented with confusion ongoing for 1 week. Previously with auditory and visual hallucinations that are resolved. Does not exhibit confusion today. Suspect metabolic encephalopathy given renal failure and hypercalcemia as well as acute infection Head CT 04/24 reviewed with no acute findings. Repeat head CT 04/26 again no acute findings Ammonia, B12, and folate wnl. TSH low with normal T4 Has been seen in consultation by neurology Pt family denies alcohol use in patient. May have been due to narcotic medications or benzos which have been held. Monitor mental status closely (2) Hypercalcemia: Code(s): E83.52 - Hypercalcemia Status: Acute Assessment and Plan: Related to excess use of TUMs in the setting of CKD. Calcium levels have normalized Avoid TUMs. Appreciate nephrology consultation Treated with calcitonin which has since been discontinued Bone scan performed 04/26 with abnormalities of the hip and lumbar spine; follow-up radiographs with degenerative changes (3) Atrial fibrillation with RVR: Code(s): I48.91 - Unspecified atrial fibrillation Status: Acute Assessment and Plan: Improved. Rate is in 90s today appreciate cardiology consultation Continue metoprolol tartrate at increased dose 150 mg bid Continue Eliquis Will discontinue telemetry (4) Aspiration pneumonia: Code(s): J69.0 - Pneumonitis due to inhalation of food and vomit Status: Acute Assessment and Plan: Noted to have dyspnea with new onset coarse lung sounds 04/24. CXR concerning for aspiration pneumonia with increasing opacities in the bilateral mid and lower lung zones WBC count increased to 17.6 and has now imrpoved Continue IV Unasyn (Day 7) and Vancomycin (Day 6) Evidence of aspiration on MBS x2 with recommendations patient remain NPO. He is now more alert and progressing with ST. Previous provider discussed with [employer] and have attempted pureed diet and thickened liquids which he is tolerating. Continue ST and plan for repeat MBS tomorrow. Continuing to limit PO medications until further ST evaluation/recommendations Aspiration precautions. He needs assistance with all meals and should have small portions with breaks to prevent fatigue Supportive care including bronchodilators and incentive spirometry Maintaining adequate oxygenation on room air. Supplemental O2 as needed with goal sat 92% or above (5) Elevated troponin: Code(s): R77.8 - Other specified abnormalities of plasma proteins Status: Acute Assessment and Plan: Elevated with peak up to 0.672. Likely demand ischemia given atrial fibrillation with RVR. Remains asymptomatic. Appreciate cardiology consultation Echocardiogram reviewed (6) Chronic kidney disease, stage 4 (severe): Code(s): N18.4 - Chronic kidney disease, stage 4 (severe) Status: Acute Assessment and Plan: He is established with Nephrology. Renal function is consistent with his baseline and has improved throughout admission (Cr 3.0 on arrival improved and stable at 1.8 today). monitor renal function closely. renally dose medications. appreciate nephrology consultation (7) Essential (primary) hypertension: Code(s): I10 - Essential (primary) hypertension Status: Acute Assessment and Plan: Blood pressure had been elevated and are improving today, last 139/73. Continue metoprolol tartrate at increased dose IV hydralazine for systolic BP >160. Limiting oral medications given aspiration. 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
--- NOTE | 2021-05-01 15:59 | PM.PNNEP ---
Progress Note: A&P Assessment and Plan (1) Hypercalcemia: Code(s): E83.52 - Hypercalcemia Status: Acute Assessment and Plan: Resolved Hypernatremia Resolved (2) Elevated troponin: Code(s): R77.8 - Other specified abnormalities of plasma proteins Status: Acute Assessment and Plan: The patient has atrial fibrillation with rapid ventricular rate. This caused a leak of troponin per Cardiology. He looks euvolemic. pulse is good in the 90s. (3) Chronic kidney disease, stage 4 (severe): Code(s): N18.4 - Chronic kidney disease, stage 4 (severe) Status: Acute Assessment and Plan: The patient's creatinine stable. Etiology is diabetes and hypertension. (4) Afib: Code(s): I48.91 - Unspecified atrial fibrillation Status: Acute Assessment and Plan: The patient has AFib . Cardiology Is on the case. He continues on Eliquis shortness of breath: Much improved. (5) Essential (primary) hypertension: Code(s): I10 - Essential (primary) hypertension Status: Acute Assessment and Plan: His blood pressure is doing well. 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 Will give EPO (7) Type 2 diabetes mellitus with diabetic nephropathy: Code(s): E11.21 - Type 2 diabetes mellitus with diabetic nephropathy Status: Acute Assessment and Plan: On meds per hospitalist (8) Aspiration pneumonia: Code(s): J69.0 - Pneumonitis due to inhalation of food and vomit Status: Acute Assessment and Plan: etiology of the swelling issues is unclear. Neurology feels this is generalized weakness he is on antibiotics Subjective Date/time seen: 05/01/21 15:59 Interval history: patient is feeling okay today. in the room. We discussed the case. He is doing well swallowing thickened liquids and pureed diet. Exam Narrative: Exam Narrative: WDWN in NAD skin no rash or subcu nodules head ncat lungs clear today cor irreg no rub or gallop abd BS+ nontender and soft ext no edema. Objective Data Vital Signs Vital Signs: Vital Signs - 24 hr 04/30/21 21:23 04/30/21 22:00 05/01/21 06:00 Temperature 36.4 C 36.5 C Pulse Rate 78 65 93 Respiratory Rate 20 20 Blood Pressure 125/76 139/73 Pulse Oximetry 100 100 05/01/21 09:37 Temperature Pulse Rate 93 Respiratory Rate Blood Pressure Pulse Oximetry Intake/Output Intake/Output: Intake & Output 04/28/21 04/29/21 04/30/21 05/01/21 23:59 23:59 23:59 23:59 Intake Total 1700 4530 2220 840 Output Total 800 1625 1200 800 Balance 900 2905 1020 40 Meds/Results Medications: Active Medications Generic Name Dose Route Start Last Admin Trade Name Freq PRN Reason Stop Dose Admin Acetaminophen 1,000 mg 05/01/21 15:48 Acetaminophen 500 Mg Tablet PO Q6H PRN Pain rated 1 to 5 Or Fever Albuterol 2.5 mg 04/25/21 09:53 Albuterol Sulfate Neb 2.5 Mg/0.5 Ml Inh INHALATION Q6HRT PRN Shortness Of Breath Apixaban 5 mg 04/24/21 17:00 05/01/21 09:38 Apixaban 5 Mg Tablet PO 5 mg BID SHABNAM Administration Aspirin 81 mg 04/24/21 08:00 05/01/21 09:38 Aspirin 81 Mg Chewable Tablet PO 81 mg DAILY@0800 SHABNAM Administration Dextrose 12.5 gm 04/24/21 12:31 Dextrose 50% 25 Gm/50 Ml Syringe IV PUSH PRN PRN Hypoglycemia Protocol Glucagon 1 mg 04/24/21 12:31 Glucagon For Inj 1 Mg Vial IM PRN PRN Hypoglycemia Protocol Glucose 15 gm 04/24/21 12:31 Glucose Oral Gel 15 Gm Of Glucse In 37.5 Gm Tube PO PRN PRN Hypoglycemia Protocol Hydralazine HCl 10 mg 04/28/21 09:20 Hydralazine Hcl 20 Mg/Ml Vial IV PUSH Q8H PRN SBP >160 Dextrose 1,000 mls
[2021-05-01] MEDS: EPOETIN ALFA-EPBX 10,000 UNITS/ML VIAL 10000 UNITS SUB-Q (17:47)
[2021-05-01] MEDS: traMADol HCL (*CRX) 50 MG TABLET PO (17:49)
[2021-05-01 18:31] LABS: Glucose Point of Care 213 mg/dl (65-105)
[2021-05-01] MEDS: INSULIN ASPART (*BKC) 100 UNITS/ML SUB-Q (18:37)
[2021-05-01 20:16] LABS: Glucose Point of Care 187 mg/dl (65-105)
[2021-05-01] MEDS: INSULIN GLARGINE (*BKC) 100 UNITS/ML 35 UNITS SUB-Q (21:54)
[2021-05-01 22:00] VITALS: BP 141/66; PULSE 65; RESP 22; TEMP 36.3; O2SAT 100
[2021-05-02] MEDS: LEVOTHYROXINE SODIUM INJ 100 MCG/5 ML VIAL 88 MCG IV PUSH (05:56)
[2021-05-02 06:00] VITALS: BP 135/73; PULSE 86; RESP 20; TEMP 35.8; O2SAT 100
[2021-05-02 06:46] LABS: Hematocrit 27.2 % (42.0-52.0); Hemoglobin 8.7 g/dL (14.0-18.0); Mean Corpuscular Hemoglobin 28.1 pg (26-34); Mean Corpuscular Volume 87.7 fl (80-100); Mean Platelet Volume 10.8 fl (7.4-10.4); Platelet Count Result 114 k/mm3 (150-375); Red Cell Distribution Width 15.2 % (11.5-14.5); White Blood Count 10.3 K/mm3 (4.5-10.0)
[2021-05-02 06:58] LABS: Alanine Aminotransferase 29 U/L (4-50); Albumin Level 2.9 g/dL (3.5-5.1); Alkaline Phosphatase 64 U/L (38-126); Anion Gap 10 mmol/L (8-16); Aspartate Amino Transferase 47 U/L (17-59); Blood Urea Nitrogen 44 mg/dL (9-20); Calcium 7.9 mg/dL (8.4-10.2); Carbon Dioxide 22 mmol/L (22-30); Chloride 107 mmol/L (98-107); Estimated CRCL calculation 39 ml/min; Estimated Glomerular Filt Rate 37; Glucose 99 mg/dL (65-110); Magnesium 2.1 mg/dL (1.6-2.3); Phosphorus 2.2 mg/dL (2.5-4.5); Potassium 3.5 mmol/L (3.4-5.0); Sodium 139 mmol/L (137-145)
[2021-05-02 08:09] LABS: Glucose Point of Care 97 mg/dl (65-105)
[2021-05-02] MEDS: ASPIRIN 81 MG CHEWABLE TABLET PO (08:18)
[2021-05-02] MEDS: AMPICILLIN SULB 3 GM/NS 100 ML 3 GM/100 ML VIAL IVPB (08:18)
[2021-05-02 08:19] VITALS: PULSE 78
[2021-05-02] MEDS: PANTOPRAZOLE SODIUM IV 40 MG VIAL IV PUSH (08:19)
[2021-05-02] MEDS: APIXABAN 5 MG TABLET PO (08:19)
[2021-05-02] MEDS: METOPROLOL TARTRATE 50 MG TAB 150 MG PO (08:19)
[2021-05-02] MEDS: traMADol HCL (*CRX) 50 MG TABLET PO (08:24)
--- NOTE | 2021-05-02 09:41 | PCOTNOTE ---
attempted therapy session; patient off floor for testing (swallow study); follow up at later time/date as appropriate for OT treatment session
--- NOTE | 2021-05-02 10:35 | PCSTNOTE ---
Repeat MBS completed. Please see ST inpatient evaluation for details and recommendations.
--- NOTE | 2021-05-02 11:31 | PM.PNNEP ---
Progress Note: A&P Assessment and Plan (1) Hypercalcemia: Code(s): E83.52 - Hypercalcemia Status: Acute Assessment and Plan: Resolved Hypernatremia Resolved (2) Elevated troponin: Code(s): R77.8 - Other specified abnormalities of plasma proteins Status: Acute Assessment and Plan: The patient has atrial fibrillation with rapid ventricular rate. This caused a leak of troponin per Cardiology. He looks euvolemic. pulse is good in the 70s (3) Chronic kidney disease, stage 4 (severe): Code(s): N18.4 - Chronic kidney disease, stage 4 (severe) Status: Acute Assessment and Plan: The patient's creatinine stable. Etiology is diabetes and hypertension. (4) Afib: Code(s): I48.91 - Unspecified atrial fibrillation Status: Acute Assessment and Plan: The patient has AFib . Cardiology Is on the case. He continues on Eliquis shortness of breath: breathing comfortably lying flat in bed (5) Essential (primary) hypertension: Code(s): I10 - Essential (primary) hypertension Status: Acute Assessment and Plan: His blood pressure is doing well. 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 Will give EPO (7) Type 2 diabetes mellitus with diabetic nephropathy: Code(s): E11.21 - Type 2 diabetes mellitus with diabetic nephropathy Status: Acute Assessment and Plan: On meds per hospitalist (8) Aspiration pneumonia: Code(s): J69.0 - Pneumonitis due to inhalation of food and vomit Status: Acute Assessment and Plan: etiology of the swelling issues is unclear. Neurology feels this is generalized weakness he is on antibiotics Subjective Date/time seen: 05/02/21 11:31 Interval history: patient is feeling okay today. ate some breakfast. Exam Narrative: Exam Narrative: WDWN in NAD skin no rash or subcu nodules head ncat lungs clear bilaterally cor irreg no rub or gallop abd BS+ nontender and soft ext no edema. Objective Data Vital Signs Vital Signs: Vital Signs - 24 hr 05/01/21 14:00 05/01/21 22:00 05/02/21 06:00 Temperature 36.2 C L 36.3 C L 35.8 C L Pulse Rate 88 65 86 Respiratory Rate 18 22 H 20 Blood Pressure 122/81 141/66 H 135/73 Pulse Oximetry 100 100 100 05/02/21 08:19 Temperature Pulse Rate 78 Respiratory Rate Blood Pressure Pulse Oximetry Intake/Output Intake/Output: Intake & Output 04/29/21 04/30/21 05/01/21 05/02/21 23:59 23:59 23:59 23:59 Intake Total 4530 2220 2210 620 Output Total 1625 1200 1550 600 Balance 2905 1020 660 20 Meds/Results Medications: Active Medications Generic Name Dose Route Start Last Admin Trade Name Freq PRN Reason Stop Dose Admin Acetaminophen 1,000 mg 05/01/21 15:48 05/01/21 21:58 Acetaminophen 500 Mg Tablet PO 1,000 mg Q6H PRN Administration Pain rated 1 to 5 Or Fever Albuterol 2.5 mg 04/25/21 09:53 Albuterol Sulfate Neb 2.5 Mg/0.5 Ml Inh INHALATION Q6HRT PRN Shortness Of Breath Apixaban 5 mg 04/24/21 17:00 05/02/21 08:19 Apixaban 5 Mg Tablet PO 5 mg BID SHABNAM Administration Aspirin 81 mg 04/24/21 08:00 05/02/21 08:18 Aspirin 81 Mg Chewable Tablet PO 81 mg DAILY@0800 SHABNAM Administration Dextrose 12.5 gm 04/24/21 12:31 Dextrose 50% 25 Gm/50 Ml Syringe IV PUSH PRN PRN Hypoglycemia Protocol Epoetin Harman-epbx 10,000 units 05/01/21 16:05 05/01/21 17:47 Epoetin Harman-Epbx 10,000 Units/Ml Vial SUB-Q 10,000 units TuThSa@0900 SHABNAM Administration Glucagon 1 mg 04/24/21 12:31 Glucagon For Inj 1 Mg Vial IM PRN PRN Hypoglycemia Protocol Glucose 15 gm 04/24/21 12:31 Glucose Oral Gel 15 Gm Of Glucse In 37.5 Gm Tube PO PRN P
[2021-05-02 11:35] LABS: Vancomycin Trough 17.1 ug/mL (10.0-20.0)
[2021-05-02 12:05] LABS: Glucose Point of Care 239 mg/dl (65-105)
[2021-05-02] MEDS: INSULIN ASPART (*BKC) 100 UNITS/ML SUB-Q (12:05)
[2021-05-02 14:00] VITALS: BP 132/66; PULSE 64; RESP 16; TEMP 36.4; O2SAT 100
--- NOTE | 2021-05-02 14:02 | PCOTNOTE ---
Attempted therapy session; patient declined all therapeutic attempts this afternoon and verbalized he needed to rest ; attempt OT treatment session as appropriate
--- NOTE | 2021-05-02 17:19 | P.PNIM_ITS ---
Progress Note: A&P Assessment and Plan (1) Encephalopathy: Code(s): G93.40 - Encephalopathy, unspecified Status: Acute Assessment and Plan: Improving. Presented with confusion ongoing for 1 week. Previously with auditory and visual hallucinations that are resolved. Does not exhibit confusion today. * Suspect metabolic encephalopathy given renal failure and hypercalcemia as well as acute infection * Head CT 04/24 reviewed with no acute findings. Repeat head CT 04/26 again no acute findings * Ammonia, B12, and folate wnl. TSH low with normal T4 * Has been seen in consultation by neurology * Pt family denies alcohol use in patient. May have been due to narcotic medications or benzos which have been held. * Monitor mental status closely (2) Hypercalcemia: Code(s): E83.52 - Hypercalcemia Status: Acute Assessment and Plan: Related to excess use of TUMs in the setting of CKD. * Calcium levels have normalized, and now actually a little low at 7.9 * Avoid TUMs. * Appreciate nephrology consultation * Treated with calcitonin which has since been discontinued * Bone scan performed 04/26 with abnormalities of the hip and lumbar spine; follow-up radiographs with degenerative changes (3) Dysphagia: Code(s): R13.10 - Dysphagia, unspecified Status: Acute Assessment and Plan: Failed MBS x3 with silent aspiration. Etiology for this is unclear * Will make NPO * Consult to GI. Consider motility study vs EGD to evaluate dysphagia * Begin PPN with Clinimix * Continue with speech therapy * Aspiration precautions * Please see subjective for further details (4) Atrial fibrillation with RVR: Code(s): I48.91 - Unspecified atrial fibrillation Status: Acute Assessment and Plan: Improved. Rate is in 70-80s today * Appreciate cardiology consultation * Stop PO metoprolol. Will begin IV metoprolol 5 mg q4h prn rate >110. * Will await further cardiology recommendations for rate control * Hold Eliquis. Begin IV heparin drip. (5) Aspiration pneumonia: Code(s): J69.0 - Pneumonitis due to inhalation of food and vomit Status: Acute Assessment and Plan: Noted to have dyspnea with new onset coarse lung sounds 04/24. * CXR concerning for aspiration pneumonia with increasing opacities in the bilateral mid and lower lung zones * WBC count increased to 17.6 and has now improved * Will discontinue IV Unasyn and vancomycin as he has completed a 7 day course * Supportive care including bronchodilators and incentive spirometry * Maintaining adequate oxygenation on room air. Supplemental O2 as needed with goal sat 92% or above (6) Elevated troponin: Code(s): R77.8 - Other specified abnormalities of plasma proteins Status: Acute Assessment and Plan: Elevated with peak up to 0.672. Likely demand ischemia given atrial fibrillation with RVR. Remains asymptomatic. * Appreciate cardiology consultation * Echocardiogram reviewed (7) Chronic kidney disease, stage 4 (severe): Code(s): N18.4 - Chronic kidney disease, stage 4 (severe) Status: Acute Assessment and Plan: He is established with Nephrology. Renal function is consistent with his baseline and has improved throughout admission (Cr 3.0 on arrival improved and stable at 1.8 today). * monitor renal function closely. renally dose medications. * appreciate nephrology consultation (8) Essential (primary) hypertension: Code
--- NOTE | 2021-05-02 17:19 | PM.IMPN ---
Progress Note: A&P Assessment and Plan (1) Encephalopathy: Code(s): G93.40 - Encephalopathy, unspecified Status: Acute Assessment and Plan: Improving. Presented with confusion ongoing for 1 week. Previously with auditory and visual hallucinations that are resolved. Does not exhibit confusion today. Suspect metabolic encephalopathy given renal failure and hypercalcemia as well as acute infection Head CT 04/24 reviewed with no acute findings. Repeat head CT 04/26 again no acute findings Ammonia, B12, and folate wnl. TSH low with normal T4 Has been seen in consultation by neurology Pt family denies alcohol use in patient. May have been due to narcotic medications or benzos which have been held. Monitor mental status closely (2) Hypercalcemia: Code(s): E83.52 - Hypercalcemia Status: Acute Assessment and Plan: Related to excess use of TUMs in the setting of CKD. Calcium levels have normalized, and now actually a little low at 7.9 Avoid TUMs. Appreciate nephrology consultation Treated with calcitonin which has since been discontinued Bone scan performed 04/26 with abnormalities of the hip and lumbar spine; follow-up radiographs with degenerative changes (3) Dysphagia: Code(s): R13.10 - Dysphagia, unspecified Status: Acute Assessment and Plan: Failed MBS x3 with silent aspiration. Etiology for this is unclear Will make NPO Consult to GI. Consider motility study vs EGD to evaluate dysphagia Begin PPN with [employer] Continue with speech therapy Aspiration precautions Please see subjective for further details (4) Atrial fibrillation with RVR: Code(s): I48.91 - Unspecified atrial fibrillation Status: Acute Assessment and Plan: Improved. Rate is in 70-80s today Appreciate cardiology consultation Stop PO metoprolol. Will begin IV metoprolol 5 mg q4h prn rate >110. Will await further cardiology recommendations for rate control Hold Eliquis. Begin IV heparin drip. (5) Aspiration pneumonia: Code(s): J69.0 - Pneumonitis due to inhalation of food and vomit Status: Acute Assessment and Plan: Noted to have dyspnea with new onset coarse lung sounds 04/24. CXR concerning for aspiration pneumonia with increasing opacities in the bilateral mid and lower lung zones WBC count increased to 17.6 and has now improved Will discontinue IV Unasyn and vancomycin as he has completed a 7 day course Supportive care including bronchodilators and incentive spirometry Maintaining adequate oxygenation on room air. Supplemental O2 as needed with goal sat 92% or above (6) Elevated troponin: Code(s): R77.8 - Other specified abnormalities of plasma proteins Status: Acute Assessment and Plan: Elevated with peak up to 0.672. Likely demand ischemia given atrial fibrillation with RVR. Remains asymptomatic. Appreciate cardiology consultation Echocardiogram reviewed (7) Chronic kidney disease, stage 4 (severe): Code(s): N18.4 - Chronic kidney disease, stage 4 (severe) Status: Acute Assessment and Plan: He is established with Nephrology. Renal function is consistent with his baseline and has improved throughout admission (Cr 3.0 on arrival improved and stable at 1.8 today). monitor renal function closely. renally dose medications. appreciate nephrology consultation (8) Essential (primary) hypertension: Code(s): I10 - Essential (primary) hypertension Status: Acute Assessment and Plan: Blood pressure had been elevated and are improving today, last 135/73 IV hydralazine for systolic BP >160. Limiting oral medications given aspiration. Resume PO antihypertensives when clinically appropriate Monitor BP trends (9) Type 2 diabetes mellitus with diabetic nephropathy: Code(s): E11.21 - Type 2 diabetes mellitus with diabetic nephro
[2021-05-02] MEDS: MORPHINE SULFATE (*CRX) 2 MG/ML INJ IV PUSH ×2 (18:04→22:14)
[2021-05-02 18:16] LABS: Glucose Point of Care 118 mg/dl (65-105)
[2021-05-02 19:08] LABS: Basophils Percent Auto 0.2 % (0.2-1.2); Eosinophils Absolute Auto 0.3 K/mm3 (0-0.3); Eosinophils Percent Auto 3.1 % (0-4.4); Hematocrit 26.3 % (42.0-52.0); Hemoglobin 8.4 g/dL (14.0-18.0); Immature Granulocyte Absolute 0.06 K/mm3 (0.00-0.031); Immature Granulocyte Percent A 0.6 % (0-0.5); Lymphocytes Absolute Auto 1.58 K/mm3 (0.9-3.2); Lymphocytes Percent Auto 16.1 % (18.3-44.2); Mean Corpuscular HGB Conc 31.9 g/dl (32-36); Mean Corpuscular Volume 87.7 fl (80-100); Mean Platelet Volume 11.1 fl (7.4-10.4); Monocytes Absolute Auto 0.8 K/mm3 (0.1-0.6); Neutrophils Absolute Auto 7.1 K/mm3 (1.3-6.7); Platelet Count Result 114 k/mm3 (150-375); Red Cell Distribution Width 15.2 % (11.5-14.5); White Blood Count 9.8 K/mm3 (4.5-10.0)
[2021-05-02 19:20] LABS: Alanine Aminotransferase 34 U/L (4-50); Alkaline Phosphatase 64 U/L (38-126); Anion Gap 9 mmol/L (8-16); Aspartate Amino Transferase 52 U/L (17-59); Bilirubin,Total 0.8 mg/dL (0.2-1.3); Blood Urea Nitrogen 40 mg/dL (9-20); Calcium 7.8 mg/dL (8.4-10.2); Carbon Dioxide 24 mmol/L (22-30); Chloride 106 mmol/L (98-107); Estimated CRCL calculation 39 ml/min; Estimated Glomerular Filt Rate 37; Glucose 111 mg/dL (65-110); Magnesium 2.2 mg/dL (1.6-2.3); Potassium 3.5 mmol/L (3.4-5.0); Sodium 139 mmol/L (137-145)
[2021-05-02 19:21] LABS: INR 1.6; Prothrombin Time 18.9 Seconds (11.1-14.7)
[2021-05-02 19:22] LABS: Partial Thromboplastin Time 31.7 SECONDS (22.3-36.8)
[2021-05-02 19:27] LABS: Transferrin 188 mg/dL (206-381)
[2021-05-02] MEDS: HEPARIN SODIUM 5,000 UNITS/ML VIAL 6500 UNITS IV PUSH (21:54)
[2021-05-02 22:00] VITALS: BP 143/62; PULSE 68; RESP 20; TEMP 36.3; O2SAT 100
[2021-05-02] MEDS: HEPARIN SOD/D5W 100 UNITS/ML 25,000 UNITS/250 ML BAG 14 UNITS IV CONT (22:01)
[2021-05-02] MEDS: INSULIN GLARGINE (*BKC) 100 UNITS/ML 35 UNITS SUB-Q (22:05)
[2021-05-02] MEDS: FAT EMULSIONS IV 20% 250 ML 20.83 ML IVPB (22:06)
[2021-05-02] MEDS: AMINO ACIDS 4.25%/D5W/LYTES/CA 2,000 ML 80 ML IV CONT (22:07)
[2021-05-03] VITALS (7 sets, daily range): BP systolic 112–157; BP diastolic 36–115; PULSE 80–128; RESP 16–22; TEMP 36.2–36.8; O2SAT 97–100
[2021-05-03 03:01] LABS: Aldolase 14.2 U/L (<=8.1)
[2021-05-03 03:03] LABS: Glucose Point of Care 109 mg/dl (65-105)
[2021-05-03] MEDS: MORPHINE SULFATE (*CRX) 2 MG/ML INJ IV PUSH ×2 (05:03→09:07)
[2021-05-03] MEDS: LEVOTHYROXINE SODIUM INJ 100 MCG/5 ML VIAL 88 MCG IV PUSH (05:08)
[2021-05-03 05:18] LABS: Basophils Percent Auto 0.3 % (0.2-1.2); Eosinophils Absolute Auto 0.2 K/mm3 (0-0.3); Eosinophils Percent Auto 2.4 % (0-4.4); Hematocrit 27.7 % (42.0-52.0); Hemoglobin 8.9 g/dL (14.0-18.0); Immature Granulocyte Absolute 0.09 K/mm3 (0.00-0.031); Immature Granulocyte Percent A 0.9 % (0-0.5); Lymphocytes Absolute Auto 1.47 K/mm3 (0.9-3.2); Lymphocytes Percent Auto 14.5 % (18.3-44.2); Mean Corpuscular HGB Conc 32.1 g/dl (32-36); Mean Corpuscular Hemoglobin 28.3 pg (26-34); Mean Corpuscular Volume 87.9 fl (80-100); Mean Platelet Volume 11.6 fl (7.4-10.4); Monocytes Absolute Auto 0.7 K/mm3 (0.1-0.6); Monocytes Percent Auto 7.3 % (2.6-8.5); Neutrophils Absolute Auto 7.6 K/mm3 (1.3-6.7); Neutrophils Percent Auto 74.6 % (45.5-73.1); Platelet Count Result 116 k/mm3 (150-375); Red Blood Count 3.15 M/mm3 (4.6-6.20); Red Cell Distribution Width 15.3 % (11.5-14.5); White Blood Count 10.2 K/mm3 (4.5-10.0)
[2021-05-03 05:21] LABS: Albumin 71 %; Creat 24 Hr 0.64 g/24 h (0.50-2.15); Measured Kappa Chains 4.53 mg/dL (<2.00); Measured Lambda Chains 2.99 mg/dL (<2.00); Pro/Creat Ratio 2032 mg/g creat (<=114); Total Kappa Chains 38.505 mg/24 h; Total Lambda Chains 25.415 mg/24 h
[2021-05-03 05:27] LABS: Alanine Aminotransferase 31 U/L (4-50); Alkaline Phosphatase 69 U/L (38-126); Anion Gap 9 mmol/L (8-16); Aspartate Amino Transferase 46 U/L (17-59); Bilirubin,Total 0.8 mg/dL (0.2-1.3); Blood Urea Nitrogen 37 mg/dL (9-20); Calcium 7.8 mg/dL (8.4-10.2); Carbon Dioxide 23 mmol/L (22-30); Chloride 108 mmol/L (98-107); Estimated CRCL calculation 39 ml/min; Estimated Glomerular Filt Rate 37; Glucose 176 mg/dL (65-110); Magnesium 2.2 mg/dL (1.6-2.3); Phosphorus 2.3 mg/dL (2.5-4.5); Potassium 3.6 mmol/L (3.4-5.0); Sodium 140 mmol/L (137-145)
[2021-05-03 05:35] LABS: Partial Thromboplastin Time 150.6 SECONDS (22.3-36.8)
[2021-05-03 06:26] LABS: Glucose Point of Care 171 mg/dl (65-105)
--- NOTE | 2021-05-03 08:30 | WPDNEUROPN ---
Progress Note: A&P Additional Plan will benefit from EMG nerve conduction study , his spinal fluid studies but patient is on apixaban I will consider to do the EMG nerve conduction study 1st and further recommendation according Review of Systems Review of Systems: All systems reviewed & are unremarkable except as noted in HPI and below Exam Narrative: remains awake alert cooperative in no obvious acute distress speech nor dysphasic no dysarthric not dysphonic head normocephalic with no cranial bruit ear nose throat examination normal neck is supple with no bruit no meningeal signs heart is regular lungs clear abdomen is soft neurologically he is awake alert recognizes the physician is speech nor dysphasic no dysarthric not dysphonic pupils round regular feels the vision full extraocular full face symmetrical tongue midline motor examination revealed him to have decreased strength in upper and lower extremities symmetrical reflexes downgoing plantar responses Objective Data Vital Signs Vital Signs: Vital Signs - 24 hr 05/02/21 14:00 05/02/21 22:00 05/03/21 05:51 Temperature 36.4 C L 36.3 C L 36.2 C L Pulse Rate 64 68 80 Respiratory Rate 16 20 18 Blood Pressure 132/66 143/62 H 128/69 Pulse Oximetry 100 100 100 Intake/Output Intake/Output: Intake & Output 04/30/21 05/01/21 05/02/21 05/03/21 23:59 23:59 23:59 23:59 Intake Total 2220 2210 1480 Output Total 1200 1550 1300 650 Balance 1020 660 180 -650 Meds/Results Medications: Active Medications Generic Name Dose Route Start Last Admin Trade Name Freq PRN Reason Stop Dose Admin Albuterol 2.5 mg 04/25/21 09:53 Albuterol Sulfate Neb 2.5 Mg/0.5 Ml Inh INHALATION Q6HRT PRN Shortness Of Breath Aspirin 81 mg 04/24/21 08:00 05/02/21 08:18 Aspirin 81 Mg Chewable Tablet PO 81 mg DAILY@0800 [facility] [place] Administration Dextrose 12.5 gm 04/24/21 12:31 Dextrose 50% 25 Gm/50 Ml Syringe IV PUSH PRN PRN Hypoglycemia Protocol Epoetin Harman-epbx 10,000 units 05/01/21 16:05 05/01/21 17:47 Epoetin Harman-Epbx 10,000 Units/Ml Vial SUB-Q 10,000 units TuThSa@0900 [facility] Administration Glucagon 1 mg 04/24/21 12:31 Glucagon For Inj 1 Mg Vial IM PRN PRN Hypoglycemia Protocol Glucose 15 gm 04/24/21 12:31 Glucose Oral Gel 15 Gm Of Glucse In 37.5 Gm Tube PO PRN PRN Hypoglycemia Protocol Heparin Sodium (Porcine) 6,500 units 05/02/21 18:31 Heparin Sodium 5,000 Units/Ml Vial IV PUSH PRN PRN aPTT less than 55 seconds Heparin Sodium (Porcine) 3,000 units 05/02/21 18:31 Heparin Sodium 5,000 Units/Ml Vial IV PUSH PRN PRN aPTT 55 - 70 seconds Hydralazine HCl 10 mg 04/28/21 09:20 Hydralazine Hcl 20 Mg/Ml Vial IV PUSH Q8H PRN SBP >160 Dextrose 1,000 mls @ 100 mls/hr 04/24/21 12:31 Dextrose 5% 1,000 Ml IVPB PRN PRN Hypoglycemia Protocol Dextrose 1,000 mls @ 50 mls/hr 04/28/21 09:04 Dextrose 10% IV CONT .Q20H PRN if PN is interrupted Acetaminophen 1,000 mg in 100 mls @ 400 mls/hr 05/02/21 17:37 Ofirmev 1,000 Mg Ivpb IVPB 05/03/21 17:38 Q6H PRN Pain Rated 1-6 Dextrose 1,000 mls @ 50 mls/hr 05/02/21 17:44 Dextrose 10% IV CONT .Q20H PRN if PN is interrupted Amino Acids/Electrolytes/Dextrose 2,000 mls @ 80 mls/hr 05/02/21 19:00 05/02/21 22:07 Clinimix E 4.25%/5% Solution IV CONT 80 mls/hr .Q24H SHABNAM Administration Protocol Fat Emulsion Intravenous 250 mls @ 20.833 mls/hr 05/02/21 19:00 05/02/21 22:06 Lipids 20% IVPB 20.83 mls/hr Q24H SHABNAM Administration Heparin Sodium/Dextrose 25,000 units in 250 mls @ 12 mls/hr 05/02/21 18:40 05/03/21 06:41 Heparin Sodium/D5w 100 Units/Ml IV CONT 1,200 units/hr .[id number] SHABNAM 12 mls/hr Titration Protocol 1,200 UNITS/HR Insulin Aspart 4 - 8 units 05/01/21 17:00 05/02/21 18:15 Insulin Aspart (*[facility]) 100 Un
[2021-05-03] MEDS: PANTOPRAZOLE SODIUM IV 40 MG VIAL IV PUSH ×2 (09:07→20:52)
[2021-05-03 10:15] LABS: Partial Thromboplastin Time 54.7 SECONDS (22.3-36.8)
--- NOTE | 2021-05-03 11:21 | PM.PNNEP ---
Progress Note: A&P Assessment and Plan (1) Hypercalcemia: Code(s): E83.52 - Hypercalcemia Status: Acute Assessment and Plan: Resolved Hypernatremia Resolved (2) Elevated troponin: Code(s): R77.8 - Other specified abnormalities of plasma proteins Status: Acute Assessment and Plan: The patient has atrial fibrillation with rapid ventricular rate. This caused a leak of troponin per Cardiology. He looks euvolemic. pulse is good 60 to 80 (3) Chronic kidney disease, stage 4 (severe): Code(s): N18.4 - Chronic kidney disease, stage 4 (severe) Status: Acute Assessment and Plan: The patient's creatinine stable. Etiology is diabetes and hypertension. (4) Afib: Code(s): I48.91 - Unspecified atrial fibrillation Status: Acute Assessment and Plan: The patient has AFib . Cardiology Is on the case. He continues on Eliquis shortness of breath: breathing comfortably now. (5) Essential (primary) hypertension: Code(s): I10 - Essential (primary) hypertension Status: Acute Assessment and Plan: His blood pressure is doing well. 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 On EPO (7) Type 2 diabetes mellitus with diabetic nephropathy: Code(s): E11.21 - Type 2 diabetes mellitus with diabetic nephropathy Status: Acute Assessment and Plan: On meds per hospitalist (8) Aspiration pneumonia: Code(s): J69.0 - Pneumonitis due to inhalation of food and vomit Status: Acute Assessment and Plan: etiology of the swelling issues is unclear. Neurology feels this is generalized weakness he is on antibiotics Subjective Date/time seen: 05/03/21 11:21 Interval history: patient is feeling okay today. ate some breakfast. eager for discharge. Exam Narrative: WDWN in NAD skin no rash or subcu nodules head ncat lungs clear to auscultation cor irreg no rub or gallop abd BS+ nontender and soft ext no edema Or cyanosis. Objective Data Vital Signs Vital Signs: Vital Signs - 24 hr 05/02/21 14:00 05/02/21 22:00 05/03/21 05:51 Temperature 36.4 C L 36.3 C L 36.2 C L Pulse Rate 64 68 80 Respiratory Rate 16 20 18 Blood Pressure 132/66 143/62 H 128/69 Pulse Oximetry 100 100 100 Intake/Output Intake/Output: Intake & Output 04/30/21 05/01/21 05/02/21 05/03/21 23:59 23:59 23:59 23:59 Intake Total 2220 2210 1480 Output Total 1200 1550 1300 650 Balance 1020 660 180 -650 Meds/Results Medications: Active Medications Generic Name Dose Route Start Last Admin Trade Name Freq PRN Reason Stop Dose Admin Albuterol 2.5 mg 04/25/21 09:53 Albuterol Sulfate Neb 2.5 Mg/0.5 Ml Inh INHALATION Q6HRT PRN Shortness Of Breath Aspirin 81 mg 04/24/21 08:00 05/02/21 08:18 Aspirin 81 Mg Chewable Tablet PO 81 mg DAILY@0800 [facility] Administration Dextrose 12.5 gm 04/24/21 12:31 Dextrose 50% 25 Gm/50 Ml Syringe IV PUSH PRN PRN Hypoglycemia Protocol Epoetin Harman-epbx 10,000 units 05/01/21 16:05 05/01/21 17:47 Epoetin Harman-Epbx 10,000 Units/Ml Vial SUB-Q 10,000 units TuThSa@0900 [facility] Administration Glucagon 1 mg 04/24/21 12:31 Glucagon For Inj 1 Mg Vial IM PRN PRN Hypoglycemia Protocol Glucose 15 gm 04/24/21 12:31 Glucose Oral Gel 15 Gm Of Glucse In 37.5 Gm Tube PO PRN PRN Hypoglycemia Protocol Heparin Sodium (Porcine) 6,500 units 05/02/21 18:31 Heparin Sodium 5,000 Units/Ml Vial IV PUSH PRN PRN aPTT less than 55 seconds Heparin Sodium (Porcine) 3,000 units 05/02/21 18:31 Heparin Sodium 5,000 Units/Ml Vial IV PUSH PRN PRN aPTT 55 - 70 seconds Hydralazine HCl 10 mg 04/28/21 09:20 Hy
[2021-05-03 11:38] LABS: Glucose Point of Care 185 mg/dl (65-105)
--- NOTE | 2021-05-03 12:33 | PCNFU ---
Nutrition Follow-Up Complete: Involuntary weight loss related to multiple medical issues, including indigestion, as evidenced by documented 10% weight loss x 7 months without trying. Goal: Patient to consume 50% of meals/supplements or greater. Patient is not able to achieve current goal due to NPO status. Will continue to work towards new goal of meeting estimated nutritional needs. Pt current nutrition is Clinimix PN at 80 mL/hr providing 1,153 kcals, 82 gm protein, and 2,170 mL free water. Patient failed MBS. MD discussed tube feedings and PN with family. Currently on PN. Last recorded weight is 105.7 kg. Bowel Motility: Last BM: 05/02 x2 Labs Reviewed: Hgb 8.9, Hct 27.7, Alb 3.0, Na 140, K 3.6, GFR 37, BUN 37, Cr 1.8, Glu 176 Meds Noted: Acetaminophen, Albuterol, Clinimix E 4.25%/5% solution at 80 mL/hr, Aspirin, Fat Emulsion 20%, Heparin, Novolog, Lantus, Synthroid, Lopressor, Morphine, Zofran, Protonix. Additional Notes: Patient recently started on PN. Patient family to discuss goals of care. 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 No skin break downs. At this time, will continue with PN. Recommend replacing phosphorus level and monitor electrolytes. Follow up every Friday and Friday.
[2021-05-03] MEDS: EPOETIN ALFA-EPBX 10,000 UNITS/ML VIAL 10000 UNITS SUB-Q (12:42)
--- NOTE | 2021-05-03 12:54 | WPDGICN ---
Assessment and Plan Assessment and plan (1) Dysphagia: Code(s): R13.10 - Dysphagia, unspecified Status: Acute Assessment and Plan: Based on what we know so far, it appears that this is possibly a neurologic dysphagia with oropharyngeal dysfunction. Structural abnormalities need to be ruled out. He will have EGD later today. I discussed the procedure and risks with the patient, such as the possibilities of bleeding or perforation. (2) Encephalopathy: Code(s): G93.40 - Encephalopathy, unspecified Status: Acute Assessment and Plan: This is apparently and hopefully a temporary situation which is already resolving. CT of the head x2 has been negative (3) Atrial fibrillation with RVR: Code(s): I48.91 - Unspecified atrial fibrillation Status: Acute Assessment and Plan: apixaban has been held. He is now on heparin drip. We will need to hold that for 4 hours prior to the EGD (4) Anemia: Code(s): D64.9 - Anemia, unspecified Status: Acute Assessment and Plan: this is likely chronic, multifactorial, particularly in view of his chronic kidney disease. I doubt there is an active blood loss. He had an EGD and colonoscopy 1 year ago that revealed 3 polyps that were removed from his ascending colon. He also had a hiatal hernia with Savage erosions. Additional Plan At this point in appears that he will not need a feeding tube. Hopefully with speech therapy he will regain ability to swallow GI Consult Note Consult date/time: 05/03/21 12:54 HPI: Ramin Colon is a 70 year old male Who was admitted here about 8 days ago. He came in with confusion thought to be due to a metabolic encephalopathy. He also had renal impairment. CT scan of the head was normal. He did have an elevated calcium which was thought to be part of the problem. He was found to be having difficulty swallowing and has pneumonitis due to aspiration. He was investigated with modified barium swallow . He was found have reduced laryngeal closure and risk of aspiration. Was recommended that he be kept NPO. The patient tells me that he did not have difficulty swallowing prior to admission. He thinks that his problem is with solids and liquids equally. He is hoping that he will be able to eat again soon. He denies abdominal pain nausea vomiting or weight loss. 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, rate of 40's since ablation, HR 88 today Chronic kidney disease, stage 4 (severe) Constipation End stage renal disease being monitored per Dr Lei; no dialysis at present time Erythropoietin-resistant anemia Essential (primary) hypertension Polyp, 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 Family History Family History Father Heart disease Social History Social History Smoking packs per day: 1 Smoking cigarettes per day: 20.0 Years smoked: 20 Smoking pack-years: 20.00 Smoking status: Former smoker Alcohol intake: current Substance use: current Substance use type: does not use Gender identity (if verbalized by the patient): Male Spiritual care concerns: No Meds Home Medications and Allergies Home Medications Medication Instructions Recorded Confirmed Type apixaban 5 mg tablet 5 mg PO BID 03/27/20 04/24/21 History metoclopramide HCl 5 mg tablet 5 mg PO .prn PRN tablet 03/27/20 04/24/21 History ondansetron HCl 4 mg tablet 4 mg PO Q8H PRN 03/27/20 04/24/21 History rosuvastatin 20 mg tablet 20 mg PO DAILY 03/27/20 04/24/21 History cholecalciferol (vitamin
--- NOTE | 2021-05-03 12:58 | PCNSR ---
On 05/03/21, the student, Azucena Rodriguez, provided care and completed [employer] hospital documentation on this patient. I have reviewed the student's documentation and agree with the findings.
[2021-05-03 13:33] LABS: Glucose Point of Care 182 mg/dl (65-105)
[2021-05-03] MEDS: LACTATED RINGERS 1,000 ML 150 ML IV CONT (13:50)
--- NOTE | 2021-05-03 13:53 | WPDANESEPPF ---
Anes - Initial Pre Proc Eval Procedure: Operation Date: 05/03/21 11:30 Proposed Procedures p Esophagogastroduodenoscopy - aYmil Sutton MD Date/Time: 05/03/21 13:53 Surgeon: ILIA Kent Pre Op Diagnosis: Hypercalcemia,Elevated Troponin,Acute Kidney Injur Patient Data Age: 70 Gender: M Height: 1.7 m Weight: 105.7 kg Last Vital Signs Temp 97.3 F L 05/03/21 13:40 Pulse 93 05/03/21 13:40 Resp 18 05/03/21 13:40 BP 157/81 H 05/03/21 13:40 Pulse Ox 100 05/03/21 13:40 Allergies Allergy/AdvReac Type Severity Reaction Status Date / Time chlordiazepoxide Allergy Mild Confusion Verified 05/03/21 13:32 clarithromycin Allergy Mild Unknown Verified 05/03/21 13:32 Home Medications Medication Instructions Recorded Confirmed Type apixaban 5 mg tablet 5 mg PO BID 03/27/20 04/24/21 History metoclopramide HCl 5 mg tablet 5 mg PO .prn PRN tablet 03/27/20 04/24/21 History ondansetron HCl 4 mg tablet 4 mg PO Q8H PRN 03/27/20 04/24/21 History rosuvastatin 20 mg tablet 20 mg PO DAILY 03/27/20 04/24/21 History cholecalciferol (vitamin D3) 1,000 unit PO DAILY 04/05/20 04/24/21 History [Vitamin D3] ferrous sulfate 27 mg PO TID 04/05/20 04/24/21 History hydralazine 75 mg PO TID 04/05/20 04/26/21 History insulin aspart U-100 [Novolog 1 sliding scale dose SUBCUT 04/05/20 04/24/21 History U-100 Insulin aspart] USEASDIRECTD levothyroxine 175 mcg PO DAILY 04/05/20 04/24/21 History tizanidine 4 mg PO QID 04/05/20 04/24/21 History polyethylene glycol 3350 17 17 g PO DAILY PRN #510 g 10/03/20 04/24/21 Rx gram/dose oral powder alprazolam 1 mg PO HS 04/24/21 04/24/21 History docusate sodium [Colace] 100 mg PO TID 04/24/21 04/24/21 History insulin degludec [Tresiba 40 unit SUBCUT HS 04/24/21 04/24/21 History FlexTouch U-100] pantoprazole 40 mg PO DAILY 04/24/21 04/24/21 History acetaminophen-codeine 1 - 2 tablet PO Q4-6H PRN 04/26/21 04/26/21 History furosemide 80 mg PO DAILY 04/26/21 04/26/21 History Laboratory Tests 04/27/21 04/28/21 05/02/21 10:09 06:40 18:13 WBC RBC Hgb Hct MCV MCH MCHC RDW Plt Count MPV Immature Gran % (Auto) Neut % (Auto) Lymph % (Auto) Esmeralda % (Auto) Eos % (Auto) Baso % (Auto) Lymph # (Auto) Esmeralda # (Auto) Eos # (Auto) Baso # (Auto) Abs Immat Gran (auto) Absolute Neuts (auto) Absolute Nucleated RBC Nucleated RBC % PT INR APTT Sodium Potassium Chloride Carbon Dioxide Anion Gap BUN Creatinine Estim Creat Clear Calc Estimated GFR Glucose POC Capillary Glucose 118 mg/dl H mg/dl (65-105) Calcium Phosphorus Magnesium Transferrin Total Bilirubin AST ALT Alkaline Phosphatase Total Protein Albumin Aldolase 14.2 U/L H U/L (<=8.1) Ur 24 Hour Volume 850 mL mL U [place]n [place] 24hr 4.53 mg/dL H mg/dL (<2.00) U Tot [place] 24h 38.505 mg/24 h mg/24 h U Lambda Chn [place] 24h 2.99 mg/dL H mg/dL (<2.00) U Tot Lambda Light 24h 25.415 mg/24 h mg/24 h 05/02/21 05/02/21 05/02/21 18:53 18:53 18:53 WBC 9.8 K/mm3 K/mm3 (4.5-10.0) RBC 3.00 M/mm3 L M/mm3 (4.6-6.20) Hgb 8.4 g/dL L g/dL (14.0-18.0) Hct 26.3 % L % (42.0-52.0) MCV 87.7 fl fl (80-100) MCH 28.0 pg pg (26-34) MCHC 31.9 g/dl L g/dl (32-36) RDW 15.2 % H % (11.5-14.5) Plt Count 114
[2021-05-03 14:41] LABS: Glucose Point of Care 153 mg/dl (65-105)
--- NOTE | 2021-05-03 16:22 | P.PNIM_ITS ---
Progress Note: A&P Assessment and Plan (1) Encephalopathy: Code(s): G93.40 - Encephalopathy, unspecified Status: Acute Assessment and Plan: Improving. Presented with confusion ongoing for 1 week prior to arrival. Previously with auditory and visual hallucinations that are resolved. Does not exhibit confusion today. * Suspect metabolic encephalopathy given renal failure and hypercalcemia as well as acute infection * Head CT 04/24 reviewed with no acute findings. Repeat head CT 04/26 again no acute findings * Ammonia, B12, and folate wnl. TSH low with normal T4 * Has been seen in consultation by neurology * Monitor mental status closely. (2) Hypercalcemia: Code(s): E83.52 - Hypercalcemia Status: Resolved Assessment and Plan: * Related to excess use of TUMs in the setting of CKD. * Calcium levels have normalized. Avoid TUMs. * Appreciate nephrology consultation * Treated with calcitonin which has since been discontinued * Bone scan performed 04/26 with abnormalities of the hip and lumbar spine; f ollow-up radiographs with degenerative changes (3) Dysphagia: Code(s): R13.10 - Dysphagia, unspecified Status: Acute Assessment and Plan: * Failed MBS x3 with silent aspiration. Etiology for this is unclear. Appears of neurogenic etiology as no structural causes were identified on EGD today. * NPO. * Appreciate GI input - may need to discuss possibility of G tube placement if he does not progress with speech therapy. * Continue PPN with Clinimix * Continue with speech therapy * Aspiration precautions (4) Atrial fibrillation with RVR: Code(s): I48.91 - Unspecified atrial fibrillation Status: Acute Assessment and Plan: * Improved; rates elevated this afternoon may be related to back pain. Appreciate cardiology input. * PO metoprolol held due to NPO status. IV metoprolol 5 mg q4h available PRN rate >110. 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 Since his EGD is complete, will switch from heparin gtt over to therapeutic Lovenox while he remains NPO. (5) Aspiration pneumonia: Code(s): J69.0 - Pneumonitis due to inhalation of food and vomit Status: Acute Assessment and Plan: * Noted to have dyspnea with new onset coarse lung sounds 04/24. * CXR was concerning for aspiration pneumonia with increasing opacities in the bilateral mid and lower lung zones * Completed 7-day course of IV vancomycin and Unasyn. * Supportive care including bronchodilators and incentive spirometry * Maintaining adequate oxygenation on room air. Supplemental O2 as needed with goal sat 92% or above. Leukocytosis improved. (6) Elevated troponin: Code(s): R77.8 - Other specified abnormalities of plasma proteins Status: Acute Assessment and Plan: * Elevated with peak up to 0.672. Suspect related to demand ischemia given atrial fibrillation with RVR. Remains asymptomatic. * Appreciate cardiology input. * Echocardiogram reviewed (7) Chronic kidney disease, stage 4 (severe): Code(s): N18.4 - Chronic kidney disease, stage 4 (severe) Status: Acute Assessment and Plan: * He is established with Nephrology. Renal function is consistent with his baseline and has improved throughout admission (Cr 3.0 on arri
--- NOTE | 2021-05-03 16:22 | PM.IMPN ---
Progress Note: A&P Assessment and Plan (1) Encephalopathy: Code(s): G93.40 - Encephalopathy, unspecified Status: Acute Assessment and Plan: Improving. Presented with confusion ongoing for 1 week prior to arrival. Previously with auditory and visual hallucinations that are resolved. Does not exhibit confusion today. Suspect metabolic encephalopathy given renal failure and hypercalcemia as well as acute infection Head CT 04/24 reviewed with no acute findings. Repeat head CT 04/26 again no acute findings Ammonia, B12, and folate wnl. TSH low with normal T4 Has been seen in consultation by neurology Monitor mental status closely. (2) Hypercalcemia: Code(s): E83.52 - Hypercalcemia Status: Resolved Assessment and Plan: Related to excess use of TUMs in the setting of CKD. Calcium levels have normalized. Avoid TUMs. Appreciate nephrology consultation Treated with calcitonin which has since been discontinued Bone scan performed 04/26 with abnormalities of the hip and lumbar spine; follow-up radiographs with degenerative changes (3) Dysphagia: Code(s): R13.10 - Dysphagia, unspecified Status: Acute Assessment and Plan: Failed MBS x3 with silent aspiration. Etiology for this is unclear. Appears of neurogenic etiology as no structural causes were identified on EGD today. NPO. Appreciate GI input - may need to discuss possibility of G tube placement if he does not progress with speech therapy. Continue PPN with Clinimix Continue with speech therapy Aspiration precautions (4) Atrial fibrillation with RVR: Code(s): I48.91 - Unspecified atrial fibrillation Status: Acute Assessment and Plan: Improved; rates elevated this afternoon may be related to back pain. Appreciate cardiology input. PO metoprolol held due to NPO status. IV metoprolol 5 mg q4h available PRN rate >110. Heparin gtt was initiated yesterday due to holding his home Eliquis being NPO. Since his EGD is complete, will switch from heparin gtt over to therapeutic Lovenox while he remains NPO. (5) Aspiration pneumonia: Code(s): J69.0 - Pneumonitis due to inhalation of food and vomit Status: Acute Assessment and Plan: Noted to have dyspnea with new onset coarse lung sounds 04/24. CXR was concerning for aspiration pneumonia with increasing opacities in the bilateral mid and lower lung zones Completed 7-day course of IV vancomycin and Unasyn. Supportive care including bronchodilators and incentive spirometry Maintaining adequate oxygenation on room air. Supplemental O2 as needed with goal sat 92% or above. Leukocytosis improved. (6) Elevated troponin: Code(s): R77.8 - Other specified abnormalities of plasma proteins Status: Acute Assessment and Plan: Elevated with peak up to 0.672. Suspect related to demand ischemia given atrial fibrillation with RVR. Remains asymptomatic. Appreciate cardiology input. Echocardiogram reviewed (7) Chronic kidney disease, stage 4 (severe): Code(s): N18.4 - Chronic kidney disease, stage 4 (severe) Status: Acute Assessment and Plan: He is established with Nephrology. Renal function is consistent with his baseline and has improved throughout admission (Cr 3.0 on arrival improved and stable at 1.8 today). Monitor renal function closely. Renally dose medications. Appreciate nephrology input. (8) Essential (primary) hypertension: Code(s): I10 - Essential (primary) hypertension Status: Acute Assessment and Plan: Blood pressures reviewed and are variable, last 155/87. IV hydralazine fo
[2021-05-03] MEDS: MORPHINE SULFATE (*CRX) 4 MG/ML INJ 3 MG IV PUSH ×2 (17:08→20:52)
[2021-05-03 17:48] LABS: Triglycerides 77 mg/dL (<150)
[2021-05-03 18:12] LABS: Glucose Point of Care 177 mg/dl (65-105)
[2021-05-03] MEDS: FAT EMULSIONS IV 20% 250 ML 20 ML IVPB (20:53)
[2021-05-03] MEDS: INSULIN GLARGINE (*BKC) 100 UNITS/ML 35 UNITS SUB-Q (20:54)
[2021-05-03] MEDS: ENOXAPARIN 120 MG/0.8 ML SYRINGE 105 MG SUB-Q (22:16)
[2021-05-03] MEDS: AMINO ACIDS 4.25%/D5W/LYTES/CA 2,000 ML 80 ML IV CONT (22:18)
[2021-05-04 00:16] LABS: Glucose Point of Care 178 mg/dl (65-105)
[2021-05-04] MEDS: MORPHINE SULFATE (*CRX) 4 MG/ML INJ 3 MG IV PUSH ×5 (01:55→23:33)
[2021-05-04 05:43] VITALS: BP 139/77; PULSE 104; RESP 20; TEMP 36.4; O2SAT 100
[2021-05-04] MEDS: LEVOTHYROXINE SODIUM INJ 100 MCG/5 ML VIAL 88 MCG IV PUSH (05:57)
[2021-05-04 06:04] LABS: Glucose Point of Care 178 mg/dl (65-105)
[2021-05-04 06:53] LABS: Albumin Level 2.9 g/dL (3.5-5.1); Anion Gap 9 mmol/L (8-16); Blood Urea Nitrogen 35 mg/dL (9-20); Calcium 8.1 mg/dL (8.4-10.2); Carbon Dioxide 21 mmol/L (22-30); Chloride 109 mmol/L (98-107); Estimated CRCL calculation 48 ml/min; Estimated Glomerular Filt Rate 46; Glucose 186 mg/dL (65-110); Phosphorus 2.7 mg/dL (2.5-4.5); Sodium 139 mmol/L (137-145)
--- NOTE | 2021-05-04 08:15 | WPDANESPN ---
Anes - Prog Note Post-Op Date/Time: 05/04/21 08:15 Cardiovascular status: normal Respiratory status: normal Airway patency: baseline Mental status: baseline Post-Op hydration status: normal Vital Signs: Last Vital Signs Temp 36.4 C L 05/04/21 05:43 Pulse 104 H 05/04/21 05:43 Resp 20 05/04/21 05:43 BP 139/77 05/04/21 05:43 Pulse Ox 100 05/04/21 05:43 Pain Score (VAS): 0 I/O: Intake & Output 05/03/21 05/04/21 05/04/21 23:59 07:59 15:59 Intake Total 2000 Output Total 500 1000 Balance 1500 -1000 Laboratory Tests 05/03/21 04:34 05/04/21 06:18 05/03/21 05/03/21 05/03/21 09:43 11:31 13:27 APTT 54.7 H Sodium Potassium Chloride Carbon Dioxide Anion Gap BUN Creatinine Estim Creat Clear Calc Estimated GFR Glucose POC Capillary Glucose 185 H 182 H Calcium Phosphorus Albumin Triglycerides 05/03/21 05/03/21 05/03/21 14:36 17:00 17:00 APTT 42.0 H Sodium Potassium Chloride Carbon Dioxide Anion Gap BUN Creatinine Estim Creat Clear Calc Estimated GFR Glucose POC Capillary Glucose 153 H Calcium Phosphorus Albumin Triglycerides 77 05/03/21 05/04/21 05/04/21 18:08 00:13 06:00 APTT Sodium Potassium Chloride Carbon Dioxide Anion Gap BUN Creatinine Estim Creat Clear Calc Estimated GFR Glucose POC Capillary Glucose 177 H 178 H 178 H Calcium Phosphorus Albumin Triglycerides 05/04/21 06:18 APTT Sodium 139 Potassium 4.0 Chloride 109 H Carbon Dioxide 21 L Anion Gap 9 BUN 35 H Creatinine 1.50 H Estim Creat Clear Calc 48 Estimated GFR 46 L Glucose 186 H POC Capillary Glucose Calcium 8.1 L Phosphorus 2.7 Albumin 2.9 L Triglycerides Post-procedural complaints: none Patient Feedback: Patient satisfied with anesthetic care.
[2021-05-04] MEDS: PANTOPRAZOLE SODIUM IV 40 MG VIAL IV PUSH ×2 (08:50→20:31)
[2021-05-04] MEDS: ASPIRIN 81 MG CHEWABLE TABLET PO (08:50)
[2021-05-04] MEDS: ENOXAPARIN 120 MG/0.8 ML SYRINGE 105 MG SUB-Q ×2 (08:50→20:31)
[2021-05-04 11:46] LABS: Glucose Point of Care 191 mg/dl (65-105)
--- NOTE | 2021-05-04 13:39 | WPDGIPROGNO ---
Progress Note: A&P Assessment and Plan (1) Dysphagia: Code(s): R13.10 - Dysphagia, unspecified Status: Acute Assessment and Plan: Based on what we know so far, it appears that this is possibly a neurologic dysphagia with oropharyngeal dysfunction. Structural abnormalities need to be ruled out. EGD was negative for stricture. I Did find a severe gastritis. H pylori was negative. Protonix will be continued (2) Encephalopathy: Code(s): G93.40 - Encephalopathy, unspecified Status: Acute Assessment and Plan: This is apparently and hopefully a temporary situation which is already resolving. CT of the head x2 has been negative. He actually seems fairly alert to me at this time (3) Atrial fibrillation with RVR: Code(s): I48.91 - Unspecified atrial fibrillation Status: Acute Assessment and Plan: apixaban has been held. He is now on heparin drip. We will need to hold that for 4 hours prior to the PEG (4) Anemia: Code(s): D64.9 - Anemia, unspecified Status: Acute Assessment and Plan: this is likely chronic, multifactorial, particularly in view of his chronic kidney disease. I doubt there is an active blood loss. He had an EGD and colonoscopy 1 year ago that revealed 3 polyps that were removed from his ascending colon. He also had a hiatal hernia with Savage erosions. Additional Plan At this point I am now thinking he will need a feeding tube and I will tentatively schedule that for Friday Time Spent With Patient Time with patient: 15 - 25 minutes Subjective Date/time seen: 05/04/21 13:39 I met the patient and his in his room. We discussed his swallowing situation. He has failed swallow evaluation I believe 3 times, but he states that speech therapy is working with him and giving him exercises to do. He and his are hopeful but not optimistic that he will be able to swallow, as he was having some issues at home. I asked if they have had in the guidance from Neurology as to whether this is likely to be a persistent problem. They do not recall speaking with Dr. Naseer. Moore and I spoke about his situation. She call Dr. Walton this morning but apparently he is going to be out of town for a few days. the patient and his are in agreement to proceeding with a gastrostomy tube if it is going to help with his nutrition and in turn that this may help with his rehabilitation. I agree with and certainly he would be better off getting full nutrition instead of the only the supplements that he is receiving intravenously now. Review of Systems Review of Systems: All systems reviewed & are unremarkable except as noted in HPI and below Exam Const: General: cooperative, alert and awake Nutritional Appearance: overweight GI: Inspection: normal to inspection Auscultation: normal bowel sounds Objective Data Vital Signs Vital Signs: Vital Signs - 24 hr 05/03/21 13:40 05/03/21 14:20 05/03/21 14:30 Temperature 36.3 C L Pulse Rate 93 104 H 109 H Respiratory Rate 18 17 21 H Blood Pressure 157/81 H 153/115 H 112/36 L Pulse Oximetry 100 97 100 05/03/21 14:40 05/03/21 15:16 05/03/21 21:45 Temperature 36.8 C 36.7 C Pulse Rate 111 H 118 H 128 H Respiratory Rate 22 H 16 18 Blood Pressure 113/48 L 155/87 H 156/92 H Pulse Oximetry 99 100 100 05/04/21 05:43 Temperature 36.4 C L Pulse Rate 104 H Respiratory Rate 20 Blood Pressure 139/77 Pulse Oximetry 100 Intake/Output Intake/Output: Intake & Output 05/01/21 05/02/21 05/03/21 05/04/21 23:59 23:59 23:59 23:59 Intake Total 2210 1480 2300 250 Output Total 1550 1300 1750 1250 Balance 660 180 550 -1000 Meds/Results Medications: Active Medications Generic Name Dose Route Start Last Admin Trade Name Agq PRN Reason Stop Dose Admin Albuterol 2.5 mg 04/25/21 09:53 Albuterol Sulfate Neb 2.5 Mg/0.5 Ml Inh INHALATION Q6HRT PRN Shortness Of B
--- NOTE | 2021-05-04 13:57 | PCNFU ---
Nutrition Follow-Up Complete: Involuntary weight loss related to multiple medical issues, including indigestion, as evidenced by documented 10% weight loss x 7 months without trying. Goal: Patient to consume 50% of meals/supplements or greater. Patient has limited progress towards goal. We will continue current goal. Pt current nutrition is NPO/PPN. Last recorded weight is 105.6 kg, up from 98.2 kg. Bowel Motility:+BM reported 05/02 Labs Reviewed:Glu 186,GFR 46,Cr 1.5,BUN 35, Alb 2.9 Meds Noted:Protonix,Lovenox,Retacrit,Lantus,Synthroid,Morphine Sulfate,Zofran Clinimix E 4.25/5 and 250 ml of 20% Lipid Emulsion. Additional Notes: Nutrition follow up. Patient failed MBS on 05/02. Spoke with ANGELA Moore today regarding patients nutritional status. GI following for G tube placement on Friday. PPN continues at 80 ml/hr providing 1153 kcals and 82 gms protein. Tube feeding recommendations: Suplena starting at 25 ml/hr advance by 10 ml/hr to goal rate of 60 ml/hr providing patient with 2178 kcals and 59 gms protein. Monitoring: Follow up every 3 days.
[2021-05-04 14:51] VITALS: BP 127/60; PULSE 78; RESP 16; TEMP 36.8; O2SAT 92
--- NOTE | 2021-05-04 16:38 | P.PNIM_ITS ---
Progress Note: A&P Assessment and Plan (1) Dysphagia: Qualifiers: Dysphagia type: oropharyngeal phase Qualified Code(s): R13.12 - Dyspha j carlos, oropharyngeal phase Code(s): R13.10 - Dysphagia, unspecified Status: Acute Assessment and Plan: * Failed MBS x3 with persistent silent aspiration. Etiology for this is unclear. Appears of neurogenic etiology as no structural causes were identified on EGD. * NPO. Aspiration precautions. Continue speech therapy. * Appreciate GI input. Discussed case with Dr Sutton. Plan is for PEG placement potentially Friday. He has discussed this with patient and family. We will hold Lovenox dose Friday AM. * Continue PPN with Clinimix for now. (2) Encephalopathy: Code(s): G93.40 - Encephalopathy, unspecified Status: Acute Assessment and Plan: * Improving. Presented with confusion ongoing for 1 week prior to arrival. Previously with auditory and visual hallucinations that are resolved. Does not exhibit confusion today. * Suspect metabolic encephalopathy given renal failure and hypercalcemia * Head CT 04/24 reviewed with no acute findings. Repeat head CT 04/26 again no acute findings. Unable to obtain MRI brain due to pacemaker. * Ammonia, B12, and folate wnl. TSH low with normal T4 * Has been seen in consultation by neurology - appreciate further recommenda tions. (3) Hypercalcemia: Code(s): E83.52 - Hypercalcemia Status: Resolved Assessment and Plan: * Related to excess use of TUMs in the setting of CKD. Calcium levels have normalized. * Appreciate nephrology consultation. Avoid TUMs. * Treated with calcitonin which has since been discontinued * Bone scan performed 04/26 with abnormalities of the hip and lumbar spine; follow-up radiographs with degenerative changes. (4) Atrial fibrillation with RVR: Code(s): I48.91 - Unspecified atrial fibrillation Status: Acute Assessment and Plan: * Improved; rates stable today. Appreciate cardiology input. * PO metoprolol held due to NPO status. IV metoprolol 5 mg q4h available PRN rate >110. * Heparin gtt was initiated 05/02 due to holding his home Eliquis being NPO. Since his EGD is complete, he was switched from heparin gtt over to therapeutic Lovenox while he remains NPO. GI anticipates holding Eliquis x 48 hr following his PEG placement. (5) Aspiration pneumonia: Qualifiers: Aspiration pneumonia type: unspecified Laterality: unspecified laterality Lung location: unspecified part of lung Qualified Code(s): J69.0 - Pneumonitis due to inhalation of food and vomit Code(s): J69.0 - Pneumonitis due to inhalation of food and vomit Status: Acute Assessment and Plan: * Noted to have dyspnea with new onset coarse lung sounds 04/24. * CXR was concerning for aspiration pneumonia with increasing opacities in the bilateral mid and lower lung zones * Completed 7-day course of IV vancomycin and Unasyn. (6) Elevated troponin: Code(s): R77.8 - Other specified abnormalities of plasma proteins Status: Acute Assessment and Plan: * Elevated with peak up to 0.672. Suspect related to demand ischemia given atrial fibrillation with RVR. Remains asymptomatic. * Appreciate cardiology input. Echocardiogram reviewed (7) Chronic kidney disease, stage 4 (severe): Co
--- NOTE | 2021-05-04 16:38 | PM.IMPN ---
Progress Note: A&P Assessment and Plan (1) Dysphagia: Qualifiers: Dysphagia type: oropharyngeal phase Qualified Code(s): R13.12 - Dysphagia, oropharyngeal phase Code(s): R13.10 - Dysphagia, unspecified Status: Acute Assessment and Plan: Failed MBS x3 with persistent silent aspiration. Etiology for this is unclear. Appears of neurogenic etiology as no structural causes were identified on EGD. NPO. Aspiration precautions. Continue speech therapy. Appreciate GI input. Discussed case with Dr Sutton. Plan is for PEG placement potentially Friday. He has discussed this with patient and family. We will hold Lovenox dose Friday AM. Continue PPN with Clinimix for now. (2) Encephalopathy: Code(s): G93.40 - Encephalopathy, unspecified Status: Acute Assessment and Plan: Improving. Presented with confusion ongoing for 1 week prior to arrival. Previously with auditory and visual hallucinations that are resolved. Does not exhibit confusion today. Suspect metabolic encephalopathy given renal failure and hypercalcemia Head CT 04/24 reviewed with no acute findings. Repeat head CT 04/26 again no acute findings. Unable to obtain MRI brain due to pacemaker. Ammonia, B12, and folate wnl. TSH low with normal T4 Has been seen in consultation by neurology - appreciate further recommendations. (3) Hypercalcemia: Code(s): E83.52 - Hypercalcemia Status: Resolved Assessment and Plan: Related to excess use of TUMs in the setting of CKD. Calcium levels have normalized. Appreciate nephrology consultation. Avoid TUMs. Treated with calcitonin which has since been discontinued Bone scan performed 04/26 with abnormalities of the hip and lumbar spine; follow-up radiographs with degenerative changes. (4) Atrial fibrillation with RVR: Code(s): I48.91 - Unspecified atrial fibrillation Status: Acute Assessment and Plan: Improved; rates stable today. Appreciate cardiology input. PO metoprolol held due to NPO status. IV metoprolol 5 mg q4h available PRN rate >110. Heparin gtt was initiated 05/02 due to holding his home Eliquis being NPO. Since his EGD is complete, he was switched from heparin gtt over to therapeutic Lovenox while he remains NPO. GI anticipates holding Eliquis x 48 hr following his PEG placement. (5) Aspiration pneumonia: Qualifiers: Aspiration pneumonia type: unspecified Laterality: unspecified laterality Lung location: unspecified part of lung Qualified Code(s): J69.0 - Pneumonitis due to inhalation of food and vomit Code(s): J69.0 - Pneumonitis due to inhalation of food and vomit Status: Acute Assessment and Plan: Noted to have dyspnea with new onset coarse lung sounds 04/24. CXR was concerning for aspiration pneumonia with increasing opacities in the bilateral mid and lower lung zones Completed 7-day course of IV vancomycin and Unasyn. (6) Elevated troponin: Code(s): R77.8 - Other specified abnormalities of plasma proteins Status: Acute Assessment and Plan: Elevated with peak up to 0.672. Suspect related to demand ischemia given atrial fibrillation with RVR. Remains asymptomatic. Appreciate cardiology input. Echocardiogram reviewed (7) Chronic kidney disease, stage 4 (severe): Code(s): N18.4 - Chronic kidney disease, stage 4 (severe) Status: Acute Assessment and Plan: He is established with Nephrology. Renal function is consistent with his baseline and has improved throughout admission (Cr 3.0 on arrival improved and stable at 1.5 today). Monitor renal function closely. Renally dose medications. Appreciate nephrology input. _
[2021-05-04 18:02] LABS: Glucose Point of Care 180 mg/dl (65-105)
[2021-05-04] MEDS: AMINO ACIDS 4.25%/D5W/LYTES/CA 2,000 ML 80 ML IV CONT (18:46)
[2021-05-04] MEDS: FAT EMULSIONS IV 20% 250 ML 20.8 ML IVPB (18:46)
[2021-05-04] MEDS: INSULIN GLARGINE (*BKC) 100 UNITS/ML 35 UNITS SUB-Q (20:32)
[2021-05-04 22:00] VITALS: BP 151/82; PULSE 76; RESP 18; TEMP 36.5; O2SAT 99
[2021-05-04 23:44] LABS: Glucose Point of Care 190 mg/dl (65-105)
[2021-05-05] MEDS: MORPHINE SULFATE (*CRX) 4 MG/ML INJ 3 MG IV PUSH ×4 (05:33→18:37)
[2021-05-05] MEDS: LEVOTHYROXINE SODIUM INJ 100 MCG/5 ML VIAL 88 MCG IV PUSH (05:33)
[2021-05-05 05:43] LABS: Glucose Point of Care 154 mg/dl (65-105)
[2021-05-05 06:00] VITALS: BP 130/61; PULSE 68; RESP 18; TEMP 36.2; O2SAT 99
[2021-05-05 06:07] LABS: Anion Gap 6 mmol/L (8-16); Blood Urea Nitrogen 34 mg/dL (9-20); Carbon Dioxide 22 mmol/L (22-30); Chloride 108 mmol/L (98-107); Estimated CRCL calculation 51 ml/min; Estimated Glomerular Filt Rate 50; Glucose 155 mg/dL (65-110); Phosphorus 2.6 mg/dL (2.5-4.5); Potassium 3.9 mmol/L (3.4-5.0); Sodium 136 mmol/L (137-145)
[2021-05-05 08:00] VITALS: PULSE 68; RESP 18; O2SAT 99
[2021-05-05] MEDS: ENOXAPARIN 120 MG/0.8 ML SYRINGE 105 MG SUB-Q ×2 (08:15→20:19)
[2021-05-05] MEDS: PANTOPRAZOLE SODIUM IV 40 MG VIAL IV PUSH ×2 (08:16→20:19)
[2021-05-05] MEDS: ASPIRIN 81 MG CHEWABLE TABLET PO (08:16)
[2021-05-05] MEDS: EPOETIN ALFA-EPBX 10,000 UNITS/ML VIAL 10000 UNITS SUB-Q (08:18)
--- NOTE | 2021-05-05 11:18 | PM.PNNEP ---
Progress Note: A&P Assessment and Plan (1) Hypercalcemia: Code(s): E83.52 - Hypercalcemia Status: Resolved Assessment and Plan: Resolved Hypernatremia Resolved (2) Elevated troponin: Code(s): R77.8 - Other specified abnormalities of plasma proteins Status: Acute Assessment and Plan: The patient has atrial fibrillation with rapid ventricular rate. This caused a leak of troponin per Cardiology. He looks euvolemic. pulse is good 60 to 80 (3) Chronic kidney disease, stage 4 (severe): Code(s): N18.4 - Chronic kidney disease, stage 4 (severe) Status: Acute Assessment and Plan: The patient's creatinine stable , and it is at baseline. Etiology is diabetes and hypertension. (4) Afib: Code(s): I48.91 - Unspecified atrial fibrillation Status: Acute Assessment and Plan: The patient has AFib . Cardiology Is on the case. He continues on Eliquis Heart rate is well controlled. shortness of breath: breathing comfortably now. (5) Essential (primary) hypertension: Code(s): I10 - Essential (primary) hypertension Status: Acute Assessment and Plan: His blood pressure is doing well. 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 Check this on Friday On EPO (7) Type 2 diabetes mellitus with diabetic nephropathy: Qualifiers: Diabetes mellitus intermediate teacher insulin use: with intermediate teacher use Qualified Code(s): E11.21 - Type 2 diabetes mellitus with diabetic nephropathy; Z79.4 - nursing home (current) use of insulin Code(s): E11.21 - Type 2 diabetes mellitus with diabetic nephropathy Status: Acute Assessment and Plan: On meds per hospitalist (8) Aspiration pneumonia: Qualifiers: Aspiration pneumonia type: unspecified Laterality: unspecified laterality Lung location: unspecified part of lung Qualified Code(s): J69.0 - Pneumonitis due to inhalation of food and vomit Code(s): J69.0 - Pneumonitis due to inhalation of food and vomit Status: Acute Assessment and Plan: Neurology feels this is generalized weakness to get a PEG tube and continued therapy Subjective Date/time seen: 05/05/21 11:18 Interval history: patient is feeling okay today. Sitting up in a chair. Speech therapy is in the room. The plan is to put a PEG tube it on Friday and continue speech therapy. Exam Narrative: WDWN in NAD skin no rash or subcu nodules head ncat lungs clear cor irreg no rub or gallop abd BS+ nontender and soft ext no edema or cyanosis. Objective Data Vital Signs Vital Signs: Vital Signs - 24 hr 05/04/21 14:51 05/04/21 22:00 05/05/21 06:00 Temperature 36.8 C 36.5 C 36.2 C L Pulse Rate 78 76 68 Respiratory Rate 16 18 18 Blood Pressure 127/60 151/82 H 130/61 Pulse Oximetry 92 99 99 05/05/21 08:00 Temperature Pulse Rate 68 Respiratory Rate 18 Blood Pressure Pulse Oximetry 99 Intake/Output Intake/Output: Intake & Output 05/02/21 05/03/21 05/04/21 05/05/21 23:59 23:59 23:59 23:59 Intake Total 1480 2300 2250 Output Total 1300 1750 1650 850 Balance 180 550 600 -850 Meds/Results Medications: Active Medications Generic Name Dose Route Start Last Admin Trade Name Freq PRN Reason Stop Dose Admin Albuterol 2.5 mg 04/25/21 09:53 Albuterol Sulfate Neb 2.5 Mg/0.5 Ml Inh INHALATION Q6HRT PRN Shortness Of Breath Aspirin 81 mg 04/24/21 08:00 05/05/21 08:16 Aspirin 81 Mg Chewable Tablet PO 81 mg DAILY@0800 SHABNAM Administration Dextrose 12.5 gm 04/24/21 12:31 Dextrose 50% 25 Gm/50 Ml Syringe IV PUSH PRN PRN Hypoglycemia Protocol Enoxaparin Sodium 105 mg 05/03/21 21:00 05/05/21 08:15 Enoxaparin 120 Mg/0.8 Ml Syringe
[2021-05-05 13:25] LABS: Glucose Point of Care 139 mg/dl (65-105)
[2021-05-05 14:00] VITALS: BP 118/89; PULSE 80; RESP 20; TEMP 37; O2SAT 100
--- NOTE | 2021-05-05 14:30 | P.PNIM_ITS ---
Progress Note: A&P Assessment and Plan (1) Dysphagia: Qualifiers: Dysphagia type: oropharyngeal phase Qualified Code(s): R13.12 - Dysphagia, oropharyngeal phase Code(s): R13.10 - Dysphagia, unspecified Status: Acute Assessment and Plan: * Failed MBS x3 with persistent silent aspiration. Etiology for this is unclear. Appears of neurogenic etiology as no structural causes were identified on EGD. * NPO. Aspiration precautions. Continue speech therapy. * Appreciate GI input. Discussed case with Dr Sutton. Plan is for PEG placement Friday. He has discussed this with patient and family. We will hold Lovenox dose Friday AM. * Continue PPN with Clinimix for now. (2) Encephalopathy: Code(s): G93.40 - Encephalopathy, unspecified Status: Resolved Assessment and Plan: * Resolved. Presented with confusion ongoing for 1 week prior to arrival. Previously with auditory and visual hallucinations that are resolved. Does not exhibit confusion today. * Suspect metabolic encephalopathy given renal failure and hypercalcemia * Head CT 04/24 reviewed with no acute findings. Repeat head CT 04/26 again no acute findings. Unable to obtain MRI brain due to pacemaker. * Ammonia, B12, and folate wnl. TSH low with normal T4 * Has been seen in consultation by neurology - appreciate further recommendations. (3) Hypercalcemia: Code(s): E83.52 - Hypercalcemia Status: Resolved Assessment and Plan: * Related to excess use of TUMs in the setting of CKD. Calcium levels have normalized. * Appreciate nephrology consultation. Avoid TUMs. * Treated with calcitonin which has since been discontinued * Bone scan performed 04/26 with abnormalities of the hip and lumbar spine; follow-up radiographs with degenerative changes. (4) Atrial fibrillation with RVR: Code(s): I48.91 - Unspecified atrial fibrillation Status: Acute Assessment and Plan: * Improved; rates stable today. Appreciate cardiology input. * PO metoprolol held due to NPO status. IV metoprolol 5 mg q4h available PRN rate >110. * Continue therapeutic Lovenox while he remains NPO and his home eliquis is held. GI anticipates holding Eliquis x 48 hr following his PEG placement. (5) Aspiration pneumonia: Qualifiers: Aspiration pneumonia type: unspecified Laterality: unspecified laterality Lung location: unspecified part of lung Qualified Code(s): J69.0 - Pneumonitis due to inhalation of food and vomit Code(s): J69.0 - Pneumonitis due to inhalation of food and vomit Status: Acute Assessment and Plan: * Noted to have dyspnea with new onset coarse lung sounds 04/24. * CXR was concerning for aspiration pneumonia with increasing opacities in the bilateral mid and lower lung zones * Completed 7-day course of IV vancomycin and Unasyn. (6) Elevated troponin: Code(s): R77.8 - Other specified abnormalities of plasma proteins Status: Acute Assessment and Plan: * Elevated with peak up to 0.672. Suspect related to demand ischemia given atrial fibrillation with RVR. Remains asymptomatic. * Appreciate cardiology input. Echocardiogram reviewed (7) Chronic kidney disease, stage 4 (severe): Code(s): N18.4 - Chronic kidney disease, stage 4 (severe) Status: Acute Assessment and Plan: *
--- NOTE | 2021-05-05 14:30 | PM.IMPN ---
Progress Note: A&P Assessment and Plan (1) Dysphagia: Qualifiers: Dysphagia type: oropharyngeal phase Qualified Code(s): R13.12 - Dysphagia, oropharyngeal phase Code(s): R13.10 - Dysphagia, unspecified Status: Acute Assessment and Plan: Failed MBS x3 with persistent silent aspiration. Etiology for this is unclear. Appears of neurogenic etiology as no structural causes were identified on EGD. NPO. Aspiration precautions. Continue speech therapy. Appreciate GI input. Discussed case with Dr Sutton. Plan is for PEG placement Friday. He has discussed this with patient and family. We will hold Lovenox dose Friday AM. Continue PPN with Clinimix for now. (2) Encephalopathy: Code(s): G93.40 - Encephalopathy, unspecified Status: Resolved Assessment and Plan: Resolved. Presented with confusion ongoing for 1 week prior to arrival. Previously with auditory and visual hallucinations that are resolved. Does not exhibit confusion today. Suspect metabolic encephalopathy given renal failure and hypercalcemia Head CT 04/24 reviewed with no acute findings. Repeat head CT 04/26 again no acute findings. Unable to obtain MRI brain due to pacemaker. Ammonia, B12, and folate wnl. TSH low with normal T4 Has been seen in consultation by neurology - appreciate further recommendations. (3) Hypercalcemia: Code(s): E83.52 - Hypercalcemia Status: Resolved Assessment and Plan: Related to excess use of TUMs in the setting of CKD. Calcium levels have normalized. Appreciate nephrology consultation. Avoid TUMs. Treated with calcitonin which has since been discontinued Bone scan performed 04/26 with abnormalities of the hip and lumbar spine; follow-up radiographs with degenerative changes. (4) Atrial fibrillation with RVR: Code(s): I48.91 - Unspecified atrial fibrillation Status: Acute Assessment and Plan: Improved; rates stable today. Appreciate cardiology input. PO metoprolol held due to NPO status. IV metoprolol 5 mg q4h available PRN rate >110. Continue therapeutic Lovenox while he remains NPO and his home eliquis is held. GI anticipates holding Eliquis x 48 hr following his PEG placement. (5) Aspiration pneumonia: Qualifiers: Aspiration pneumonia type: unspecified Laterality: unspecified laterality Lung location: unspecified part of lung Qualified Code(s): J69.0 - Pneumonitis due to inhalation of food and vomit Code(s): J69.0 - Pneumonitis due to inhalation of food and vomit Status: Acute Assessment and Plan: Noted to have dyspnea with new onset coarse lung sounds 04/24. CXR was concerning for aspiration pneumonia with increasing opacities in the bilateral mid and lower lung zones Completed 7-day course of IV vancomycin and Unasyn. (6) Elevated troponin: Code(s): R77.8 - Other specified abnormalities of plasma proteins Status: Acute Assessment and Plan: Elevated with peak up to 0.672. Suspect related to demand ischemia given atrial fibrillation with RVR. Remains asymptomatic. Appreciate cardiology input. Echocardiogram reviewed (7) Chronic kidney disease, stage 4 (severe): Code(s): N18.4 - Chronic kidney disease, stage 4 (severe) Status: Acute Assessment and Plan: He is established with Nephrology. Renal function is consistent with his baseline and has improved throughout admission (Cr 3.0 on arrival improved and stable at 1.4 today). Monitor renal function closely. Renally dose medications. Appreciate nephrology input. (8) Essential (primary) hypertension: Code(s): I10 - Essential (
[2021-05-05 16:05] LABS: Triglycerides 108 mg/dL (<150)
[2021-05-05 18:19] LABS: Glucose Point of Care 156 mg/dl (65-105)
[2021-05-05] MEDS: AMINO ACIDS 4.25%/D5W/LYTES/CA 2,000 ML 80 ML IV CONT (18:43)
[2021-05-05] MEDS: FAT EMULSIONS IV 20% 250 ML 20.8 ML IVPB (18:43)
[2021-05-05] MEDS: INSULIN GLARGINE (*BKC) 100 UNITS/ML 35 UNITS SUB-Q (20:20)
[2021-05-05 21:54] VITALS: BP 146/69; PULSE 108; RESP 18; TEMP 36.2; O2SAT 99
[2021-05-05 23:38] LABS: Glucose Point of Care 176 mg/dl (65-105)
[2021-05-06] MEDS: MORPHINE SULFATE (*CRX) 4 MG/ML INJ 3 MG IV PUSH ×4 (00:40→22:41)
[2021-05-06] MEDS: LEVOTHYROXINE SODIUM INJ 100 MCG/5 ML VIAL 88 MCG IV PUSH (05:34)
[2021-05-06 05:42] LABS: Glucose Point of Care 183 mg/dl (65-105)
[2021-05-06 06:00] VITALS: BP 131/67; PULSE 110; RESP 18; TEMP 36.3; O2SAT 100
[2021-05-06 06:14] LABS: Anion Gap 7 mmol/L (8-16); Blood Urea Nitrogen 32 mg/dL (9-20); Calcium 8.1 mg/dL (8.4-10.2); Carbon Dioxide 20 mmol/L (22-30); Chloride 107 mmol/L (98-107); Estimated CRCL calculation 54 ml/min; Estimated Glomerular Filt Rate 55; Glucose 178 mg/dL (65-110); Phosphorus 2.8 mg/dL (2.5-4.5); Potassium 4.1 mmol/L (3.4-5.0); Sodium 134 mmol/L (137-145)
[2021-05-06 08:00] VITALS: PULSE 115; RESP 18; O2SAT 100
[2021-05-06] MEDS: ENOXAPARIN 120 MG/0.8 ML SYRINGE 105 MG SUB-Q ×2 (08:38→20:15)
[2021-05-06] MEDS: ASPIRIN 81 MG CHEWABLE TABLET PO (08:38)
[2021-05-06] MEDS: PANTOPRAZOLE SODIUM IV 40 MG VIAL IV PUSH ×2 (08:38→20:15)
[2021-05-06 08:47] VITALS: PULSE 115
[2021-05-06] MEDS: METOPROLOL TARTRATE INJ 5 MG/5 ML VIAL IV PUSH (08:47)
[2021-05-06 12:01] LABS: Glucose Point of Care 189 mg/dl (65-105)
[2021-05-06] MEDS: FUROSEMIDE INJ 40 MG/4 ML VIAL IV PUSH (13:46)
[2021-05-06 14:00] VITALS: BP 142/67; PULSE 110; RESP 20; TEMP 36.7; O2SAT 100
--- NOTE | 2021-05-06 14:19 | P.PNIM_ITS ---
Progress Note: A&P Assessment and Plan (1) Dysphagia: Qualifiers: Dysphagia type: oropharyngeal phase Qualified Code(s): R13.12 - Dyspha j carlos, oropharyngeal phase Code(s): R13.10 - Dysphagia, unspecified Status: Acute Assessment and Plan: * Failed MBS x3 with persistent silent aspiration. Etiology for this is unclear. Appears of neurogenic etiology as no structural causes were identified on EGD. * NPO. Aspiration precautions. Continue speech therapy. * Appreciate GI input. Discussed case with Dr Sutton. Plan is for PEG placement tomorrow. He has discussed this with patient and family. We will hold Lovenox dose tomorrow AM. * Continue PPN with Clinimix for now. (2) Encephalopathy: Code(s): G93.40 - Encephalopathy, unspecified Status: Resolved Assessment and Plan: * Resolved. Presented with confusion ongoing for 1 week prior to arrival. Previously with auditory and visual hallucinations that are resolved. Does not exhibit confusion today. * Suspect metabolic encephalopathy given renal failure and hypercalcemia * Head CT 04/24 reviewed with no acute findings. Repeat head CT 04/26 again no acute findings. Unable to obtain MRI brain due to pacemaker. * Ammonia, B12, and folate wnl. TSH low with normal T4 * Has been seen in consultation by neurology - appreciate further recommendations. (3) Hypercalcemia: Code(s): E83.52 - Hypercalcemia Status: Resolved Assessment and Plan: * Related to excess use of TUMs in the setting of CKD. Calcium levels have normalized. * Appreciate nephrology consultation. Avoid TUMs. Treated with calcitonin which has since been discontinued * Bone scan performed 04/26 with abnormalities of the hip and lumbar spine; follow-up radiographs with degenerative changes. (4) Atrial fibrillation with RVR: Code(s): I48.91 - Unspecified atrial fibrillation Status: Acute Assessment and Plan: * Rates in 110s today. * PO metoprolol held due to NPO status. Continue IV metoprolol 5 mg q4h available PRN rate >110. * Continue therapeutic Lovenox while he remains NPO and his home eliquis is held. GI anticipates holding Eliquis x 48 hr following his PEG placement. Hold Lovenox in AM for procedure. (5) Aspiration pneumonia: Qualifiers: Aspiration pneumonia type: unspecified Laterality: unspecified laterality Lung location: unspecified part of lung Qualified Code(s): J69.0 - Pneumonitis due to inhalation of food and vomit Code(s): J69.0 - Pneumonitis due to inhalation of food and vomit Status: Resolved Assessment and Plan: * Noted to have dyspnea with new onset coarse lung sounds 04/24. * CXR was concerning for aspiration pneumonia with increasing opacities in the bilateral mid and lower lung zones * Completed 7-day course of IV vancomycin and Unasyn. (6) Elevated troponin: Code(s): R77.8 - Other specified abnormalities of plasma proteins Status: Acute Assessment and Plan: * Elevated with peak up to 0.672. Suspect related to demand ischemia given atrial fibrillation with RVR. Remains asymptomatic. * Appreciate cardiology input. Echocardiogram reviewed (7) Chronic kidney disease, stage 4 (severe): Code(s): N18.4 - Chronic kidney disease, stage 4 (severe) Status: Acute Assessment and
--- NOTE | 2021-05-06 14:19 | PM.IMPN ---
Progress Note: A&P Assessment and Plan (1) Dysphagia: Qualifiers: Dysphagia type: oropharyngeal phase Qualified Code(s): R13.12 - Dysphagia, oropharyngeal phase Code(s): R13.10 - Dysphagia, unspecified Status: Acute Assessment and Plan: Failed MBS x3 with persistent silent aspiration. Etiology for this is unclear. Appears of neurogenic etiology as no structural causes were identified on EGD. NPO. Aspiration precautions. Continue speech therapy. Appreciate GI input. Discussed case with Dr Sutton. Plan is for PEG placement tomorrow. He has discussed this with patient and family. We will hold Lovenox dose tomorrow AM. Continue PPN with Clinimix for now. (2) Encephalopathy: Code(s): G93.40 - Encephalopathy, unspecified Status: Resolved Assessment and Plan: Resolved. Presented with confusion ongoing for 1 week prior to arrival. Previously with auditory and visual hallucinations that are resolved. Does not exhibit confusion today. Suspect metabolic encephalopathy given renal failure and hypercalcemia Head CT 04/24 reviewed with no acute findings. Repeat head CT 04/26 again no acute findings. Unable to obtain MRI brain due to pacemaker. Ammonia, B12, and folate wnl. TSH low with normal T4 Has been seen in consultation by neurology - appreciate further recommendations. (3) Hypercalcemia: Code(s): E83.52 - Hypercalcemia Status: Resolved Assessment and Plan: Related to excess use of TUMs in the setting of CKD. Calcium levels have normalized. Appreciate nephrology consultation. Avoid TUMs. Treated with calcitonin which has since been discontinued Bone scan performed 04/26 with abnormalities of the hip and lumbar spine; follow-up radiographs with degenerative changes. (4) Atrial fibrillation with RVR: Code(s): I48.91 - Unspecified atrial fibrillation Status: Acute Assessment and Plan: Rates in 110s today. PO metoprolol held due to NPO status. Continue IV metoprolol 5 mg q4h available PRN rate >110. Continue therapeutic Lovenox while he remains NPO and his home eliquis is held. GI anticipates holding Eliquis x 48 hr following his PEG placement. Hold Lovenox in AM for procedure. (5) Aspiration pneumonia: Qualifiers: Aspiration pneumonia type: unspecified Laterality: unspecified laterality Lung location: unspecified part of lung Qualified Code(s): J69.0 - Pneumonitis due to inhalation of food and vomit Code(s): J69.0 - Pneumonitis due to inhalation of food and vomit Status: Resolved Assessment and Plan: Noted to have dyspnea with new onset coarse lung sounds 04/24. CXR was concerning for aspiration pneumonia with increasing opacities in the bilateral mid and lower lung zones Completed 7-day course of IV vancomycin and Unasyn. (6) Elevated troponin: Code(s): R77.8 - Other specified abnormalities of plasma proteins Status: Acute Assessment and Plan: Elevated with peak up to 0.672. Suspect related to demand ischemia given atrial fibrillation with RVR. Remains asymptomatic. Appreciate cardiology input. Echocardiogram reviewed (7) Chronic kidney disease, stage 4 (severe): Code(s): N18.4 - Chronic kidney disease, stage 4 (severe) Status: Acute Assessment and Plan: He is established with Nephrology. Renal function is consistent with his baseline and has improved throughout admission (Cr 3.0 on arrival improved and stable at 1.3 today). Monitor renal function closely. Renally dose medications. Appreciate nephrology input. (8) Essential (primary) hypertension: Code(s): I10 - Es
[2021-05-06 18:37] LABS: Glucose Point of Care 179 mg/dl (65-105)
[2021-05-06] MEDS: FAT EMULSIONS IV 20% 250 ML 20.8 ML IVPB (18:42)
[2021-05-06] MEDS: AMINO ACIDS 4.25%/D5W/LYTES/CA 2,000 ML 80 ML IV CONT (18:42)
[2021-05-06] MEDS: LORazepam INJ (*CRX) 2 MG/ML VIAL 1 MG IV PUSH (20:15)
[2021-05-06] MEDS: INSULIN GLARGINE (*BKC) 100 UNITS/ML 35 UNITS SUB-Q (20:17)
[2021-05-06 21:56] VITALS: BP 146/87; PULSE 109; RESP 18; TEMP 36.4; O2SAT 98
[2021-05-06 23:44] LABS: Glucose Point of Care 160 mg/dl (65-105)
[2021-05-07] VITALS (9 sets, daily range): BP systolic 94–156; BP diastolic 63–82; PULSE 66–120; RESP 13–27; TEMP 36.5–37.2; O2SAT 99–100
[2021-05-07] MEDS: MORPHINE SULFATE (*CRX) 4 MG/ML INJ 3 MG IV PUSH ×3 (02:34→18:25)
[2021-05-07] MEDS: LEVOTHYROXINE SODIUM INJ 100 MCG/5 ML VIAL 88 MCG IV PUSH (06:16)
[2021-05-07 06:24] LABS: Glucose Point of Care 174 mg/dl (65-105)
[2021-05-07] MEDS: PANTOPRAZOLE SODIUM IV 40 MG VIAL IV PUSH ×2 (08:21→21:37)
[2021-05-07 08:27] LABS: Basophils Percent Auto 0.7 % (0.2-1.2); Eosinophils Absolute Auto 0.2 K/mm3 (0-0.3); Eosinophils Percent Auto 3.3 % (0-4.4); Hematocrit 26.6 % (42.0-52.0); Hemoglobin 8.2 g/dL (14.0-18.0); Immature Granulocyte Absolute 0.03 K/mm3 (0.00-0.031); Immature Granulocyte Percent A 0.5 % (0-0.5); Lymphocytes Absolute Auto 0.91 K/mm3 (0.9-3.2); Lymphocytes Percent Auto 16.5 % (18.3-44.2); Mean Corpuscular HGB Conc 30.8 g/dl (32-36); Mean Corpuscular Hemoglobin 27.5 pg (26-34); Mean Corpuscular Volume 89.3 fl (80-100); Mean Platelet Volume 12.1 fl (7.4-10.4); Monocytes Absolute Auto 0.4 K/mm3 (0.1-0.6); Monocytes Percent Auto 7.5 % (2.6-8.5); Neutrophils Absolute Auto 3.9 K/mm3 (1.3-6.7); Neutrophils Percent Auto 71.5 % (45.5-73.1); Platelet Count Result 109 k/mm3 (150-375); Red Blood Count 2.98 M/mm3 (4.6-6.20); Red Cell Distribution Width 14.9 % (11.5-14.5); White Blood Count 5.5 K/mm3 (4.5-10.0)
[2021-05-07 08:35] LABS: INR 1.1; Prothrombin Time 13.9 Seconds (11.1-14.7)
[2021-05-07 08:36] LABS: Partial Thromboplastin Time 37.7 SECONDS (22.3-36.8)
[2021-05-07 08:44] LABS: Alanine Aminotransferase 19 U/L (4-50); Albumin Level 2.9 g/dL (3.5-5.1); Alkaline Phosphatase 67 U/L (38-126); Anion Gap 6 mmol/L (8-16); Aspartate Amino Transferase 27 U/L (17-59); Bilirubin,Total 0.6 mg/dL (0.2-1.3); Blood Urea Nitrogen 33 mg/dL (9-20); Calcium 8.4 mg/dL (8.4-10.2); Carbon Dioxide 20 mmol/L (22-30); Chloride 107 mmol/L (98-107); Estimated CRCL calculation 55 ml/min; Estimated Glomerular Filt Rate 55; Glucose 185 mg/dL (65-110); Potassium 4.4 mmol/L (3.4-5.0); Sodium 133 mmol/L (137-145)
--- NOTE | 2021-05-07 10:53 | PCNFU ---
Nutrition Follow-Up Complete: Involuntary weight loss related to multiple medical issues, including indigestion, as evidenced by documented 10% weight loss x 7 months without trying. Goal: Patient to consume 50% of meals/supplements or greater. Patient has not meet goal. New goal: Meet estimated nutritional needs. Pt current nutrition is NPO/PPN. Nutrition recommendation: Tube feedings of Suplena at 25 ml/hr advance by 10 ml/hr to goal rate of 60 ml/hr. Last recorded weight is 104.4 kg, up from 98.2kg. Bowel Motility:+BM reported 05/02 Labs Reviewed:Alb 2.9,Na 133,GFR 55,BUN 33,Glu 185 Meds Noted:Lovenox,Retacrit,Lantus,NovoLog, Synthroid,Morphine Sulfate, Protonix, Lopressor,Zofran,Clinimix E 4.25/5 at 80ml/hr with 250 ml Lipid Emulsion. Additional Notes: Nutrition follow up. Patient remains NPO for PEG placement today. Speech continues to follow. PPN providing 1153 kcals and 82 gms protein. Skin: WNL. Monitoring: Follow up every Friday and Friday.
--- NOTE | 2021-05-07 11:57 | P.PNIM_ITS ---
Progress Note: A&P Assessment and Plan (1) Dysphagia: Qualifiers: Dysphagia type: oropharyngeal phase Qualified Code(s): R13.12 - Dyspha j carlos, oropharyngeal phase Code(s): R13.10 - Dysphagia, unspecified Status: Acute Assessment and Plan: * Failed MBS x3 with persistent silent aspiration. Etiology for this is unclear. Appears of neurogenic etiology as no structural causes were identified on EGD. * NPO. Aspiration precautions. Continue speech therapy. * Appreciate GI input. Held Lovenox this morning for PEG placement this afternoon with Dr Sutton. * Stop PPN. (2) Encephalopathy: Code(s): G93.40 - Encephalopathy, unspecified Status: Resolved Assessment and Plan: * Resolved. Presented with confusion ongoing for 1 week prior to arrival. Previously with auditory and visual hallucinations that are resolved. Does not exhibit confusion today. * Suspect metabolic encephalopathy given renal failure and hypercalcemia * Head CT 04/24 reviewed with no acute findings. Repeat head CT 04/26 again no acute findings. Unable to obtain MRI brain due to pacemaker. * Ammonia, B12, and folate wnl. TSH low with normal T4 * Has been seen in consultation by neurology - appreciate input. (3) Hypercalcemia: Code(s): E83.52 - Hypercalcemia Status: Resolved Assessment and Plan: * Related to excess use of TUMs in the setting of CKD. Calcium levels have normalized. * Appreciate nephrology consultation. Avoid TUMs. Treated with calcitonin which has since been discontinued * Bone scan performed 04/26 with abnormalities of the hip and lumbar spine; follow-up radiographs with degenerative changes. (4) Atrial fibrillation with RVR: Code(s): I48.91 - Unspecified atrial fibrillation Status: Acute Assessment and Plan: * With intermittent tachycardia into 110s. * Resume his home metoprolol once we can use the G tube. In the interim, continue IV metoprolol 5 mg q4h available PRN rate >110. * Continue therapeutic Lovenox while he remains NPO and his home eliquis is held. GI anticipates holding Eliquis x 48 hr following his PEG placement. Hold Lovenox this AM for procedure. (5) Aspiration pneumonia: Qualifiers: Aspiration pneumonia type: unspecified Laterality: unspecified laterality Lung location: unspecified part of lung Qualified Code(s): J69.0 - Pneumonitis due to inhalation of food and vomit Code(s): J69.0 - Pneumonitis due to inhalation of food and vomit Status: Resolved Assessment and Plan: * Noted to have dyspnea with new onset coarse lung sounds 04/24. * CXR was concerning for aspiration pneumonia with increasing opacities in the bilateral mid and lower lung zones * Completed 7-day course of IV vancomycin and Unasyn. (6) Elevated troponin: Code(s): R77.8 - Other specified abnormalities of plasma proteins Status: Acute Assessment and Plan: * Elevated with peak up to 0.672. Suspect related to demand ischemia given atrial fibrillation with RVR. Remains asymptomatic. * Appreciate cardiology input. Echocardiogram reviewed (7) Chronic kidney disease, stage 4 (severe): Code(s): N18.4 - Chronic kidney disease, stage 4 (severe) Status: Acute Assessment and Plan: * He is established with Nephrology. Renal function is consistent w
--- NOTE | 2021-05-07 11:57 | PM.IMPN ---
Progress Note: A&P Assessment and Plan (1) Dysphagia: Qualifiers: Dysphagia type: oropharyngeal phase Qualified Code(s): R13.12 - Dysphagia, oropharyngeal phase Code(s): R13.10 - Dysphagia, unspecified Status: Acute Assessment and Plan: Failed MBS x3 with persistent silent aspiration. Etiology for this is unclear. Appears of neurogenic etiology as no structural causes were identified on EGD. NPO. Aspiration precautions. Continue speech therapy. Appreciate GI input. Held Lovenox this morning for PEG placement this afternoon with Dr Sutton. Stop PPN. (2) Encephalopathy: Code(s): G93.40 - Encephalopathy, unspecified Status: Resolved Assessment and Plan: Resolved. Presented with confusion ongoing for 1 week prior to arrival. Previously with auditory and visual hallucinations that are resolved. Does not exhibit confusion today. Suspect metabolic encephalopathy given renal failure and hypercalcemia Head CT 04/24 reviewed with no acute findings. Repeat head CT 04/26 again no acute findings. Unable to obtain MRI brain due to pacemaker. Ammonia, B12, and folate wnl. TSH low with normal T4 Has been seen in consultation by neurology - appreciate input. (3) Hypercalcemia: Code(s): E83.52 - Hypercalcemia Status: Resolved Assessment and Plan: Related to excess use of TUMs in the setting of CKD. Calcium levels have normalized. Appreciate nephrology consultation. Avoid TUMs. Treated with calcitonin which has since been discontinued Bone scan performed 04/26 with abnormalities of the hip and lumbar spine; follow-up radiographs with degenerative changes. (4) Atrial fibrillation with RVR: Code(s): I48.91 - Unspecified atrial fibrillation Status: Acute Assessment and Plan: With intermittent tachycardia into 110s. Resume his home metoprolol once we can use the G tube. In the interim, continue IV metoprolol 5 mg q4h available PRN rate >110. Continue therapeutic Lovenox while he remains NPO and his home eliquis is held. GI anticipates holding Eliquis x 48 hr following his PEG placement. Hold Lovenox this AM for procedure. (5) Aspiration pneumonia: Qualifiers: Aspiration pneumonia type: unspecified Laterality: unspecified laterality Lung location: unspecified part of lung Qualified Code(s): J69.0 - Pneumonitis due to inhalation of food and vomit Code(s): J69.0 - Pneumonitis due to inhalation of food and vomit Status: Resolved Assessment and Plan: Noted to have dyspnea with new onset coarse lung sounds 04/24. CXR was concerning for aspiration pneumonia with increasing opacities in the bilateral mid and lower lung zones Completed 7-day course of IV vancomycin and Unasyn. (6) Elevated troponin: Code(s): R77.8 - Other specified abnormalities of plasma proteins Status: Acute Assessment and Plan: Elevated with peak up to 0.672. Suspect related to demand ischemia given atrial fibrillation with RVR. Remains asymptomatic. Appreciate cardiology input. Echocardiogram reviewed (7) Chronic kidney disease, stage 4 (severe): Code(s): N18.4 - Chronic kidney disease, stage 4 (severe) Status: Acute Assessment and Plan: He is established with Nephrology. Renal function is consistent with his baseline and has improved throughout admission (Cr 3.0 on arrival improved and stable at 1.3 today). Monitor renal function closely. Renally dose medications. Appreciate nephrology input. (8) Essential (primary) hypertension: Code(s): I10 - Essential (primary) hypertension Status: Acute Assessment
[2021-05-07 12:06] LABS: Glucose Point of Care 202 mg/dl (65-105)
[2021-05-07] MEDS: LACTATED RINGERS 1,000 ML 100 ML IV CONT (13:16)
--- NOTE | 2021-05-07 13:36 | WPDANESEFPP ---
Anes - Eval Final PreProcedure Day of Procedure 05/07/21 13:36 Patient weight: obese Heart: irregular rhythm and tachycardia Lungs: clear to auscultation Last oral intake: >/= 8 hours ASA classification: IV Emergent: no Anesthetic plan: proceed Anesthesia type and monitoring: general GIVS and standard monitoring Informed Consent: The patient's anesthetic plan and its attendant risks and benefits were discussed with the patient/family/POA. Questions were solicited and answers provided to the satisfaction of the patient/family/POA.
[2021-05-07] MEDS: METOPROLOL TARTRATE INJ 5 MG/5 ML VIAL 10 MG IV PUSH (13:49)
[2021-05-07 14:39] LABS: Glucose Point of Care 179 mg/dl (65-105)
--- NOTE | 2021-05-07 14:41 | SUR.PHASEII ---
ACCORDION REPAIRER stated that patient was in A-fib RVR during procedure. Treated with dose of metoprolol post op. Patient is currently sinus tachycardic during post op and not symptomatic at this time. Gastric tube placed in upper left abdomen. Gauze dressing applied intra-op. Dressing appears clean, dry, and intact. Would suggest abdominal binder for inpatient use per family recommendations.
--- NOTE | 2021-05-07 17:15 | PM.PNNEP ---
Progress Note: A&P Assessment and Plan (1) Hypercalcemia: Code(s): E83.52 - Hypercalcemia Status: Resolved Assessment and Plan: Resolved Hypernatremia Resolved (2) Elevated troponin: Code(s): R77.8 - Other specified abnormalities of plasma proteins Status: Acute Assessment and Plan: The patient has atrial fibrillation with rapid ventricular rate. This caused a leak of troponin per Cardiology. He looks euvolemic. pulse is good 60 to 80 (3) Chronic kidney disease, stage 4 (severe): Code(s): N18.4 - Chronic kidney disease, stage 4 (severe) Status: Acute Assessment and Plan: The patient's creatinine stable , and it is at baseline. Etiology is diabetes and hypertension. he has some swelling now. He was admitted on furosemide 80 mg per day. Will restart 40 mg a day for now and see how he does. (4) Afib: Code(s): I48.91 - Unspecified atrial fibrillation Status: Acute Assessment and Plan: The patient has AFib . Cardiology Is on the case. He continues on Eliquis Heart rate is well controlled. shortness of breath: breathing comfortably now. (5) Essential (primary) hypertension: Code(s): I10 - Essential (primary) hypertension Status: Acute Assessment and Plan: His blood pressure is doing well. 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 Check this on Friday On EPO (7) Type 2 diabetes mellitus with diabetic nephropathy: Qualifiers: Diabetes mellitus skilled nursing insulin use: with skilled nursing use Qualified Code(s): E11.21 - Type 2 diabetes mellitus with diabetic nephropathy; Z79.4 - halfway (current) use of insulin Code(s): E11.21 - Type 2 diabetes mellitus with diabetic nephropathy Status: Acute Assessment and Plan: On meds per hospitalist (8) Aspiration pneumonia: Qualifiers: Aspiration pneumonia type: unspecified Laterality: unspecified laterality Lung location: unspecified part of lung Qualified Code(s): J69.0 - Pneumonitis due to inhalation of food and vomit Code(s): J69.0 - Pneumonitis due to inhalation of food and vomit Status: Resolved Assessment and Plan: Neurology feels this is generalized weakness His PEG tube is in Subjective Date/time seen: 05/07/21 17:15 Interval history: patient is feeling okay today. he had the PEG tube placed. He is eager to discharge to rehab Exam Narrative: WDWN in NAD skin no rash or subcu nodules head ncat lungs clear bilaterally cor irreg no rub or gallop abd BS+ nontender and soft ext he has 1+ bilateral edema Objective Data Vital Signs Vital Signs: Vital Signs - 24 hr 05/06/21 21:56 05/07/21 06:00 05/07/21 13:49 Temperature 36.4 C 36.5 C Pulse Rate 109 H 105 H 120 H Respiratory Rate 18 20 Blood Pressure 146/87 H 135/82 Pulse Oximetry 98 99 05/07/21 14:24 05/07/21 14:34 05/07/21 14:44 Temperature Pulse Rate 98 104 H 80 Respiratory Rate 25 H 27 H 13 Blood Pressure 96/66 L 96/70 L 94/70 L Pulse Oximetry 100 99 99 05/07/21 15:15 05/07/21 15:30 Temperature 36.6 C 36.6 C Pulse Rate 107 H 102 H Respiratory Rate 16 16 Blood Pressure 129/75 121/70 Pulse Oximetry 100 100 Intake/Output Intake/Output: Intake & Output 05/04/21 05/05/21 05/06/21 05/07/21 23:59 23:59 23:59 23:59 Intake Total 2250 2250 2250 250 Output Total 1650 1650 900 400 Balance 997 444 7079 -150 Meds/Results Medications: Active Medications Generic Name Dose Route Start Last Admin Trade Name Freq PRN Reason Stop Dose Admin Albuterol 2.5 mg 04/25/21 09:53 Albuterol Sulfate Neb 2.5 Mg/0.5 Ml Inh INHALATION Q6HRT PRN Shortness Of Breath Dextrose 12.5 gm 04/24/21 12:31 Dextro
[2021-05-07 17:46] LABS: Glucose Point of Care 159 mg/dl (65-105)
[2021-05-07] MEDS: FUROSEMIDE INJ 40 MG/4 ML VIAL 20 MG IV PUSH (18:25)
[2021-05-07] MEDS: FUROSEMIDE 40 MG TABLET PO (18:27)
[2021-05-07 19:54] LABS: Transferrin 204 mg/dL (206-381)
[2021-05-07] MEDS: FAT EMULSIONS IV 20% 250 ML 20.8 ML IVPB (21:36)
[2021-05-07] MEDS: INSULIN GLARGINE (*BKC) 100 UNITS/ML 35 UNITS SUB-Q (21:37)
[2021-05-07 21:57] LABS: Glucose Point of Care 168 mg/dl (65-105)
[2021-05-07] MEDS: LORazepam INJ (*CRX) 2 MG/ML VIAL 1 MG IV PUSH (22:31)
[2021-05-08] VITALS (7 sets, daily range): BP systolic 113–156; BP diastolic 48–79; PULSE 83–116; RESP 16–18; TEMP 36.6–37.2; O2SAT 99–100
[2021-05-08] MEDS: LEVOTHYROXINE SODIUM INJ 100 MCG/5 ML VIAL 88 MCG IV PUSH (05:51)
[2021-05-08 06:29] LABS: Glucose Point of Care 161 mg/dl (65-105)
[2021-05-08 06:38] LABS: Hematocrit 25.1 % (42.0-52.0)
[2021-05-08 06:55] LABS: Anion Gap 10 mmol/L (8-16); Blood Urea Nitrogen 33 mg/dL (9-20); Calcium 8.4 mg/dL (8.4-10.2); Carbon Dioxide 21 mmol/L (22-30); Chloride 104 mmol/L (98-107); Estimated CRCL calculation 51 ml/min; Estimated Glomerular Filt Rate 50; Glucose 153 mg/dL (65-110); Magnesium 1.9 mg/dL (1.6-2.3); Potassium 4.3 mmol/L (3.4-5.0); Sodium 135 mmol/L (137-145)
--- NOTE | 2021-05-08 07:59 | WPDGIPROGNO ---
Progress Note: A&P Assessment and Plan (1) Dysphagia: Qualifiers: Dysphagia type: oropharyngeal phase Qualified Code(s): R13.12 - Dysphagia, oropharyngeal phase Code(s): R13.10 - Dysphagia, unspecified Status: Acute Assessment and Plan: G-tube has been placed. Speech therapy continues to work with him. Hopefully the addition of protein by feeding tube will provide needed strength (2) Aspiration pneumonia: Qualifiers: Aspiration pneumonia type: unspecified Laterality: unspecified laterality Lung location: unspecified part of lung Qualified Code(s): J69.0 - Pneumonitis due to inhalation of food and vomit Code(s): J69.0 - Pneumonitis due to inhalation of food and vomit Status: Resolved Assessment and Plan: this is resolved. No longer on antibiotics (3) Abnormal gait: Code(s): R26.9 - Unspecified abnormalities of gait and mobility Status: Acute Assessment and Plan: per patient and his , the abnormal gait was the 1st thing noted by his primary care physician that had initiated a referral to a neurologist. Further care and treatment to be directed by Neurology Subjective Date/time seen: 05/08/21 07:59 tube feedings have been initiated he is tolerating them well. He denies abdominal pain. His only complaint now is that he feels half naked and is requesting underwear from nursing staff. Also he has had shoulder discomfort from time to time but nothing else new. He states that speech therapy has continued to help with his swallowing exercises. Review of Systems Review of Systems: All systems reviewed & are unremarkable except as noted in HPI and below Exam Const: General: cooperative, alert and awake Nutritional Appearance: overweight GI: Inspection: normal to inspection Auscultation: normal bowel sounds Other: Abdominal binder is covering G-tube to prevent him from inadvertently removing it Neuro: General: patient oriented x3 Objective Data Vital Signs Vital Signs: Vital Signs - 24 hr 05/07/21 13:49 05/07/21 14:24 05/07/21 14:34 Temperature Pulse Rate 120 H 98 104 H Respiratory Rate 25 H 27 H Blood Pressure 96/66 L 96/70 L Pulse Oximetry 100 99 05/07/21 14:44 05/07/21 15:15 05/07/21 15:30 Temperature 36.6 C 36.6 C Pulse Rate 80 107 H 102 H Respiratory Rate 13 16 16 Blood Pressure 94/70 L 129/75 121/70 Pulse Oximetry 99 100 100 05/07/21 17:00 05/07/21 17:46 Temperature 37.2 C 37.2 C Pulse Rate 89 66 Respiratory Rate 16 18 Blood Pressure 142/63 H 156/79 H Pulse Oximetry 100 100 Intake/Output Intake/Output: Intake & Output 05/05/21 05/06/21 05/07/21 05/08/21 23:59 23:59 23:59 23:59 Intake Total 2250 2250 250 2227 Output Total 1497 012 8162 300 Balance 600 1350 -850 1927 Meds/Results Medications: Active Medications Generic Name Dose Route Start Last Admin Trade Name Freq PRN Reason Stop Dose Admin Albuterol 2.5 mg 04/25/21 09:53 Albuterol Sulfate Neb 2.5 Mg/0.5 Ml Inh INHALATION Q6HRT PRN Shortness Of Breath Dextrose 12.5 gm 04/24/21 12:31 Dextrose 50% 25 Gm/50 Ml Syringe IV PUSH PRN PRN Hypoglycemia Protocol Enoxaparin Sodium 105 mg 05/03/21 21:00 05/06/21 20:15 Enoxaparin 120 Mg/0.8 Ml Syringe SUB-Q 105 mg Q12HR SHABNAM Administration Epoetin Harman-epbx 10,000 units 05/01/21 16:05 05/05/21 08:18 Epoetin Harman-Epbx 10,000 Units/Ml Vial SUB-Q 10,000 units TuThSa@0900 SHABNAM Administration Furosemide 40 mg 05/07/21 17:20 05/07/21 18:27 Furosemide 40 Mg Tablet PO 40 mg DAILY SHABNAM Administration Glucagon 1 mg 04/24/21 12:31 Glucagon For Inj 1 Mg Vial IM PRN PRN Hypoglycemia Protocol Glucose 15 gm 04/24/21 12:31 Glucose Oral Gel 15 Gm Of Glucse In 37.5 Gm Tube PO PRN PRN Hypoglycemia Protocol Hydralazine HCl 10 mg 04/28/21 09:20 Hydralazine Hcl 20 Mg/Ml Vial IV PUS
[2021-05-08] MEDS: METOPROLOL TARTRATE 50 MG TAB FEED TUBE ×2 (08:37→12:48)
[2021-05-08] MEDS: ENOXAPARIN 120 MG/0.8 ML SYRINGE 105 MG SUB-Q ×2 (08:40→21:27)
[2021-05-08] MEDS: PANTOPRAZOLE SODIUM IV 40 MG VIAL IV PUSH ×2 (08:41→21:31)
[2021-05-08] MEDS: FUROSEMIDE 40 MG TABLET PO ×2 (08:41→18:07)
[2021-05-08] MEDS: EPOETIN ALFA-EPBX 10,000 UNITS/ML VIAL 10000 UNITS SUB-Q (08:43)
--- NOTE | 2021-05-08 11:26 | PCNFU ---
Addendum entered by Lynette Meade RD, LDN 05/08/21 13:24: Spoke with Care Coordination today. Facility is unable to provide current tube feeding formula. MD orders for Tube feeding change to Glucerna 1.2 at 75 ml/hr over 22 hours, providing 1980 kcals/99 gms protein. Original Note: Nutrition Follow-Up Complete: Involuntary weight loss related to multiple medical issues, including indigestion, as evidenced by documented 10% weight loss x 7 months without trying. Goal: meet estimated nutritional needs. Patient is progressing towards goal. We will continue current goal. Pt current nutrition is Suplena at 60 ml/hr. Last recorded weight is 104.4 kg, up from 98.4 kg on admit. Bowel Motility:+BM reported 05/02. Labs Reviewed:Na 135,GFR 50,Cr 1.4,BUN 33,Glu 153,Hct 25.1,Hgb 8.0 Meds Noted:Lopressor,Synthroid,Lantus,Lasix,Zofran,Protonix. Additional Notes:Patient at PEG placed yesterday 05/07. Patient is tolerating feedings well. Suplena goal rate of 60 ml/hr providing patient with 2178 kcals/59 gms protein/958 ml water. Free water flush at 30 ml q 4 hours. I spoke with Senior Product Analyst regarding formula availability for discharge. Agree with diet orders. Monitoring: Follow up every Friday and Friday.
[2021-05-08 11:49] LABS: Glucose Point of Care 214 mg/dl (65-105)
--- NOTE | 2021-05-08 12:46 | P.PNIM_ITS ---
Progress Note: A&P Assessment and Plan (1) Dysphagia: Qualifiers: Dysphagia type: oropharyngeal phase Qualified Code(s): R13.12 - Dysphagia, oropharyngeal phase Code(s): R13.10 - Dysphagia, unspecified Status: Acute Assessment and Plan: * Failed MBS x3 with persistent silent aspiration. Etiology for this is unclear. Appears of neurogenic etiology as no structural causes were identified on EGD. * NPO. Aspiration precautions. Continue speech therapy. * PEG placement by Dr Sutton 05/07/21 * Stop PPN. (2) Encephalopathy: Code(s): G93.40 - Encephalopathy, unspecified Status: Resolved Assessment and Plan: * Presented with confusion ongoing for 1 week prior to arrival. Previously with auditory and visual hallucinations that are resolved. * Suspect metabolic encephalopathy given renal failure and hypercalcemia * Head CT 04/24 reviewed with no acute findings. Repeat head CT 04/26 again no acute findings. Unable to obtain MRI brain due to pacemaker. * Ammonia, B12, and folate wnl. TSH low with normal T4 * Has been seen in consultation by neurology - appreciate input. * Nurse tells me that the patient seems to be confused more today, will get UA since she said it was dark in color. Will get UA with reflux culture. (3) Hypercalcemia: Code(s): E83.52 - Hypercalcemia Status: Resolved Assessment and Plan: * Related to excess use of TUMs in the setting of CKD. Calcium levels have normalized. * Appreciate nephrology consultation. Avoid TUMs. Treated with calcitonin which has since been discontinued * Bone scan performed 04/26 with abnormalities of the hip and lumbar spine; follow-up radiographs with degenerative changes. (4) Atrial fibrillation with RVR: Code(s): I48.91 - Unspecified atrial fibrillation Status: Acute Assessment and Plan: * With intermittent tachycardia into 110s. * Resume his home metoprolol, 50 mg Q12hrs, will increase to 100 mg Q12hrs today and monitor heart rate. On 04/27 Cardiology increased his Metoprolol to 150, but he continues to have a few low heart rates documented. * Continue therapeutic Lovenox while he remains NPO and his home eliquis is he ld. GI anticipates holding Eliquis x 48 hr following his PEG placement (Restart 05/09/21). Continue lovenox now (5) Aspiration pneumonia: Qualifiers: Aspiration pneumonia type: unspecified Laterality: unspecified latera lity Lung location: unspecified part of lung Qualified Code(s): J69.0 - Pneumonitis due to inhalation of food and vomit Code(s): J69.0 - Pneumonitis due to inhalation of food and vomit Status: Resolved Assessment and Plan: * Noted to have dyspnea with new onset coarse lung sounds 04/24. * CXR was concerning for aspiration pneumonia with increasing opacities in the bilateral mid and lower lung zones * Completed 7-day course of IV vancomycin and Unasyn. (6) Elevated troponin: Code(s): R77.8 - Other specified abnormalities of plasma proteins Status: Acute Assessment and Plan: * Elevated with peak up to 0.672. Suspect related to demand ischemia given atrial fibrillation with RVR. Remains asymptomatic. * Appreciate cardiology input. Echocardiogram reviewed (7) Chronic kidney disease, stage 4 (severe): Code(s): N18.4 - Chronic kidney disease, stage 4 (
--- NOTE | 2021-05-08 12:46 | PM.IMPN ---
Progress Note: A&P Assessment and Plan (1) Dysphagia: Qualifiers: Dysphagia type: oropharyngeal phase Qualified Code(s): R13.12 - Dysphagia, oropharyngeal phase Code(s): R13.10 - Dysphagia, unspecified Status: Acute Assessment and Plan: Failed MBS x3 with persistent silent aspiration. Etiology for this is unclear. Appears of neurogenic etiology as no structural causes were identified on EGD. NPO. Aspiration precautions. Continue speech therapy. PEG placement by Dr Sutton 05/07/21 Stop PPN. (2) Encephalopathy: Code(s): G93.40 - Encephalopathy, unspecified Status: Resolved Assessment and Plan: Presented with confusion ongoing for 1 week prior to arrival. Previously with auditory and visual hallucinations that are resolved. Suspect metabolic encephalopathy given renal failure and hypercalcemia Head CT 04/24 reviewed with no acute findings. Repeat head CT 04/26 again no acute findings. Unable to obtain MRI brain due to pacemaker. Ammonia, B12, and folate wnl. TSH low with normal T4 Has been seen in consultation by neurology - appreciate input. Nurse tells me that the patient seems to be confused more today, will get UA since she said it was dark in color. Will get UA with reflux culture. (3) Hypercalcemia: Code(s): E83.52 - Hypercalcemia Status: Resolved Assessment and Plan: Related to excess use of TUMs in the setting of CKD. Calcium levels have normalized. Appreciate nephrology consultation. Avoid TUMs. Treated with calcitonin which has since been discontinued Bone scan performed 04/26 with abnormalities of the hip and lumbar spine; follow-up radiographs with degenerative changes. (4) Atrial fibrillation with RVR: Code(s): I48.91 - Unspecified atrial fibrillation Status: Acute Assessment and Plan: With intermittent tachycardia into 110s. Resume his home metoprolol, 50 mg Q12hrs, will increase to 100 mg Q12hrs today and monitor heart rate. On 04/27 Cardiology increased his Metoprolol to 150, but he continues to have a few low heart rates documented. Continue therapeutic Lovenox while he remains NPO and his home eliquis is held. GI anticipates holding Eliquis x 48 hr following his PEG placement (Restart 05/09/21). Continue lovenox now (5) Aspiration pneumonia: Qualifiers: Aspiration pneumonia type: unspecified Laterality: unspecified laterality Lung location: unspecified part of lung Qualified Code(s): J69.0 - Pneumonitis due to inhalation of food and vomit Code(s): J69.0 - Pneumonitis due to inhalation of food and vomit Status: Resolved Assessment and Plan: Noted to have dyspnea with new onset coarse lung sounds 04/24. CXR was concerning for aspiration pneumonia with increasing opacities in the bilateral mid and lower lung zones Completed 7-day course of IV vancomycin and Unasyn. (6) Elevated troponin: Code(s): R77.8 - Other specified abnormalities of plasma proteins Status: Acute Assessment and Plan: Elevated with peak up to 0.672. Suspect related to demand ischemia given atrial fibrillation with RVR. Remains asymptomatic. Appreciate cardiology input. Echocardiogram reviewed (7) Chronic kidney disease, stage 4 (severe): Code(s): N18.4 - Chronic kidney disease, stage 4 (severe) Status: Acute Assessment and Plan: He is established with Nephrology. Renal function is consistent with his baseline and has improved throughout admission (Cr 3.0 on arrival improved and stable at 1.4 today). Monitor renal function closely. Renally dose medications. Appreciate nephrology input.
[2021-05-08] MEDS: INSULIN ASPART (*BKC) 100 UNITS/ML SUB-Q ×2 (12:47→18:06)
[2021-05-08 15:00] LABS: Add Urine Microscopic? YES; Appearance Urine Clear (Clear); Bilirubin Urine Negative (Negative); Blood Urine 1+ (Negative); Color Urine Yellow (Yellow); Glucose Urine UA 3+ mg/dL (Negative); Ketones Urine Negative (Negative); Leukocyte Esterase Ur Negative LEU/UL (Negative); Mucus Urine Rare /lpf; Nitrate Urine Negative (Negative); Protein Urine 2+ mg/dL (Negative); RBC Urine 0-2 /hpf (0-2); Specific Grav Ur 1.013 (1.001-1.035); Squamous Epithelial Cell Urine Rare /hpf (Few); Urobilinogen Urine Negative mg/dL (<2.0); WBC Urine 0-3 /hpf
[2021-05-08] MEDS: MORPHINE SULFATE (*CRX) 4 MG/ML INJ 3 MG IV PUSH ×2 (15:09→21:42)
[2021-05-08 17:50] LABS: Glucose Point of Care 202 mg/dl (65-105)
[2021-05-08] MEDS: METOPROLOL TARTRATE 50 MG TAB 100 MG FEED TUBE (21:28)
[2021-05-08 21:49] LABS: Glucose Point of Care 195 mg/dl (65-105)
[2021-05-08] MEDS: INSULIN GLARGINE (*BKC) 100 UNITS/ML 35 UNITS SUB-Q (21:49)
[2021-05-09] MEDS: ALPRAZolam (*CRX) 0.5 MG TABLET 1 MG PO (01:33)
[2021-05-09] MEDS: MORPHINE SULFATE (*CRX) 4 MG/ML INJ 3 MG IV PUSH (01:59)
[2021-05-09 06:00] VITALS: BP 110/80; PULSE 97; RESP 20; TEMP 36.8; O2SAT 100
[2021-05-09] MEDS: LEVOTHYROXINE SODIUM 100 MCG, LEVOTHYROXINE SODIUM 75 MCG 175 MCG PO (06:09)
[2021-05-09 06:53] LABS: Hematocrit 25.1 % (42.0-52.0); Hemoglobin 7.9 g/dL (14.0-18.0); Mean Corpuscular HGB Conc 31.5 g/dl (32-36); Mean Corpuscular Hemoglobin 27.3 pg (26-34); Mean Corpuscular Volume 86.9 fl (80-100); Mean Platelet Volume 12.2 fl (7.4-10.4); Platelet Count Result 99 k/mm3 (150-375); Red Blood Count 2.89 M/mm3 (4.6-6.20); Red Cell Distribution Width 14.7 % (11.5-14.5); White Blood Count 8.7 K/mm3 (4.5-10.0)
[2021-05-09 06:56] LABS: Glucose Point of Care 144 mg/dl (65-105)
[2021-05-09 07:13] LABS: Anion Gap 6 mmol/L (8-16); Blood Urea Nitrogen 32 mg/dL (9-20); Calcium 8.3 mg/dL (8.4-10.2); Carbon Dioxide 22 mmol/L (22-30); Chloride 106 mmol/L (98-107); Estimated CRCL calculation 48 ml/min; Estimated Glomerular Filt Rate 46; Glucose 130 mg/dL (65-110); Potassium 4.4 mmol/L (3.4-5.0); Sodium 134 mmol/L (137-145)
--- NOTE | 2021-05-09 08:06 | PM.PNNEP ---
Progress Note: A&P Assessment and Plan (1) Hypercalcemia: Code(s): E83.52 - Hypercalcemia Status: Resolved Assessment and Plan: Resolved Hypernatremia Resolved (2) Elevated troponin: Code(s): R77.8 - Other specified abnormalities of plasma proteins Status: Acute Assessment and Plan: The patient has atrial fibrillation with rapid ventricular rate. This caused a leak of troponin per Cardiology. (3) Chronic kidney disease, stage 4 (severe): Code(s): N18.4 - Chronic kidney disease, stage 4 (severe) Status: Acute Assessment and Plan: The patient's creatinine stable , and it is at baseline. Etiology is diabetes and hypertension. On low dose of diuretics He received some fluid during the procedure. He is off IV fluids now. (4) Afib: Code(s): I48.91 - Unspecified atrial fibrillation Status: Acute Assessment and Plan: The patient has AFib . Cardiology Is on the case. He continues on Eliquis Heart rate is in the 90s shortness of breath: breathing comfortably now. (5) Essential (primary) hypertension: Code(s): I10 - Essential (primary) hypertension Status: Acute Assessment and Plan: His blood pressure is doing well. 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 Qualified Code(s): E11.21 - Type 2 diabetes mellitus with diabetic nephropathy; Z79.4 - nursing home (current) use of insulin Code(s): E11.21 - Type 2 diabetes mellitus with diabetic nephropathy Status: Acute Assessment and Plan: On meds per hospitalist (8) Aspiration pneumonia: Qualifiers: Aspiration pneumonia type: unspecified Laterality: unspecified laterality Lung location: unspecified part of lung Qualified Code(s): J69.0 - Pneumonitis due to inhalation of food and vomit Code(s): J69.0 - Pneumonitis due to inhalation of food and vomit Status: Resolved Assessment and Plan: Neurology feels this is generalized weakness His PEG tube is in Subjective Date/time seen: 05/09/21 08:06 Interval history: patient is feeling okay today. getting tube feedings now. Tolerating it well. Exam Narrative: WDWN in NAD skin no rash or subcu nodules head ncat lungs clear bilaterally cor irreg no rub or gallop abd BS+ nontender and soft ext he has 1+ bilateral edema Objective Data Vital Signs Vital Signs: Vital Signs - 24 hr 05/08/21 08:37 05/08/21 12:48 05/08/21 16:00 Temperature 36.8 C Pulse Rate 116 H 115 H 89 Respiratory Rate 16 Blood Pressure 139/49 L Pulse Oximetry 99 05/08/21 20:00 05/08/21 21:28 05/08/21 22:00 Temperature 36.6 C Pulse Rate 83 99 83 Respiratory Rate 18 18 Blood Pressure 113/48 L Pulse Oximetry 100 100 05/09/21 06:00 Temperature 36.8 C Pulse Rate 97 Respiratory Rate 20 Blood Pressure 110/80 Pulse Oximetry 100 Intake/Output Intake/Output: Intake & Output 05/06/21 05/07/21 05/08/21 05/09/21 23:59 23:59 23:59 23:59 Intake Total 2250 250 3157 0 Output Total 900 1100 620 Balance 1350 -850 2537 0 Meds/Results Medications: Active Medications Generic Name Dose Route Start Last Admin Trade Name Freq PRN Reason Stop Dose Admin Albuterol 2.5 mg 04/25/21 09:53 Albuterol Sulfate Neb 2.5 Mg/0.5 Ml Inh INHALATION Q6HRT PRN Shortness Of Breath Dextrose 12.5 gm 04/24/21 12:31 Dextrose 50% 25 Gm/50 Ml Syringe IV PUSH PRN PRN Hypoglycemia Protocol Enoxaparin Sodium 105 mg 05/08/21 21:00 05/08/21 21:27 Enoxaparin 120 Mg/0.8 Ml Syringe SUB-Q
[2021-05-09 08:50] LABS: Reticulocyte Hemoglobin Conten 23.3 pg (28.2-35.7); Reticulocyte Percent 4.01 % (0.7-4.3); Reticulocytes Absolute 0.12 B/L (32.2-175.7)
[2021-05-09 08:54] LABS: Iron 11 ug/dL (49-181)
[2021-05-09 09:03] LABS: Percent Iron Saturation 4 % (20-50)
[2021-05-09] MEDS: ENOXAPARIN 120 MG/0.8 ML SYRINGE 105 MG SUB-Q (10:18)
[2021-05-09 10:19] VITALS: PULSE 97
[2021-05-09] MEDS: FUROSEMIDE 40 MG TABLET PO (10:19)
[2021-05-09] MEDS: METOPROLOL TARTRATE 50 MG TAB 100 MG FEED TUBE (10:19)
[2021-05-09] MEDS: PANTOPRAZOLE SODIUM IV 40 MG VIAL IV PUSH (10:20)
[2021-05-09 11:53] LABS: Glucose Point of Care 195 mg/dl (65-105)
--- NOTE | 2021-05-09 13:00 | PCSTNOTE ---
Reassessment completed. Improving in areas of swallowing strengthening exercises. Was unable to voluntarily cough and now is able to complete a cough. Continue while inpatient. Recommend continued ST upon discharge.
--- NOTE | 2021-05-09 13:31 | PM.DS ---
DS: Admitting Diagnosis Admitting Diagnosis Elevated Calcium levels DS: Discharge Diagnosis Discharge Diagnosis (1) Dysphagia: Qualifiers: Dysphagia type: oropharyngeal phase Qualified Code(s): R13.12 - Dysphagia, oropharyngeal phase Code(s): R13.10 - Dysphagia, unspecified Status: Acute Assessment and Plan: The patient is a 70 year old man with a history of CAD, type 2 DM insulin dependent, CKD, HTN, Afib on chronic anticoagulation, who presented to the ER with elevated calcium levels on outpatient labs and sent in by his Primary Education Professor. The patient had been having some epigastric discomfort and so he has been taking Tums 6-7 times daily as well as feeling generalized weakness. The patient's initial vitals were stable. Initial labs showed normal white blood cell count, normal neutrophil count, normocytic anemia with a hemoglobin of 10, hematocrit 34%, thrombopenia 129, slight hyponatremia at 133, creatinine at 3.0, BUN 37, calcium was 13.7, ionized calcium was 7.1, normal LFTs, troponins were elevated at 0.672, then trending down. Urinalysis showing no signs of acute infection. chest x-ray showed cardiomegaly. CT brain showed no acute intracranial process, age-related changes including mild diffuse volume loss and mild scattered white matter hypoattenuation consistent with chronic small vessel ischemic disease. The patient was admitted into the hospital with a consult to Nephrology due to elevated calcium levels and the patient was started on Calcitonin for a few days with improvement of Calcium level back within normal range. Renal US completed by Nephrology was unremarkable without hydronephrosis. Nephrology also ordered a NM Bone Scan which showed atypical focus of increased uptake at the right greater trochanter which in absence of other imaging has a wide differential including malignant, infectious, posttraumatic or degenerative etiologies. Recommend right hip radiographs for correlation. Additional mild increased uptake at the lower cervical spine and at multiple lumbar vertebral bodies. The uptake at the vertebral bodies appears more extensive than typical for degenerative change and would recommend additional lumbar spine radiographs for correlation. XR Hip/Pelvis showed Mild bilateral hip osteoarthritis. Extensive arterial calcifications and bilateral vas deferens calcifications, suggesting diabetes. Lumbar Spine showed Extensive degenerative changes of the lumbar spine which account for the increased uptake noted on the 04/26/2021. Consult to cardiology to elevated troponin levels and Afib with RVR, who increased his Metoprolol for better heart rate control and Echocardiogram showed normal EF, unable to determine diastolic function, and moderate concentric increased LVH. During the patient's admission he continued to have some confusion and family stated it had been going on since 1 week prior to hospitalization. Repeat CT scan was done on his brain on 04/26/2021 since he was unable to obtain an MRI due to pacemaker another hardware in his spine which showed No acute intracranial findings. Chronic age related findings. During the patient's admission he was found to be coughing with eating and drinking. A repeat chest x-ray was completed showing possible aspiration pneumonia. He was placed NPO with a modified barium swallow on 04/25 which was abnormal and speech therapy recommended the patient to have nothing by mouth. The patient continued with Speech Therapy and Failed MBS x3 with persistent silent aspiration. Etiology for this is unclear. GI was consulted for further evaluation of the cause of dysphagia and they found no structual cause, believed to have neurogenic etiology. After multiple tests, MBS and speech therapy evaluation it was finally decided to place the patient needed a PEG tube which was placed by GI on 05/07/21. Patient was stated on Glucerna 1.2 feedings at a rate of 70 cc/hr and tolerating well. C
[2021-05-09] MEDS: IRON SUCROSE COMPLEX 200 MG in SODIUM CHLORIDE 0.9% IV 50 ML 120 MG IVPB (13:39)
[2021-05-09 14:00] VITALS: BP 109/48; PULSE 68; RESP 12; TEMP 37; O2SAT 100
[2021-05-09] MEDS: ACETAMINOPHEN/CODEINE (*CRX) 300/30 MG TABLET 2 TAB PO (14:35)
== END 2021-05-09 15:45 | DRG 917 ==
LOC: ANHED 04-24 02:15 → ANHIMU 04-24 05:13 → ANH3MEDSUR 04-27 17:35 → ANHIMU 05-10 14:48
PROVIDERS: Internal Medicine Gastroenterology; Internal Medicine Nephrology; Physician Assistant; Admitting Provider Internal Medicine; Emergency Provider Emergency Medicine; PCP Physician Assistant Medical; Visit Provider Physician Assistant
PROC: 0DJ08ZZ Inspection of Upper Intestinal Tract, Via Natural or Artificial Opening Endoscopic (ICD-10-PCS; CPT 43235; principal; 2021-05-03 11:30)
PROC: 0DH63UZ Insertion of Feeding Device into Stomach, Percutaneous Approach (ICD-10-PCS; CPT 43246; principal; 2021-05-07 13:30)
DX: T47.1X1A Poisoning by other antacids and anti-gastric-secretion drugs, accidental (unintentional), initial encounter (principal); N18.6 End stage renal disease; J69.0 Pneumonitis due to inhalation of food and vomit; G93.41 Metabolic encephalopathy; N17.9 Acute kidney failure, unspecified; N18.4 Chronic kidney disease, stage 4 (severe); E87.0 Hyperosmolality and hypernatremia; I24.8 Other forms of acute ischemic heart disease; S37.39XA Other injury of urethra, initial encounter; E87.1 Hypo-osmolality and hyponatremia; E83.52 Hypercalcemia; K21.9 Gastro-esophageal reflux disease without esophagitis; I48.91 Unspecified atrial fibrillation; I25.10 Atherosclerotic heart disease of native coronary artery without angina pectoris; Z79.4 Long term (current) use of insulin; E78.5 Hyperlipidemia, unspecified; I12.9 Hypertensive chronic kidney disease with stage 1 through stage 4 chronic kidney disease, or unspecified chronic kidney disease; E11.22 Type 2 diabetes mellitus with diabetic chronic kidney disease; Z79.01 Long term (current) use of anticoagulants; Y92.9 Unspecified place or not applicable; E11.21 Type 2 diabetes mellitus with diabetic nephropathy; G89.29 Other chronic pain; M54.2 Cervicalgia; M54.9 Dorsalgia, unspecified; E87.70 Fluid overload, unspecified; D63.1 Anemia in chronic kidney disease; R31.0 Gross hematuria; E03.9 Hypothyroidism, unspecified; Y84.6 Urinary catheterization as the cause of abnormal reaction of the patient, or of later complication, without mention of misadventure at the time of the procedure; Y73.1 Therapeutic (nonsurgical) and rehabilitative gastroenterology and urology devices associated with adverse incidents; Y92.230 Patient room in hospital as the place of occurrence of the external cause; Y93.9 Activity, unspecified; Y99.9 Unspecified external cause status; R13.12 Dysphagia, oropharyngeal phase; Z95.0 Presence of cardiac pacemaker; K29.70 Gastritis, unspecified, without bleeding
CPT/HCPCS: 36415; 43246; 70450; 71045; 72100; 73502; 76775; 78306; 80048; 80053; 80069; 80202; 81001; 82085; 82140; 82330; 82550; 82607; 82746; 82948; 83036; 83540; 83550; 83735; 83883; 84100; 84439; 84443; 84466; 84478; 84480; 84484; 85014; 85018; 85025; 85027; 85046; 85055; 85610; 85730; 86334; 86335; 87040; 87077; 87081; 87086; 87088; 92526; 92610; 92611; 93005; 95816; 96361; 96374; 96375; 97110; 97116; 97161; 97165; 97530; 97535; 99285; A9270; A9561; C8929; C9113; J0131; J0295; J0630; J0690; J1170; J1644; J1650; J1756; J1815; J1940; J2060; J2270; J2405; J2704; J3370; J3480; J7030; J7120; Q5106; Q9957